=== PATIENT | female | born 1950 | race Caucasian/White ===

== ENCOUNTER 2020-06-30 09:27 | Outpatient (REF) | payer MEDICARE, SELFPAY ==
[2020-06-30 11:49] LABS: Alanine Aminotransferase 30 U/L (0-31); Anion Gap 13 (12-20); Aspartate Amino Transferase 25 U/L (5-31); Blood Urea Nitrogen 29 mg/dL (9-16); Calcium 9.1 mg/dL (8.4-10.2); Carbon Dioxide 25 mmol/L (22-29); Chloride 107 mmol/L (96-108); Cholesterol 167 mg/dL; Estimated Average Glucose 134 mg/dL; Estimated Glomerular Filt Rate 45; Glucose Fasting 154 mg/dL (60-99); HDL Cholesterol 43 mg/dL; Hemoglobin A1c % 6.3 %; LDL Cholesterol Calculated 73 mg/dl; Potassium 4.5 mmol/l (3.3-5.1); Sodium 140 mmol/L (135-145); Triglycerides 256 mg/dL
== END 2020-06-30 09:28 | disposition home or self-care (01) ==
LOC: HO.HMGCLDS 09:27
PROVIDERS: PCP Internal Medicine; Visit Provider Internal Medicine
DX: E11.29 Type 2 diabetes mellitus with other diabetic kidney complication (principal); E78.2 Mixed hyperlipidemia; E11.22 Type 2 diabetes mellitus with diabetic chronic kidney disease; E11.42 Type 2 diabetes mellitus with diabetic polyneuropathy; N18.9 Chronic kidney disease, unspecified; M47.27 Other spondylosis with radiculopathy, lumbosacral region; I87.2 Venous insufficiency (chronic) (peripheral)
CPT/HCPCS: 80048; 80061; 83036; 84450; 84460

== ENCOUNTER 2020-10-09 10:20 | Outpatient (REF) | payer MEDICARE, SELFPAY ==
[2020-10-09 11:47] LABS: Estimated Average Glucose 126 mg/dL
[2020-10-09 11:50] LABS: Alanine Aminotransferase 35 U/L (0-31); Anion Gap 12 (12-20); Aspartate Amino Transferase 28 U/L (5-31); Blood Urea Nitrogen 26 mg/dL (9-16); Calcium 9.2 mg/dL (8.4-10.2); Carbon Dioxide 28 mmol/L (22-29); Chloride 105 mmol/L (96-108); Cholesterol 181 mg/dL; Estimated Glomerular Filt Rate 43; Glucose Fasting 155 mg/dL (60-99); HDL Cholesterol 46 mg/dL; LDL Cholesterol Calculated 69 mg/dl; Potassium 4.4 mmol/L (3.3-5.1); Sodium 141 mmol/L (135-145); Triglycerides 332 mg/dL
[2020-10-09 12:24] LABS: Microalbum/Creatinine Ratio Ur 28.1 ug/mg cr
== END 2020-10-09 10:21 | disposition home or self-care (01) ==
LOC: HO.HMGCLDS 10:20
PROVIDERS: PCP Internal Medicine; Visit Provider Internal Medicine
DX: E11.29 Type 2 diabetes mellitus with other diabetic kidney complication (principal); E11.42 Type 2 diabetes mellitus with diabetic polyneuropathy; E78.2 Mixed hyperlipidemia; N18.9 Chronic kidney disease, unspecified; I10 Essential (primary) hypertension
CPT/HCPCS: 36415; 80048; 80061; 82043; 83036; 84450; 84460

== ENCOUNTER 2020-10-27 11:31 | Outpatient (REF) | payer MEDICARE, SELFPAY ==
--- NOTE | ~2020-10-27 | MM_ITS ---
EXAMINATION: MM SCREENING DIGITAL MAMMOGRAPHY, BILATERAL CLINICAL INFORMATION: Bilateral lumpectomy for bilateral breast cancer, May 2015. COMPARISON: Mammography: 07/18/2019, 07/16/2018, 06/23/2017, 05/23/2016 TECHNIQUE: Digital mammography is performed in craniocaudal and mediolateral oblique views along with computer-aided detection (CAD). Additional right exaggerated CC view is provided. Technologist notes challenging exam, patient in wheelchair. Exam tailored to patient capabilities. FINDINGS: There are scattered areas of fibroglandular density (ACR BI-RADS breast composition Category b). There are no significant masses, abnormal calcifications, or other abnormalities. There is minor bilateral scarring and surgical clips consistent with the prior bilateral lumpectomies. There is no significant changes from prior exams. MM/MM screening mammo BI IMPRESSION: No significant changes from prior studies. ASSESSMENT: BI-RADS 2: Benign RECOMMENDATION: Routine annual mammography screening. This patient's information was entered into a reminder system with a target due date for their next mammogram.
== END 2020-10-27 11:32 | disposition home or self-care (01) ==
LOC: HO.MAMMO 11:31
PROVIDERS: PCP Internal Medicine; Visit Provider Internal Medicine
DX: Z12.31 Encounter for screening mammogram for malignant neoplasm of breast (principal)
CPT/HCPCS: 77067

== ENCOUNTER 2021-03-23 10:27 | Outpatient (REF) | payer MEDICARE, SELFPAY ==
[2021-03-23 11:40] LABS: Anion Gap 15 (12-20); Blood Urea Nitrogen 23 mg/dL (9-16); Calcium 9.5 mg/dL (8.4-10.2); Carbon Dioxide 25 mmol/L (22-29); Chloride 106 mmol/L (96-108); Estimated Glomerular Filt Rate 41; Potassium 4.6 mmol/L (3.3-5.1); Sodium 141 mmol/L (135-145)
== END 2021-03-23 10:28 | disposition home or self-care (01) ==
LOC: HO.HMGCLDS 10:27
PROVIDERS: PCP Internal Medicine; Visit Provider Internal Medicine Hypertension Specialist
DX: N18.31 Chronic kidney disease, stage 3a (principal)
CPT/HCPCS: 36415; 80051; 82310; 82565; 84520

== ENCOUNTER 2021-04-16 09:20 | Outpatient (REF) | payer MEDICARE, SELFPAY ==
[2021-04-16 11:24] LABS: MANUAL DIFF FLAG NO
[2021-04-16 11:36] LABS: Basophils Percent Auto 0.3 % (0-2); Eosinophils Absolute Auto 0.1 X10*3/uL (0.0-0.4); Eosinophils Percent Auto 1.5 % (0-4); Hematocrit 48.3 % (37-47); Hemoglobin 16.2 g/dl (12.0-16.0); Imm Gran Abs Auto 0.02 X10*3/uL (0.00-0.03); Imm Gran Pct Auto 0.3 % (0.0-0.4); Lymphocytes Absolute Auto 1.6 X10*3/uL (1.2-4.9); Mean Corpuscular HGB Conc 33.5 g/dl (31.0-35.0); Mean Corpuscular Hemoglobin 32.2 pg (27.0-33.0); Mean Platelet Volume 11.7 fL (9.4-12.3); Monocytes Absolute Auto 0.3 X10*3/uL (0.1-1.2); Monocytes Percent Auto 4.1 % (2-11); Neutrophils Absolute Auto 5.7 X10*3/uL (2.0-8.3); Neutrophils Percent Auto 72.8 % (45-73); Platelet Count 145 X10*3/uL (160-400); Red Blood Count 5.03 X10*6/uL (4.20-5.50); Red Cell Distribution Width 14.1 % (11.0-16.0); White Blood Count 7.8 X10*3/uL (4.8-10.8)
[2021-04-16 11:42] LABS: Estimated Average Glucose 120 mg/dL; Hemoglobin A1c % 5.8 %
[2021-04-16 12:08] LABS: Alanine Aminotransferase 29 U/L (0-31); Albumin Level 4.2 g/dL (3.5-5.0); Alkaline Phosphatase 86 U/L (39-117); Anion Gap 14 (12-20); Aspartate Amino Transferase 24 U/L (5-31); Bilirubin Total 0.8 mg/dL (0.0-1.0); Blood Urea Nitrogen 27 mg/dL (9-16); Calcium 9.4 mg/dL (8.4-10.2); Carbon Dioxide 22 mmol/L (22-29); Chloride 109 mmol/L (96-108); Cholesterol 175 mg/dL; Estimated Glomerular Filt Rate 41; Glucose Random 149 mg/dL (60-115); HDL Cholesterol 45 mg/dL; LDL Cholesterol Calculated 67 mg/dl; Potassium 4.5 mmol/L (3.3-5.1); Sodium 140 mmol/L (135-145); Total Protein 6.4 g/dL (6.5-8.0); Triglycerides 319 mg/dL
== END 2021-04-16 09:21 | disposition home or self-care (01) ==
LOC: HO.HMGCLDS 09:20
PROVIDERS: PCP Internal Medicine; Visit Provider Internal Medicine Medical Oncology
DX: E11.29 Type 2 diabetes mellitus with other diabetic kidney complication (principal); E11.42 Type 2 diabetes mellitus with diabetic polyneuropathy; E78.2 Mixed hyperlipidemia; C50.911 Malignant neoplasm of unspecified site of right female breast; C50.912 Malignant neoplasm of unspecified site of left female breast
CPT/HCPCS: 36415; 80053; 80061; 83036; 85025

== ENCOUNTER 2021-09-21 10:24 | Outpatient (REF) | payer MEDICARE, SELFPAY ==
[2021-09-21 12:32] LABS: Alanine Aminotransferase 23 U/L (0-31); Albumin Level 3.9 g/dL (3.5-5.0); Alkaline Phosphatase 89 U/L (39-117); Anion Gap 16 (12-20); Aspartate Amino Transferase 18 U/L (5-31); Bilirubin Total 0.5 mg/dL (0.0-1.0); Blood Urea Nitrogen 25 mg/dL (9-16); Carbon Dioxide 24 mmol/L (22-29); Chloride 107 mmol/L (96-108); Estimated Glomerular Filt Rate 41; Glucose Random 208 mg/dL (60-115); Potassium 4.8 mmol/L (3.3-5.1); Sodium 142 mmol/L (135-145)
[2021-09-21 12:39] LABS: Creatinine Urine 97.65 mg/dL; Total Protein Urine Random < 7 mg/dL (<12)
== END 2021-09-21 10:25 | disposition home or self-care (01) ==
LOC: HO.HMGCLDS 10:24
PROVIDERS: Visit Provider Internal Medicine Hypertension Specialist
DX: N28.9 Disorder of kidney and ureter, unspecified (principal)
CPT/HCPCS: 36415; 80053; 84156

== ENCOUNTER 2021-10-29 11:15 | Outpatient (REF) | payer MEDICARE, SELFPAY ==
--- NOTE | ~2021-10-29 | MM_ITS ---
EXAMINATION: MM SCREENING DIGITAL BREAST TOMOSYNTHESIS, BILATERAL CLINICAL INFORMATION: Screening. Asymptomatic. Bilateral lumpectomy for breast cancer, 2015. COMPARISON: Mammography: 10/27/2020, 07/18/2019, 07/16/2018, 06/23/2017 TECHNIQUE: Digital breast tomosynthesis is performed in both the craniocaudal and mediolateral oblique views along with computer-aided detection (CAD). Synthesized 2D images are generated from the tomosynthesis. Additional left CC and left MLO x2 projections are obtained. FINDINGS: There are scattered areas of fibroglandular density (ACR BI-RADS breast composition Category b). There is minor bilateral scarring and posterior upper outer right surgical clips consistent with the prior surgery. Neither breast shows interval mass or architectural abnormality or abnormal calcifications. The axilla and skin contours are unremarkable. There are no significant changes. MM/MM tomosynthesis screening BI IMPRESSION: No mammographic evidence of malignancy. ASSESSMENT: BI-RADS 2: Benign RECOMMENDATION: Routine annual mammography screening. This patient's information was entered into a reminder system with a target due date for their next mammogram.
== END 2021-10-29 11:16 | disposition home or self-care (01) ==
LOC: HO.MAMMO 11:15
PROVIDERS: PCP Internal Medicine; Visit Provider Internal Medicine
DX: Z12.31 Encounter for screening mammogram for malignant neoplasm of breast (principal); Z85.3 Personal history of malignant neoplasm of breast
CPT/HCPCS: 77063; 77067

== ENCOUNTER 2021-12-17 09:48 | Outpatient (REF) | payer MEDICARE, SELFPAY ==
[2021-12-17 12:12] LABS: Estimated Average Glucose 117 mg/dL; Hemoglobin A1c % 5.7 %
[2021-12-17 12:16] LABS: Alanine Aminotransferase 25 U/L (0-31); Anion Gap 14 (12-20); Aspartate Amino Transferase 22 U/L (5-31); Blood Urea Nitrogen 29 mg/dL (9-16); Calcium 9.1 mg/dL (8.4-10.2); Carbon Dioxide 24 mmol/L (22-29); Chloride 107 mmol/L (96-108); Cholesterol 169 mg/dL; Estimated Glomerular Filt Rate 40; Glucose Fasting 155 mg/dL (60-99); HDL Cholesterol 45 mg/dL; LDL Cholesterol Calculated 75 mg/dl; Sodium 140 mmol/L (135-145); Triglycerides 247 mg/dL
== END 2021-12-17 09:49 | disposition home or self-care (01) ==
LOC: HO.HMGCLDS 09:48
PROVIDERS: PCP Internal Medicine; Visit Provider Internal Medicine
DX: I12.9 Hypertensive chronic kidney disease with stage 1 through stage 4 chronic kidney disease, or unspecified chronic kidney disease (principal); N18.9 Chronic kidney disease, unspecified; E11.22 Type 2 diabetes mellitus with diabetic chronic kidney disease; E11.29 Type 2 diabetes mellitus with other diabetic kidney complication; E11.42 Type 2 diabetes mellitus with diabetic polyneuropathy; E78.2 Mixed hyperlipidemia; Z78.0 Asymptomatic menopausal state
CPT/HCPCS: 36415; 80048; 80061; 82306; 83036; 84450; 84460

== ENCOUNTER 2021-12-21 10:33 | Outpatient (REF) | payer MEDICARE, SELFPAY ==
[2021-12-21 12:44] LABS: Microalbumin Urine < 5.0 mg/L
== END 2021-12-21 10:34 | disposition home or self-care (01) ==
LOC: HO.HMGCLNP 10:33
PROVIDERS: PCP Internal Medicine; Visit Provider Internal Medicine
DX: I12.9 Hypertensive chronic kidney disease with stage 1 through stage 4 chronic kidney disease, or unspecified chronic kidney disease (principal); E11.22 Type 2 diabetes mellitus with diabetic chronic kidney disease; E11.29 Type 2 diabetes mellitus with other diabetic kidney complication; E11.42 Type 2 diabetes mellitus with diabetic polyneuropathy; N18.9 Chronic kidney disease, unspecified; E78.2 Mixed hyperlipidemia; Z78.0 Asymptomatic menopausal state
CPT/HCPCS: 82043

== ENCOUNTER 2022-05-06 10:42 | Outpatient (REF) | payer MEDICARE, SELFPAY ==
[2022-05-06 14:22] LABS: Anion Gap 18 (12-20); Blood Urea Nitrogen 22 mg/dL (9-16); Calcium 9.2 mg/dL (8.4-10.2); Carbon Dioxide 23 mmol/L (22-29); Chloride 106 mmol/L (96-108); Estimated Glomerular Filt Rate 43; Potassium 4.5 mmol/L (3.3-5.1); Sodium 142 mmol/L (135-145)
== END 2022-05-06 10:43 | disposition home or self-care (01) ==
LOC: HO.HMGCLDS 10:42
PROVIDERS: PCP Internal Medicine; Visit Provider Internal Medicine Hypertension Specialist
DX: N18.31 Chronic kidney disease, stage 3a (principal)
CPT/HCPCS: 36415; 80051; 82310; 82565; 84520

== ENCOUNTER 2022-05-24 09:46 | Outpatient (REF) | payer MEDICARE, SELFPAY ==
[2022-05-24 11:56] LABS: Estimated Average Glucose 126 mg/dL
[2022-05-24 12:21] LABS: Alanine Aminotransferase 24 U/L (0-31); Anion Gap 14 (12-20); Aspartate Amino Transferase 20 U/L (5-31); Blood Urea Nitrogen 29 mg/dL (9-16); Calcium 8.7 mg/dL (8.4-10.2); Carbon Dioxide 25 mmol/L (22-29); Chloride 109 mmol/L (96-108); Cholesterol 155 mg/dL; Estimated Glomerular Filt Rate 44; Glucose Fasting 164 mg/dL (60-99); HDL Cholesterol 44 mg/dL; LDL Cholesterol Calculated 63 mg/dl; Sodium 143 mmol/L (135-145); Triglycerides 244 mg/dL
== END 2022-05-24 09:47 | disposition home or self-care (01) ==
LOC: HO.HMGCLDS 09:46
PROVIDERS: PCP Internal Medicine; Visit Provider Internal Medicine
DX: I12.9 Hypertensive chronic kidney disease with stage 1 through stage 4 chronic kidney disease, or unspecified chronic kidney disease (principal); E11.22 Type 2 diabetes mellitus with diabetic chronic kidney disease; N18.9 Chronic kidney disease, unspecified; E11.42 Type 2 diabetes mellitus with diabetic polyneuropathy; E78.2 Mixed hyperlipidemia
CPT/HCPCS: 36415; 80048; 80061; 82306; 83036; 84450; 84460

== ENCOUNTER 2022-11-18 10:23 | Outpatient (REF) | payer MEDICARE, SELFPAY ==
--- NOTE | ~2022-11-18 | MM_ITS ---
EXAMINATION: BONE DENSITOMETRY CLINICAL INDICATION: Chronic kidney disease, unspecified. COMPARISON: Previous BD dated 06/23/2017 and baseline BD dated 01/12/2006. TECHNIQUE: Using a Sustain360 DXA System (software version: 13.1) manufactured by [employer], dual-energy x-ray absorptiometry was performed of the lumbar spine and left hip. The images are of good technical quality. Summary results are attached. FINDINGS: AP SPINE L1-L4 (excluding L2 and L3): The data of L1-L4 has been changed to exclude the L2 and L3 vertebral bodies, because degenerative changes at these levels may cause overestimation of lumbar spine density. Current: BMD 1.644 g/cm2, Z-score 4.5, T-score 4.0, normal, 3.1% increase from previous, 24.4% increase from baseline (<5% change is not significant). Prior: BMD 1.594 g/cm2. Baseline: BMD 1.322 g/cm2. LEFT FEMUR, NECK: Current: BMD 0.809 g/cm2, Z-score -0.6, T-score -1.6, osteopenia. Prior: BMD 0.881 g/cm2. Baseline: BMD 0.970 g/cm2. LEFT FEMUR, TOTAL: Current: BMD 0.947 g/cm2, Z-score 0.3, T-score -0.5, normal, 2.0% decrease from previous, 12.7% decrease from baseline (<5% change is not significant). Prior: BMD 0.966 g/cm2. Baseline: BMD 1.085 g/cm2. IDENTIFIED RISK FACTORS: Menopause, recurrent falls, renal, secondary osteoporosis, thiazide. HISTORY OF FRACTURE: None listed. MEDICATIONS: Multivitamin, vitamin D. MM/XR DEXA axial skeleton IMPRESSION: 1. DIAGNOSIS: Osteopenia based on the lowest T-score value of -1.6 in the femoral neck applying World Health Organization criteria. 2. 10-YEAR FRACTURE RISK PREDICTION, FRAX: Major osteoporotic fracture (clinical spine, forearm, hip or shoulder) 8.9%. Hip fracture 1.4%. 3. Treatment Recommendations: NOF guidelines recommend consideration for treatment in postmenopausal women and men age 50 and older presenting with the following: -A hip or vertebral (clinical or morphometric) fracture. -T-score less than or equal to -2.5 at the femoral neck or spine after appropriate evaluation to exclude secondary causes. -Low bone mass at the hip or spine and a 10-year fracture probability by FRAX of greater than or equal to 3% for hip fracture or greater than or equal to 20% for major osteoporotic fracture based on the [place] adapted WHO algorithm. 4. Other Recommendations: All treatment decisions require clinical judgment and consideration of individual patient factors, including patient preferences, comorbidities, previous drug use, risk factors not captured in the FRAX model (e.g. frailty, falls, vitamin D deficiency, increased bone turnover, interval significant decline in bone density) and possible under or overestimation of fracture risk by FRAX. Additional medical evaluation for secondary cause of low bone mineral density may be appropriate. FUTURE SCAN RECOMMENDATION: People with diagnosed cases of osteoporosis or at high risk for fracture should have regular bone mineral density tests. For patients eligible for Medicare, routine testing is allowed once every 2 years. The testing frequency can be increased to one year for patients who have rapidly progressing disease, those who are receiving or discontinuing medical therapy to restore bone mass, or have additional risk factors.
--- NOTE | ~2022-11-18 | MM_ITS ---
EXAMINATION: MM SCREENING DIGITAL BREAST TOMOSYNTHESIS, BILATERAL CLINICAL INFORMATION: Screening. Asymptomatic. Personal history bilateral breast cancer status post bilateral lumpectomy 2014. COMPARISON: Mammography: 10/29/2021, 10/27/2020, 07/18/2019, 07/16/2018 TECHNIQUE: Digital breast tomosynthesis is performed in both the craniocaudal and mediolateral oblique views along with computer-aided detection (CAD). Synthesized 2D images are generated from the tomosynthesis. Additional exaggerated right CC and additional left CC views are provided. FINDINGS: There are scattered areas of fibroglandular density (ACR BI-RADS breast composition Category b). There is stable scarring consistent with the prior bilateral lumpectomy. Surgical clips again seen on the right. Neither breast demonstrates developing density or interval architectural abnormality or abnormal calcifications. There are no significant changes from prior studies. The axilla are unremarkable. MM/MM tomosynthesis screening BI IMPRESSION: No mammographic evidence of malignancy. ASSESSMENT: BI-RADS 2: Benign RECOMMENDATION: Routine annual mammography screening. This patient's information was entered into a reminder system with a target due date for their next mammogram.
== END 2022-11-18 10:24 | disposition home or self-care (01) ==
LOC: HO.MAMMO 10:23
PROVIDERS: PCP Internal Medicine; Visit Provider Internal Medicine
DX: Z13.820 Encounter for screening for osteoporosis (principal); Z12.31 Encounter for screening mammogram for malignant neoplasm of breast; Z78.0 Asymptomatic menopausal state
CPT/HCPCS: 77063; 77067; 77080

== ENCOUNTER 2022-11-21 09:19 | Outpatient (REF) | payer MEDICARE, SELFPAY ==
[2022-11-21 11:20] LABS: MANUAL DIFF FLAG NO
[2022-11-21 11:37] LABS: Basophils Percent Auto 0.5 % (0-2); Eosinophils Absolute Auto 0.1 X10*3/uL (0.0-0.4); Eosinophils Percent Auto 0.8 % (0-4); Hematocrit 47.8 % (37.0-47.0); Hemoglobin 15.9 g/dl (12.0-16.0); Imm Gran Abs Auto 0.02 X10*3/uL (0.00-0.03); Imm Gran Pct Auto 0.3 % (0.0-0.4); Lymphocytes Absolute Auto 1.3 X10*3/uL (1.2-4.9); Lymphocytes Percent Auto 20.8 % (20-40); Mean Corpuscular HGB Conc 33.3 g/dl (31.0-35.0); Mean Corpuscular Hemoglobin 32.1 pg (27.0-33.0); Mean Corpuscular Volume 96.4 fL (80.0-98.0); Mean Platelet Volume 11.6 fL (9.4-12.3); Monocytes Absolute Auto 0.3 X10*3/uL (0.1-1.2); Monocytes Percent Auto 4.7 % (2-11); Neutrophils Absolute Auto 4.7 x10*3/uL (2.0-8.3); Neutrophils Percent Auto 72.9 % (45-73); Platelet Count 129 X10*3/uL (160-400); Red Blood Count 4.96 X10*6/uL (4.20-5.50); Red Cell Distribution Width 14.2 % (11.0-16.0); White Blood Count 6.4 X10*3/uL (4.8-10.8)
[2022-11-21 11:53] LABS: Estimated Average Glucose 120 mg/dL; Hemoglobin A1c % 5.8 %
[2022-11-21 11:57] LABS: Alanine Aminotransferase 28 U/L (0-31); Anion Gap 12 (12-20); Aspartate Amino Transferase 22 U/L (5-31); Blood Urea Nitrogen 23 mg/dL (9-16); Calcium 9.1 mg/dL (8.4-10.2); Carbon Dioxide 24 mmol/L (22-29); Chloride 108 mmol/L (96-108); Cholesterol 167 mg/dL; Estimated Glomerular Filt Rate 45; Glucose Fasting 152 mg/dL (60-99); HDL Cholesterol 46 mg/dL; LDL Cholesterol Calculated 71 mg/dl; Potassium 4.2 mmol/L (3.3-5.1); Sodium 140 mmol/L (135-145); Triglycerides 250 mg/dL; Uric Acid 6.3 mg/dL (2.4-5.7)
[2022-11-21 12:01] LABS: Microalbum/Creatinine Ratio Ur 252.7 ug/mg cr
[2022-11-21 12:17] LABS: Vitamin D 25-OH Total 55.9 ng/mL (>30)
== END 2022-11-21 09:20 | disposition home or self-care (01) ==
LOC: HO.HMGCLDS 09:19
PROVIDERS: Absent Provider Internal Medicine Hypertension Specialist; PCP Internal Medicine; Visit Provider Internal Medicine
DX: I12.9 Hypertensive chronic kidney disease with stage 1 through stage 4 chronic kidney disease, or unspecified chronic kidney disease (principal); M10.9 Gout, unspecified; E11.42 Type 2 diabetes mellitus with diabetic polyneuropathy; E11.29 Type 2 diabetes mellitus with other diabetic kidney complication; E78.2 Mixed hyperlipidemia; N18.31 Chronic kidney disease, stage 3a; Z78.0 Asymptomatic menopausal state
CPT/HCPCS: 36415; 80048; 80061; 82043; 82306; 83036; 84450; 84460; 84550; 85025

== ENCOUNTER 2022-11-28 11:16 | Outpatient (AMB) | payer MEDICARE, SELFPAY ==
--- NOTE | 2022-11-28 11:24 | A.OFFPC_ITS ---
Vital Signs 11/28/22 11:58 Height 5 ft 5 in Weight 283 lb BMI 47.1 BP 132/60 Blood Pressure Location Lt brachial Position Sitting Pulse 72 Pulse Source Pulse Oximeter Pulse Oximetry (%) 97 Oxygen Delivery Method Room Air Intake Visit Reasons: 6 month follow up Intake Note: Pt is here today for her 6 months f/u Allergies No Known Allergies Allergy (Mild, Verified 09/17/23 17:25) NONE Medication List - Last Reconciled 11/28/22 by Savannah Mendiola MD acetaminophen ER 650 mg PO Q8H PRN allopurinol 300 mg PO DAILY aspirin 81 mg PO DAILY blood sugar diagnostic (FreeStyle Lite Strips) Test blood sugar once a day blood-glucose meter As directed cholecalciferol (vitamin D3) (Vitamin D3) 50 mcg PO DAILY clotrimazole 1% 1 appl topical BID PRN 3 months gabapentin 300 mg PO BID hydrochlorothiazide 12.5 mg PO DAILY lancets As directed lisinopril 30 mg PO DAILY metformin 1,000 mg PO BID 90 days metoprolol succinate ER 25 mg PO BEDTIME multivitamin 1 cap PO DAILY omega 9-grl-was-fish oil 1,200 (144-216) mg (Fish Oil) 1 cap PO TID pravastatin 20 mg PO DAILY Tobacco use date assessed: 11/28/22 Fall risk assessment: 2 + Falls in past year Last assessed Fall Risk: 11/28/22 HPI 6 month follow up HPI Details 73-year-old lady diabetes mellitus, mixe d dyslipidemia and chronic kidney disease stage 3, here today for follow-up. Has been compliant with her medications and following her diet, unable to exercise much due to joint pain and weakness in both lower extremities. Complaining of intermittent episodes of loose stools on and off for the last several weeks, denies any accompanying melena no hematochezia no abdominal pain, no nausea or vomiting reported. [facility] Medical History (Updated 09/17/23 @ 17:37 by Savannah Mendiola MD) History of breast cancer History of gout Chronic kidney disease Lumbosacral radiculopathy due to degenerative joint disease of spine Thoracic disc herniation Cervical stenosis of spinal canal Osteoarthritis of multiple joints Peripheral venous insufficiency Type 2 diabetes mellitus with polyneuropathy Diabetes mellitus with kidney complication, without long-term current use of insulin Mixed dyslipidemia Osteopenia Surgical History History of right hip replacement H/O laparoscopy H/O section History of tonsillectomy H/O lumpectomy Family History Father Insulin dependent diabetes mellitus Mother HTN (hypertension) Stroke Brother HTN (hypertension) Brother No problems noted. Son No problems noted. Social History Housing: House Alcohol intake: never Patient Tobacco Use Status: Former Tobacco user e-Cigarette/Vaping Use: Never Used Second Hand Smoke Exposure: No Current occupational status: retired Cognitive needs: No Hearing needs: No Vision needs: No Questionnaire PHQ-9 Over the last 2 weeks, how often have you been bothered by any of the following problems? 1. Little interest or pleasure in doing things: not at all 2. Feeling down, depressed, or hopeless: not at all 3. Trouble falling or staying asleep, or sleeping too much: not at all 4. Feeling tired or having little energy: not at all 5. Poor appetite or overeating: not at all 6. Feeling bad about yourself - or that you are a failure or have let yourself or your family down: not at all 7. Trouble concentrating on things, such as reading the newspaper or watching television: not at all 8. Moving or speaking so slowly that other people could have noticed. Or the opposite - being so fidgety or restless that you have been moving around a lot more than usual: not at all 9. Thoughts that you would be better off or of hurting yourself in some way: not at all Total score: 0 Depression Screening Interpretation: Negative 41071 - PHQ-9 Billing: Yes Source: Developed by Drs. Angel Corrigan, Cathy Bernardo, Oliver Zamora and colleagues, with an educational janes from [employer]. Thrive Questionnaire Date Thrive assessed: 11/28/22 I am a: Patient What is your living situation today?: I have a steady place to live Within the past 12 months, did the food you bought not last and you didn't have the money to get more?: Never true Within the past 12 months, did you worry whether your food would run out before you got money to buy more?: Never true Do you have trouble paying for medicines?: No Do you have trouble getting transportation to medical appointments?: No Do you have trouble paying your heating and electricity bill?: No Do you have trouble taking care of your child, family member or friend?: No Do you have trouble with day-to-day activities such as bathing, preparing meals, shopping, managing finances, etc.?: No Are you currently unemployed and looking for a job?: No Are you interested in more education?: No AUDIT C Alcohol Use Questionnaire (AUDIT-C) 1. How often do you have a drink containing alcohol?: Never Total Score: 0 Score Reviewed/Action Taken: Yes JEREMY-7 AMB Questionnaire JEREMY-7 Date JEREMY - 7 assessed: 11/28/22 Feeling nervous, anxious, or on edge: 0 = Not at all Not being able to stop or control worryin = Not at all Worrying too much about different things: 0 = Not at all Trouble relaxin = Not at all Being so restless that it is hard to sit still: 0 = Not at all Becoming easily annoyed or irritable: 0 = Not at all Feeling afraid as if something awful might happen: 0 = Not at all Total JEREMY-7 score (0-4 normal; 5-9 mild; 10-14 moderate; 15-21 severe): 0 Source: Developed by Drs. Angel Corrigan, Cathy Bernardo, Oliver Zamora and colleagues, with an educational janes from [employer]. JEREMY-7 Assessment Billing JEREMY-7 Assessment Tool: JEREMY-7 Assessment 29277 Review of Systems Const Denies daytime sleepiness, Denies fatigue, Denies headache(s) and Denies weakness Eyes Reports no additional complaints and Denies change in vision ENT Denies dizziness, Denies headache(s), Denies nasal congestion and Denies sore throat Card Denies chest pain, Denies lightheadedness, Denies palpitations and Denies dyspnea Resp Denies chest congestion, Denies cough, Denies dyspnea and Denies wheezing GI Reports as per HPI, Denies abdominal pain, Denies melena, Denies bloating, Denies hematochezia and Denies heartburn Denies urinary frequency, Denies dysuria and Denies urinary urgency Musc Denies joint swelling and Reports stiffness Neuro Denies dizziness, Denies headache(s) and Denies weakness Endo Denies fatigue, Denies polydipsia, Denies polyuria and Denies palpitations Destin/Lymph Denies easy bruising Aller/Immun Denies seasonal rhinorrhea and Denies wheezing Physical exam (Primary Care) Vital Signs: Last Vital Signs Pulse 72 11/28/22 11:58 BP 132/60 11/28/22 11:58 Pulse Ox 97 11/28/22 11:58 Oxygen Delivery Method Room Air 11/28/22 11:58 BMI result Body Mass Index 47.1 BMI Assessment/Plan discussion: High BMI High, discussed plan: lifestyle, weight reduction, dietary and physical activity Tobacco/Smoking Status: Tobacco use Status Tobacco use date assessed 11/28/22 11/28/22 11:26 Patient Tobacco Use Status Former Tobacco user 11/28/22 11:26 e-Cigarette/Vaping Use Never Used 11/28/22 11:26 Depression Screening Interpretation: Negative Thrive Assessment: Date of Thrive Assessment Date Thrive assessed 12/22/21 11/28/22 11:26 Const General: comfortable and no acute distress Nutritional Appearance: obese morbidly obese Orientation/consciousness: patient oriented x3 Limitations: ambulation with walker HENMT Ears: external ears normal General nose exam: Normal external nose present Mouth: moist mucous membranes Neck Neck: Yes full ROM, Yes no lymphadenopathy and Yes supple Resp Effort & Inspection: normal respiratory effort and able to speak in complete sentences Auscultation: clear to auscultation bilaterally Cardio Rate: regular rate Rhythm: regular rhythm Heart sounds: S1 normal heart sound present and S2 normal heart sound present GI Inspection: Yes obesity Palpation (GI): Soft to palpation, nontender, no guarding and no masses Auscultation: Hyperactive bowel sounds present General: Yes no CVA tenderness Back/Spine/Pelvis Back: no CVA tenderness and No back tenderness Neuro General: patient oriented x3, Normal light touch and pain sensation and no focal motor deficits Cognition (Neuro): normal cognition Gait exam (Neuro): Assisted gait required Gait assisted method: walker Motor exam (neuro): 5/5 motor strength present throughout Extrem General: Yes no joint enlargement, Yes no clubbing, cyanosis or edema and Yes no calf tenderness Results Reviewed Results Reviewed: ENTERED: 11/21/[address] [facility] [address]: Savannah Mendiola MD ORDERED: CBC Auto Diff Test Result Flag Reference Site WBC 6.4 4.8-10.8 X10*3/uL RBC 4.96 4.20-5.50 X10*6 /uL HGB 15.9 12.0-16.0 g/dl HCT 47.8 H 37.0-47.0 % MCV 96.4 80.0-98.0 fL MCH 32.1 27.0-33.0 pg MCHC 33.3 31.0-35.0 g/dl RDW 14.2 11.0-16.0 % PLT 129 L 160-400 X10*3/uL MPV 11.6 9.4-12.3 fL Neut Pct Auto 72.9 45-73 % ImGran Pct Auto 0.3 0.0-0.4 % Lymp Pct Auto 20.8 20-40 % [place] Pct Auto 4.7 2-11 % Eos Pct Auto 0.8 0-4 % Baso Pct Auto 0.5 0-2 % NRBC Pct Auto 0.0 0.0-0.2 /100WBC ANC Neut Abs # 4.7 2.0-8.3 x10*3/uL ImGran Abs Auto 0.02 0.00-0.03 X10*3/uL Lymph Abs Auto 1.3 1.2-4.9 X10*3/uL [place] Abs Auto 0.3 0.1-1.2 X10*3/uL Eos Abs Auto 0.1 0.0-0.4 X10*3/uL Baso Abs Auto 0.0 0.0-0.2 X10*3/uL NRBC Abs Auto 0.000 0.0-0.012 X10*3/uL ENTERED: 11/21/[address] [facility] [address]: ORDERED: Met Prof Fast, Uric, AST, ALT, Lipid Panel, Vitamin D 25-OH Test Result Flag Reference Site Sodium 140 135-145 mmol/L Potassium 4.2 3.3-5.1 mmol/L CL 108 96-108 mmol/L CO2 24 22-29 mmol/L Gap 12 12-20 BUN 23 H 9-16 mg/dL Creat 1.18 0.5-1.4 mg/dL EGFR 45 NOTE: For -[place] individuals, multiply the result by 1.210. Chronic Kidney Disease: Estimated GFR < 60 mL/min/1.73m2 Severe Kidney Disease: Estimated GFR < 15 mL/min/1.73m2 FBS 152 H 60-99 mg/dL A fasting glucose of 126 mg/dl or greater on more than one occasion is considered diagnostic of diabetes. Uric Acid 6.3 H 2.4-5.7 mg/dL CA 9.1 8.4-10.2 mg/dL AST (GOT) 22 5-31 U/L ALT (GPT) 28 0-31 U/L Triglyceride 250 mg/dL Desirable Triglyceride: less than 150 mg/dL Borderline High Triglyceride 150-199 mg/dL High Triglyceride: 200-499 mg/dL Very High Triglyceride: greater than or equal to 5OO mg/dL Chol 167 mg/dL Desirable Cholesterol: less than 200 mg/dL Borderline High Cholesterol: 200-239 mg/dL High Cholesterol: greater than 239 mg/dL LDL Calculated 71 mg/dl Desirable LDL: less than 100 mg/dL Near Optimal/Above Optimal LDL: 110-129 mg/dL Borderline High LDL: 130-159 mg/dL High LDL: 160-189 mg/dL Very High LDL: greater than or equal to 190 mg/dL HDL 46 mg/dL Desirable HDL: greater than 40 mg/dL Note: This HDL assay may give artificially low results in patients with liver disease. Vit D 25-OH Tot 55.9 >30 ng/mL Health Based Reference Values* < 20 ng/mL Deficient 20-30 ng/mL Insufficient > 30 ng/mL Sufficient Laboratory Tests 11/21/22 09:28 Estimat Average Glucose 120 Hemoglobin A1c % 5.8 Assessment and Plan Assessment & Plan (1) Essential hypertension: Code(s): I10 - Essential (primary) hypertension Plan: Blood pressure controlled, continue with lisinopril and hydrochlorothiazide followed by Nephrology (2) Type 2 diabetes mellitus with polyneuropathy: Code(s): E11.42 - Type 2 diabetes mellitus with diabetic polyneuropathy Plan: Diabetes mellitus well controlled with hemoglobin A1c at 5.8%. Continue with metformin 1000 mg 1 tablet twice a day, (3) Mixed dyslipidemia: Code(s): E78.2 - Mixed hyperlipidemia Plan: Fasting lipids showed elevated triglycerides but HD dL and LDL cholesterols are within normal limits. Continued on pravastatin 20 mg at bedtime, continue with [place] 3 fatty acid supplements 1 capsule 3 times a day. (4) Frequent loose stools: Code(s): R19.7 - Diarrhea, unspecified Plan: Likely IBS, Prescription sent for dicyclomine 10 mg per capsule to take 1 capsule to 15 minutes before eating at least twice a day, increase dietary fiber intake, return to clinic if no improvement of symptoms seen after 2 weeks Orders: Orders Hemoglobin A1c 04/09/23 I10 - Essential (primary) hypertension, N18.9 - Chronic kidney disease, unspecified, E11.42 - Type 2 diabetes mellitus with diabetic polyneuropathy, E78.2 - Mixed hyperlipidemia Aspartate Amino Transferase 04/09/23 I10 - Essential (primary) hypertension, N18.9 - Chronic kidney disease, unspecified, E11.42 - Type 2 diabetes mellitus with diabetic polyneuropathy, E78.2 - Mixed hyperlipidemia Lipid Panel 04/09/23 I10 - Essential (primary) hypertension, N18.9 - Chronic kidney disease, unspecified, E11.42 - Type 2 diabetes mellitus with diabetic polyneuropathy, E78.2 - Mixed hyperlipidemia Alanine Aminotransferase 04/09/23 I10 - Essential (primary) hypertension, N18.9 - Chronic kidney disease, unspecified, E11.42 - Type 2 diabetes mellitus with diabetic polyneuropathy, E78.2 - Mixed hyperlipidemia Basic Metabolic Panel Fasting 04/09/23 I10 - Essential (primary) hypertension, N18.9 - Chronic kidney disease, unspecified, E11.42 - Type 2 diabetes mellitus with diabetic polyneuropathy, E78.2 - Mixed hyperlipidemia Medications: New dicyclomine take 15 mins ac 10 mg PO BID 60 caps 0RF Coding Level of Care Code Est Pt Level 4 (48551) Diagnoses Essential hypertension I10 Type 2 diabetes mellitus with polyneuropathy E11.42 Mixed dyslipidemia E78.2 Frequent loose stools R19.7 Additional Codes JEREMY-7 Assessment Billing - JEREMY-7 Assessment Tool: JEREMY-7 Assessment 53293 ([id number])
[2022-11-28 11:58] VITALS: BP 132/60; PULSE 72; O2SAT 97; BMI 47.1
== END 2022-11-28 12:26 | disposition home or self-care (01) ==
LOC: HO.HMGC 11:16
PROVIDERS: PCP Internal Medicine; Visit Provider Internal Medicine
DX: I10 Essential (primary) hypertension (principal); E11.42 Type 2 diabetes mellitus with diabetic polyneuropathy; E78.2 Mixed hyperlipidemia; R19.7 Diarrhea, unspecified
CPT/HCPCS: 99214

== ENCOUNTER 2023-05-01 09:30 | Outpatient (REF) | payer MEDICARE, SELFPAY ==
[2023-05-01 12:02] LABS: Estimated Average Glucose 114 mg/dL; Hemoglobin A1c % 5.6 % (<6.0)
[2023-05-01 12:25] LABS: Alanine Aminotransferase 27 U/L (0-31); Anion Gap 14 (12-20); Aspartate Amino Transferase 22 U/L (5-31); Blood Urea Nitrogen 29 mg/dL (9-16); Calcium 9.4 mg/dL (8.4-10.2); Carbon Dioxide 22 mmol/L (22-29); Chloride 110 mmol/L (96-108); Cholesterol 167 mg/dL (<200); Estimated Glomerular Filt Rate 48; Glucose Fasting 148 mg/dL (60-99); HDL Cholesterol 46 mg/dL (>40); LDL Cholesterol Calculated 70 mg/dL (<100); Potassium 4.4 mmol/L (3.3-5.1); Sodium 142 mmol/L (135-145); Triglycerides 257 mg/dL (<150)
== END 2023-05-01 09:31 | disposition home or self-care (01) ==
LOC: HO.HMGCLDS 09:30
PROVIDERS: PCP Internal Medicine; Visit Provider Internal Medicine
DX: I12.9 Hypertensive chronic kidney disease with stage 1 through stage 4 chronic kidney disease, or unspecified chronic kidney disease (principal); E11.22 Type 2 diabetes mellitus with diabetic chronic kidney disease; N18.9 Chronic kidney disease, unspecified; E11.42 Type 2 diabetes mellitus with diabetic polyneuropathy; E78.2 Mixed hyperlipidemia
CPT/HCPCS: 36415; 80048; 80061; 83036; 84450; 84460

== ENCOUNTER 2023-06-15 11:16 | Outpatient (AMB) | payer MEDICARE, SELFPAY ==
[2023-06-15 11:43] VITALS: BP 142/76; PULSE 80; O2SAT 94; BMI 45.9
--- NOTE | 2023-06-15 11:43 | A.OFFPC_ITS ---
Vital Signs 06/15/23 11:43 Height 5 ft 5 in Weight 276 lb BMI 45.9 BP 142/76 H Blood Pressure Location Lt brachial Position Sitting Pulse 80 Pulse Source Pulse Oximeter Pulse Oximetry (%) 94 Oxygen Delivery Method Room Air Intake Visit Reasons: Annual Physical Intake Note: Pt is here for her Annual PE Allergies No Known Allergies Allergy (Mild, Verified 06/15/23 12:16) NONE Medication List - Last Reconciled 06/15/23 by Savannah Mendiola MD acetaminophen ER 650 mg PO Q8H PRN allopurinol 300 mg PO DAILY amoxicillin 2,000 mg (4 x 500 mg) PO ONCE 1 day aspirin 81 mg PO DAILY blood sugar diagnostic (FreeStyle Lite Strips) Test blood sugar once a day blood-glucose meter As directed cholecalciferol (vitamin D3) (Vitamin D3) 50 mcg PO DAILY dicyclomine 10 mg PO BID gabapentin 300 mg PO BID hydrochlorothiazide 12.5 mg PO DAILY lancets As directed lisinopril 30 mg PO DAILY metformin 1,000 mg PO BID 90 days metoprolol succinate ER 25 mg PO BEDTIME multivitamin 1 cap PO DAILY omega 5-zbi-elr-fish oil 1,200 (144-216) mg (Fish Oil) 1 cap PO TID pravastatin 20 mg PO DAILY Tobacco use date assessed: 06/15/23 Fall risk assessment: No Falls in past year Last assessed Fall Risk: 06/15/23 Dental Screening Dental Screen Date: 06/15/23 Did you have a dental visit in the last 12 months?: Yes Did you have a dental problem in the last 6 months where you did not have access to dental care?: No Was dental information given to patient?: Patient has dentist HPI Annual Physical HPI Details 73 year old lady with diabetes mellitus, hypertension, chronic kidney disease, hyperlipidemia, osteoarthritis of multiple joints, history of gout, peripheral venous insufficiency history of bilateral breast cancer, here today for her physical exam. She is up-to-date with her screening colonoscopy and mammogram and bone density scan which showed presence of osteopenia and multiple sites. No history of fractures. She is up-to-date with all her vaccinations She is currently being seen by Nephrology for chronic kidney disease, advised to avoid NSAIDs and recommended to start on a SGLT-2 inhibitor . Still having recurrent diarrhea usually after food intake. Has been taking Imodium so that just which affords temporary relief year. Has tried ice item or 20 mg taken 1 tablet twice a day which she did not have any effect. [facility] Medical History Right shoulder tendinitis Chronic kidney disease Lumbosacral radiculopathy due to degenerative joint disease of spine Thoracic disc herniation Cervical stenosis of spinal canal Osteoarthritis of multiple joints Gout Peripheral venous insufficiency Type 2 diabetes mellitus with polyneuropathy Diabetes mellitus with kidney complication, without long-term current use of insulin Mixed dyslipidemia Osteopenia Carcinoma of left breast Carcinoma of right breast Surgical History History of right hip replacement H/O laparoscopy H/O section History of tonsillectomy H/O lumpectomy Family History Father Insulin dependent diabetes mellitus Mother HTN (hypertension) Stroke Brother HTN (hypertension) Brother No problems noted. Son No problems noted. Social History Housing: House Alcohol intake: never Patient Tobacco Use Status: Former Tobacco user e-Cigarette/Vaping Use: Never Used Second Hand Smoke Exposure: No Current occupational status: retired Cognitive needs: No Hearing needs: No Vision needs: No Questionnaire PHQ-9 Over the last 2 weeks, how often have you been bothered by any of the following problems? 1. Little interest or pleasure in doing things: not at all 2. Feeling down, depressed, or hopeless: not at all 3. Trouble falling or staying asleep, or sleeping too much: not at all 4. Feeling tired or having little energy: not at all 5. Poor appetite or overeating: not at all 6. Feeling bad about yourself - or that you are a failure or have let yourself or your family down: not at all 7. Trouble concentrating on things, such as reading the newspaper or watching television: not at all 8. Moving or speaking so slowly that other people could have noticed. Or the opposite - being so fidgety or restless that you have been moving around a lot more than usual: not at all 9. Thoughts that you would be better off or of hurting yourself in some way: not at all Total score: 0 Depression Screening Interpretation: Negative Depression Screening Done: Yes 72664 - PHQ-9 Billing: Yes Source: Developed by Drs. Angel Corrigan, Oliver Lovell and colleagues, with an educational janes from [employer]. Thrive Questionnaire Date Thrive assessed: 06/15/23 I am a: Patient What is your living situation today?: I have a steady place to live Within the past 12 months, did the food you bought not last and you didn't have the money to get more?: Never true Within the past 12 months, did you worry whether your food would run out before you got money to buy more?: Never true Do you have trouble paying for medicines?: No Do you have trouble getting transportation to medical appointments?: No Do you have trouble paying your heating and electricity bill?: No Do you have trouble taking care of your child, family member or friend?: No Do you have trouble with day-to-day activities such as bathing, preparing meals, shopping, managing finances, etc.?: No Are you currently unemployed and looking for a job?: No Are you interested in more education?: No AUDIT C Alcohol Use Questionnaire (AUDIT-C) 1. How often do you have a drink containing alcohol?: Never Total Score: 0 JEREMY-7 AMB Questionnaire JEREMY-7 Date JEREMY - 7 assessed: 06/15/23 Feeling nervous, anxious, or on edge: 0 = Not at all Not being able to stop or control worryin = Not at all Worrying too much about different things: 0 = Not at all Trouble relaxin = Not at all Being so restless that it is hard to sit still: 0 = Not at all Becoming easily annoyed or irritable: 0 = Not at all Feeling afraid as if something awful might happen: 0 = Not at all Total JEREMY-7 score (0-4 normal; 5-9 mild; 10-14 moderate; 15-21 severe): 0 Source: Developed by Drs. Angel Corrigan, Cathy Bernardo, Oliver Zamora and colleagues, with an educational janes from [employer]. JEREMY-7 Assessment Billing JEREMY-7 Assessment Tool: JEREMY-7 Assessment 63379 Review of Systems Const Denies daytime sleepiness, Denies fatigue, Denies headache(s) and Denies weakness Eyes Denies change in vision ENT Denies dizziness, Denies headache(s), Denies nasal congestion and Denies sore throat Card Denies chest pain, Denies lightheadedness, Denies palpitations and Denies dyspnea Resp Denies chest congestion, Denies cough, Denies dyspnea and Denies wheezing GI Denies abdominal pain, Denies melena, Denies bloating, Denies hematochezia, Reports tenesmus and Denies heartburn Denies urinary frequency, Denies dysuria and Denies urinary urgency Musc Reports as per HPI, Denies joint swelling and Reports stiffness Neuro Denies dizziness, Denies headache(s) and Denies weakness Endo Denies fatigue, Denies polydipsia, Denies polyuria and Denies palpitations Destin/Lymph Denies easy bruising Aller/Immun Denies seasonal rhinorrhea and Denies wheezing Physical exam (Primary Care) Vital Signs: Last Vital Signs Pulse 80 06/15/23 11:43 BP 142/76 H 06/15/23 11:43 Pulse Ox 94 06/15/23 11:43 Oxygen Delivery Method Room Air 06/15/23 11:43 BMI result Body Mass Index 45.9 BMI Assessment/Plan discussion: High BMI High, discussed plan: lifestyle, weight reduction, dietary and physical activity Tobacco/Smoking Status: Tobacco use Status Tobacco use date assessed 06/15/23 06/15/23 11:52 Patient Tobacco Use Status Former Tobacco user 06/15/23 11:52 e-Cigarette/Vaping Use Never Used 06/15/23 11:52 Depression Screening Interpretation: Negative Thrive Assessment: Date of Thrive Assessment Date Thrive assessed 12/22/21 06/15/23 11:52 Const General: comfortable and no acute distress Nutritional Appearance: obese morbidly obese Orientation/consciousness: patient oriented x3 Limitations: ambulation with walker HENMT Ears: hearing grossly normal bilaterally and external ears normal General nose exam: Normal external nose present Mouth: moist mucous membranes Neck Neck: Yes full ROM, Yes no lymphadenopathy and Yes supple Resp Effort & Inspection: normal respiratory effort and able to speak in complete sentences Auscultation: clear to auscultation bilaterally Cardio Rate: regular rate Rhythm: regular rhythm Heart sounds: S1 normal heart sound present and S2 normal heart sound present GI Inspection: Yes obesity Palpation (GI): Soft to palpation, nontender, no guarding and no masses Auscultation: normal bowel sounds General: Yes no CVA tenderness Back/Spine/Pelvis Back: no CVA tenderness and No back tenderness Neuro General: patient oriented x3, Normal light touch and pain sensation and no focal motor deficits Cognition (Neuro): normal cognition Gait exam (Neuro): Assisted gait required Gait assisted method: walker Motor exam (neuro): 5/5 motor strength present throughout Extrem General: Yes no joint enlargement, Yes no clubbing, cyanosis or edema and Yes no calf tenderness Psych Appearance: grossly normal and well kempt Mental Status: mental status grossly normal Speech and movement: Normal speech and movement present Affect: normal affect Attitude: cooperative Thought process: Normal thought process present Results Reviewed Results Reviewed: ENTERED: 05/01/23 [facility]: ORDERED: Met Prof Fast, AST, ALT, Lipid Panel Test Result Flag Reference Site Sodium 142 135-145 mmol/L Potassium 4.4 3.3-5.1 mmol/L CL 110 H 96-108 mmol/L CO2 22 22-29 mmol/L Gap 14 12-20 BUN 29 H 9-16 mg/dL Creat 1.12 0.5-1.4 mg/dL EGFR 48 NOTE: For -[place] individuals, multiply the result by 1.210. Chronic Kidney Disease: Estimated GFR < 60 mL/min/1.73m2 Severe Kidney Disease: Estimated GFR < 15 mL/min/1.73m2 FBS 148 H 60-99 mg/dL A fasting glucose of 126 mg/dl or greater on more than one occasion is considered diagnostic of diabetes. CA 9.4 8.4-10.2 mg/dL AST (GOT) 22 5-31 U/L ALT (GPT) 27 0-31 U/L Triglyceride 257 H <150 mg/dL Desirable Triglyceride: less than 150 mg/dL Borderline High Triglyceride 150-199 mg/dL High Triglyceride: 200-499 mg/dL Very High Triglyceride: greater than or equal to 5OO mg/dL Cholesterol 167 <200 mg/dL Desirable Cholesterol: less than 200 mg/dL Borderline High Cholesterol: 200-239 mg/dL High Cholesterol: greater than 239 mg/dL LDL Calculated 70 <100 mg/dL Desirable LDL: less than 100 mg/dL Near Optimal/Above Optimal LDL: 110-129 mg/dL Borderline High LDL: 130-159 mg/dL High LDL: 160-189 mg/dL Very High LDL: greater than or equal to 190 mg/dL HDL 46 >40 mg/dL Desirable HDL: greater than 40 mg/dL Note: This HDL assay may give artificially low results in patients with liver disease. Laboratory Tests 05/01/23 09:38 Estimat Average Glucose 114 Hemoglobin A1c % 5.6 ENTERED: 11/21/22 [facility] [address]: Savannah Mendiola MD ORDERED: CBC Auto Diff Test Result Flag Reference Site WBC 6.4 4.8-10.8 X10*3/uL RBC 4.96 4.20-5.50 X10*6/uL HGB 15.9 12.0-16.0 g/dl HCT 47.8 H 37.0-47.0 % MCV 96.4 80.0-98.0 fL MCH 32.1 27.0-33.0 pg MCHC 33.3 31.0-35.0 g/dl RDW 14.2 11.0-16.0 % PLT 129 L 160-400 X10*3/uL ENTERED: 11/21/22 [facility] DR: ORDERED: MICARU Test Result Flag Reference Site Creat, Ur 128.60 mg/dL Microalbumin Ur 325.0 mg/L Alb/Creat Ratio 252.7 ug/mg cr Albumin/Creatinine Ratio Reference Ranges: Normal: < 30 ug/mg creatinine Microalbuminuria: 30 - 300 ug/mg creatinine Clinical Albuminuria: > 300 ug/mg creatinine Assessment and Plan Assessment & Plan (1) Annual visit for general adult medical examination with abnormal findings: Code(s): Z00.01 - Encounter for general adult medical examination with abnormal findings Plan: Reviewed recent fasting labs patient. Continue with dental visit every 6 months and regular eye exams, once a year. Take adequate calcium in diet and vitamin-D 3 at 2000 IU per cap once a day, in addition to weight-bearing exercises to help maintain good muscle tone and weight control. She is up-to-date with her screening mammogram, bone density scan and screening colonoscopy, up-to-date with all her vaccinations. (2) Essential hypertension: Code(s): I10 - Essential (primary) hypertension Plan: Patient has chronic kidney disease, followed by Dr. Athreya, avoidance of NSAIDs , started on Jardiance 10 mg once a day for renal protection, continue low-salt diet and lisinopril-HCT (3) Type 2 diabetes mellitus with polyneuropathy: Code(s): E11.42 - Type 2 diabetes mellitus with diabetic polyneuropathy Plan: Continue with metformin, added Jardiance 10 mg once a day in a.m. an hour before breakfast for renal protection swell reminded to get her diabetes retinopathy screening done yearly. Up-to-date with all her vaccinations (4) Mixed dyslipidemia: Code(s): E78.2 - Mixed hyperlipidemia Plan: Reviewed recent fasting lipid profile with patient with levels at goal except for elevated triglyceride . Continue with pravastatin and [place] 3 fatty acid supplements , in addition to adherence to low-cholesterol diet and regular exercise, at least 30 minutes 3 to 4 times a week. Advised patient to make healthy food choices, eat more fruits, vegetables, whole grains, wild caught fish and low-fat dairy. Limit amount of meat and fried or fatty food products, as well as processed foods and fast foods. Follow-up scheduled with repeat fasting lipid panel in 3 months. Orders: Orders Lipid Panel Today E11.42 - Type 2 diabetes mellitus with diabetic polyneuropathy, E78.2 - Mixed hyperlipidemia, I10 - Essential (primary) hypertension Alanine Aminotransferase Today E11.42 - Type 2 diabetes mellitus with diabetic polyneuropathy, E78.2 - Mixed hyperlipidemia, I10 - Essential (primary) hypertension Aspartate Amino Transferase Today E11.42 - Type 2 diabetes mellitus with diabetic polyneuropathy, E78.2 - Mixed hyperlipidemia, I10 - Essential (primary) hypertension Basic Metabolic Panel Fasting Today E11.42 - Type 2 diabetes mellitus with diabetic polyneuropathy, E78.2 - Mixed hyperlipidemia, I10 - Essential (primary) hypertension Medications: New Jardiance (empagliflozin) 10 mg PO QAM 30 tabs 4RF NS Coding Level of Care Code Est Pt Prev Care >65y(70912) Diagnoses Annual visit for general adult medical examination with abnormal findings Z00.01 Essential hypertension I10 Type 2 diabetes mellitus with polyneuropathy E11.42 Mixed dyslipidemia E78.2 Additional Codes JEREMY-7 Assessment Billing - JEREMY-7 Assessment Tool: JEREMY-7 Assessment [id number] ([id number])
== END 2023-06-15 13:38 | disposition home or self-care (01) ==
PROVIDERS: PCP Internal Medicine; Visit Provider Internal Medicine
DX: Z00.00 Encounter for general adult medical examination without abnormal findings (principal); I10 Essential (primary) hypertension; E11.42 Type 2 diabetes mellitus with diabetic polyneuropathy; E78.2 Mixed hyperlipidemia
CPT/HCPCS: 99397

== ENCOUNTER 2023-09-11 09:36 | Outpatient (REF) | payer MEDICARE, SELFPAY ==
[2023-09-11 12:37] LABS: Alanine Aminotransferase 25 U/L (0-31); Anion Gap 13 (12-20); Aspartate Amino Transferase 20 U/L (5-31); Blood Urea Nitrogen 31 mg/dL (9-16); Calcium 9.1 mg/dL (8.4-10.2); Carbon Dioxide 25 mmol/L (22-29); Chloride 108 mmol/L (96-108); Cholesterol 153 mg/dL (<200); Estimated Glomerular Filt Rate 41; Glucose Fasting 140 mg/dL (60-99); HDL Cholesterol 45 mg/dL (>40); LDL Cholesterol Calculated 64 mg/dL (<100); Potassium 4.7 mmol/L (3.3-5.1); Sodium 141 mmol/L (135-145); Triglycerides 220 mg/dL (<150)
== END 2023-09-11 09:37 | disposition home or self-care (01) ==
LOC: HO.HMGCLDS 09:36
PROVIDERS: PCP Internal Medicine; Visit Provider Internal Medicine
DX: I10 Essential (primary) hypertension (principal); E11.42 Type 2 diabetes mellitus with diabetic polyneuropathy; E78.2 Mixed hyperlipidemia
CPT/HCPCS: 36415; 80048; 80061; 84450; 84460

== ENCOUNTER 2023-09-15 11:28 | Outpatient (AMB) | payer MEDICARE, SELFPAY ==
--- NOTE | 2023-09-15 11:32 | A.OFFPC_ITS ---
Vital Signs 09/15/23 11:38 Height 5 ft 5 in Weight 276 lb BMI 45.9 BP 128/76 Blood Pressure Location Lt brachial Position Sitting Pulse 73 Pulse Source Pulse Oximeter Pulse Oximetry (%) 96 Oxygen Delivery Method Room Air Intake Visit Reasons: 3 month fu Intake Note: Pt is here today for 3 months follow up visit. Allergies No Known Allergies Allergy (Mild, Verified 09/17/23 17:25) NONE Medication List - Last Reconciled 09/17/23 by Savannah Mendiola MD acetaminophen ER 650 mg PO Q8H PRN allopurinol 300 mg PO DAILY amoxicillin 2,000 mg (4 x 500 mg) PO ONCE 1 day aspirin 81 mg PO DAILY blood sugar diagnostic (FreeStyle Lite Strips) Test blood sugar once a day blood-glucose meter As directed cholecalciferol (vitamin D3) (Vitamin D3) 50 mcg PO DAILY dicyclomine 10 mg PO QID 30 days gabapentin 300 mg PO BID hydrochlorothiazide 12.5 mg PO DAILY Jardiance (empagliflozin) 10 mg PO QAM NS lancets As directed lisinopril 30 mg PO DAILY metformin 1,000 mg PO BID 90 days metoprolol succinate ER 25 mg PO BEDTIME multivitamin 1 cap PO DAILY omega 2-yvz-ico-fish oil 1,200 (144-216) mg (Fish Oil) 1 cap PO TID pravastatin 20 mg PO DAILY Tobacco use date assessed: 09/15/23 Dental Screening Dental Screen Date: 09/15/23 HPI 3 month fu HPI Details 73-year-old lady here today for follow-u p on her diabetes mellitus, and hyperlipidemia. Currently taking Jardiance 10 mg daily in the morning and metformin 1000 mg twice a day as well as pravastatin 20 mg at bedtime. She has chronic kidney disease, currently being followed by Dr. Gregorio. Blood pressure is within normal limits. [facility] Medical History (Updated 09/17/23 @ 17:37 by Savannah Mendiola MD) History of breast cancer History of gout Chronic kidney disease Lumbosacral radiculopathy due to degenerative joint disease of spine Thoracic disc herniation Cervical stenosis of spinal canal Osteoarthritis of multiple joints Peripheral venous insufficiency Type 2 diabetes mellitus with polyneuropathy Diabetes mellitus with kidney complication, without long-term current use of insulin Mixed dyslipidemia Osteopenia Surgical History History of right hip replacement H/O laparoscopy H/O section History of tonsillectomy H/O lumpectomy Family History Father Insulin dependent diabetes mellitus Mother HTN (hypertension) Stroke Brother HTN (hypertension) Brother No problems noted. Son No problems noted. Social History Housing: House Alcohol intake: never Patient Tobacco Use Status: Former Tobacco user e-Cigarette/Vaping Use: Never Used Second Hand Smoke Exposure: No Current occupational status: retired Cognitive needs: No Hearing needs: No Vision needs: No Questionnaire PHQ-9 Over the last 2 weeks, how often have you been bothered by any of the following problems? Depression Screening Interpretation: Negative Depression Screening Done: Yes Source: Developed by Drs. Angel Corrigan, Cathy Bernardo, Oliver Zamora and colleagues, with an educational janes from [employer]. Thrive Questionnaire Date Thrive assessed: 06/15/23 JEREMY-7 AMB Questionnaire JEREMY-7 Date JEREMY - 7 assessed: 06/15/23 Source: Developed by Drs. Angel Corrigan, Cathy Bernardo, Oliver Zamora and colleagues, with an educational janes from [employer]. Review of Systems Const Denies daytime sleepiness, Denies fatigue, Denies headache(s) and Denies weakness Eyes Denies change in vision ENT Denies dizziness, Denies headache(s), Denies nasal congestion and Denies sore throat Card Details: Has been experiencing intermittent episodes of sharp pains in love of chest last for several seconds and resolved spontaneously Denies lightheadedness, Denies palpitations and Denies dyspnea Resp Denies chest congestion, Denies cough, Denies dyspnea and Denies wheezing GI Denies abdominal pain, Denies melena, Denies bloating, Denies hematochezia and Denies heartburn Denies urinary frequency, Denies dysuria and Denies urinary urgency Musc Denies joint swelling and Reports stiffness Neuro Denies dizziness, Denies headache(s) and Denies weakness Endo Denies fatigue, Denies polydipsia, Denies polyuria and Denies palpitations Destin/Lymph Denies easy bruising Aller/Immun Denies seasonal rhinorrhea and Denies wheezing Physical exam (Primary Care) Vital Signs: Last Vital Signs Pulse 73 09/15/23 11:38 BP 128/76 09/15/23 11:38 Pulse Ox 96 09/15/23 11:38 Oxygen Delivery Method Room Air 09/15/23 11:38 BMI result Body Mass Index 45.9 BMI Assessment/Plan discussion: High BMI High, discussed plan: lifestyle, weight reduction, dietary and physical activity Tobacco/Smoking Status: Tobacco use Status Tobacco use date assessed 09/15/23 09/15/23 11:41 Patient Tobacco Use Status Former Tobacco user 09/15/23 11:32 e-Cigarette/Vaping Use Never Used 09/15/23 11:32 Depression Screening Interpretation: Negative Thrive Assessment: Date of Thrive Assessment Date Thrive assessed 06/15/23 09/15/23 11:32 Const General: comfortable and no acute distress Nutritional Appearance: obese morbidly obese Orientation/consciousness: patient oriented x3 Limitations: ambulation with walker HENMT Ears: external ears normal General nose exam: Normal external nose present Mouth: moist mucous membranes Neck Neck: Yes full ROM, Yes no lymphadenopathy and Yes supple Resp Effort & Inspection: normal respiratory effort and able to speak in complete sentences Auscultation: clear to auscultation bilaterally Cardio Rate: regular rate Rhythm: regular rhythm Heart sounds: S1 normal heart sound present and S2 normal heart sound present GI Inspection: Yes obesity Palpation (GI): Soft to palpation, nontender, no guarding and no masses Auscultation: normal bowel sounds General: Yes no CVA tenderness Back/Spine/Pelvis Back: no CVA tenderness and No back tenderness Neuro General: patient oriented x3, Normal light touch and pain sensation and no focal motor deficits Cognition (Neuro): normal cognition Gait exam (Neuro): Assisted gait required Gait assisted method: walker Motor exam (neuro): 5/5 motor strength present throughout Extrem General: Yes no joint enlargement, Yes no clubbing, cyanosis or edema and Yes no calf tenderness Psych Appearance: grossly normal and well kempt Mental Status: mental status grossly normal Speech and movement: Normal speech and movement present Affect: normal affect Attitude: cooperative Thought process: Normal thought process present Results AMB Hemoglobin A1c AMB Hemoglobin A1c 6.0 % Last Edit by ELZBIETA Petersen on 09/15/23 12:2 0 Results Reviewed Results Reviewed: Laboratory Last Values Hgb A1c (Clinic) 6.0 % (4.0-6.0) 09/15/23 11:54 Name: Ashley Hernandez Age/Sex: 73/F : 1950 Unit#: [id number] Attend Dr: Savannah Mendiola MD Re09/11/23 Status: DEP [facility] Disch: SPEC : [id number] MANOHAR: 09/11/23 STATUS: COMP REQ : [id number] RECD: 09/11/[address]: Savannah Mendiola MD COMP: 09/11/23 ENTERED: 09/11/23 [facility] DR: ORDERED: Met Prof Fast, AST, ALT, Lipid Panel Test Result Flag Reference Sodium 141 135-145 mmol/L Potassium 4.7 3.3-5.1 mmol/L CL 108 96-108 mmol/L CO2 25 22-29 mmol/L Gap 13 12-20 BUN 31 H 9-16 mg/dL Creat 1.27 0.5-1.4 mg/dL EGFR 41 NOTE: For -[place] individuals, multiply the result by 1.210. Chronic Kidney Disease: Estimated GFR < 60 mL/min/1.73m2 Severe Kidney Disease: Estimated GFR < 15 mL/min/1.73m2 FBS 140 H 60-99 mg/dL A fasting glucose of 126 mg/dl or greater on more than one occasion is considered diagnostic of diabetes. CA 9.1 8.4-10.2 mg/dL AST (GOT) 20 5-31 U/L ALT (GPT) 25 0-31 U/L Triglyceride 220 H <150 mg/dL Desirable Triglyceride: less than 150 mg/dL Borderline High Triglyceride 150-199 mg/dL High Triglyceride: 200-499 mg/dL Very High Triglyceride: greater than or equal to 5OO mg/dL Cholesterol 153 <200 mg/dL Desirable Cholesterol: less than 200 mg/dL Borderline High Cholesterol: 200-239 mg/dL High Cholesterol: greater than 239 mg/dL LDL Calculated 64 <100 mg/dL Desirable LDL: less than 100 mg/dL Near Optimal/Above Optimal LDL: 110-129 mg/dL Borderline High LDL: 130-159 mg/dL High LDL: 160-189 mg/dL Very High LDL: greater than or equal to 190 mg/dL HDL 45 >40 mg/dL Desirable HDL: greater than 40 mg/dL Note: This HDL assay may give artificially low results in patients with liver disease. Laboratory Tests 09/15/23 11:54 Hgb A1c (Clinic) 6.0 Assessment and Plan Assessment & Plan (1) Type 2 diabetes mellitus with polyneuropathy: Code(s): E11.42 - Type 2 diabetes mellitus with diabetic polyneuropathy Plan: Diabetes mellitus controlled with hemoglobin A1c at 6%, continued on Jardiance 10 mg daily in a.m. and metformin a 1000 mg 1 tablet twice a day. Has chronic kidney disease, with GFR at 41. Will continue to monitor. Currently he sees Dr. Brown for her routine diabetes retinopathy screening (2) Mixed dyslipidemia: Code(s): E78.2 - Mixed hyperlipidemia Plan: Reviewed recent fasting lipid profile with patient with levels within normal limits . Continue 20 mg pravastatin at bedtime , in addition to adherence to low-cholesterol diet and regular exercise, at least 30 minutes 3 to 4 times a week. Advised patient to make healthy food choices, eat more fruits, vegetables, whole grains, wild caught fish and low-fat dairy. Limit amount of meat and fried or fatty food products, as well as processed foods and fast foods. Follow-up scheduled with repeat fasting lipid panel in 3 months. (3) Chronic kidney disease: Comment: Followed by Dr. Gregorio Code(s): N18.9 - Chronic kidney disease, unspecified Plan: Followed by Dr. Gregorio (4) Diabetes mellitus with kidney complication, without long-term current use of insulin: Code(s): E11.29 - Type 2 diabetes mellitus with other diabetic kidney complication Plan: Continued on Jardiance and metformin, ordered 12 lead EKG, cannot do it at office as patient unable to get up on exam table, patient advised to get it done at the hospital at Cardiology Department (5) History of gout: Code(s): Z87.39 - Personal history of other diseases of the musculoskeletal system and connective tissue Plan: Check uric acid level Orders: Orders ECG 12 lead EKG 09/15/23 E11.29 - Type 2 diabetes mellitus with other diabetic kidney complication, E11.42 - Type 2 diabetes mellitus with diabetic polyneuropathy, E78.2 - Mixed hyperlipidemia, I10 - Essential (primary) hypertension, N18.9 - Chronic kidney disease, unspecified Aspartate Amino Transferase 01/07/24 E11.29 - Type 2 diabetes mellitus with other diabetic kidney complication, E11.42 - Type 2 diabetes mellitus with diabetic polyneuropathy, E78.2 - Mixed hyperlipidemia, M10.9 - Gout, unspecified Microalbumin, Random (w Creat) 01/07/24 E11.29 - Type 2 diabetes mellitus with other diabetic kidney complication, E11.42 - Type 2 diabetes mellitus with diabetic polyneuropathy, E78.2 - Mixed hyperlipidemia, M10.9 - Gout, unspecified AMB Hemoglobin A1c 09/15/23 Z13.9 - Encounter for screening, unspecified Alanine Aminotransferase 01/07/24 E11.29 - Type 2 diabetes mellitus with other diabetic kidney complication, E11.42 - Type 2 diabetes mellitus with diabetic polyneuropathy, E78.2 - Mixed hyperlipidemia, M10.9 - Gout, unspecified Lipid Panel 01/07/24 E11.29 - Type 2 diabetes mellitus with other diabetic kidney complication, E11.42 - Type 2 diabetes mellitus with diabetic polyneuropathy, E78.2 - Mixed hyperlipidemia, M10.9 - Gout, unspecified Hemoglobin A1c 01/07/24 E11.29 - Type 2 diabetes mellitus with other diabetic kidney complication, E11.42 - Type 2 diabetes mellitus with diabetic polyneuropathy, E78.2 - Mixed hyperlipidemia, M10.9 - Gout, unspecified Uric Acid 01/07/24 E11.29 - Type 2 diabetes mellitus with other diabetic kidney complication, E11.42 - Type 2 diabetes mellitus with diabetic polyneuropathy, E78.2 - Mixed hyperlipidemia, M10.9 - Gout, unspecified Coding Level of Care Code Est Pt Level 4 (64463) Diagnoses Type 2 diabetes mellitus with polyneuropathy E11.42 Mixed dyslipidemia E78.2 Chronic kidney disease N18.9 Diabetes mellitus with kidney complication, without long-term current use of insulin E11. History of gout Z87.39
[2023-09-15 11:38] VITALS: BP 128/76; PULSE 73; O2SAT 96; BMI 45.9
== END 2023-09-15 13:07 | disposition home or self-care (01) ==
PROVIDERS: PCP Internal Medicine; Visit Provider Internal Medicine
DX: E11.42 Type 2 diabetes mellitus with diabetic polyneuropathy (principal); E78.2 Mixed hyperlipidemia; N18.9 Chronic kidney disease, unspecified; E11.29 Type 2 diabetes mellitus with other diabetic kidney complication; Z87.39 Personal history of other diseases of the musculoskeletal system and connective tissue
CPT/HCPCS: 83036; 99214

== ENCOUNTER → 2023-09-20 10:36 | Outpatient (REF) | payer MEDICARE, SELFPAY ==
--- NOTE | 2023-09-20 10:42 | ECG_ITS ---
Test Reason : E11.42 Blood Pressure : / mmHG Vent. Rate : 073 BPM Atrial Rate : 073 BPM P-R Int : 170 ms QRS Dur : 132 ms QT Int : 416 ms P-R-T Axes : 034 183 002 degrees QTc Int : 458 ms Normal sinus rhythm Indeterminate axis Right bundle branch block Abnormal ECG When compared with ECG of 29-MAY-2015 15:23, Right bundle branch block is now Present Minimal criteria for Anteroseptal infarct are no longer Present Referred By: Savannah Mendiola Electronically Signed By:JESI MARTELL MD
== END ==
LOC: HO.CARD 10:36
PROVIDERS: PCP Internal Medicine; Visit Provider Internal Medicine
DX: I12.9 Hypertensive chronic kidney disease with stage 1 through stage 4 chronic kidney disease, or unspecified chronic kidney disease (principal); E11.22 Type 2 diabetes mellitus with diabetic chronic kidney disease; N18.9 Chronic kidney disease, unspecified; E11.42 Type 2 diabetes mellitus with diabetic polyneuropathy; E78.2 Mixed hyperlipidemia
CPT/HCPCS: 93005

== ENCOUNTER → 2023-09-20 10:42 | Outpatient (BNV) | payer MEDICARE, SELFPAY | PROVIDERS: PCP Internal Medicine; Visit Provider Internal Medicine Cardiovascular Disease | DX: I45.10 Unspecified right bundle-branch block (principal); E11.42 Type 2 diabetes mellitus with diabetic polyneuropathy | CPT/HCPCS: 93010 ==

== ENCOUNTER 2023-12-06 11:15 | Outpatient (REF) | payer MEDICARE, SELFPAY ==
--- NOTE | ~2023-12-06 | MM_ITS ---
EXAMINATION: MM SCREENING DIGITAL BREAST TOMOSYNTHESIS, BILATERAL CLINICAL INFORMATION: Screening. Asymptomatic. History of bilateral breast cancer. COMPARISON: Mammography: This study is compared with prior exams dating back to 2019. TECHNIQUE: Digital breast tomosynthesis is performed in both the craniocaudal and mediolateral oblique views along with computer-aided detection (CAD). Synthesized 2D images are generated from the tomosynthesis. FINDINGS: There are scattered areas of fibroglandular density (ACR BI-RADS breast composition Category b). There are no significant masses, abnormal calcifications, or other abnormalities. Surgical clips are present in the upper outer quadrant of the right breast. Bilateral post surgical changes are present. MM/MM tomosynthesis screening BI IMPRESSION: No mammographic evidence of malignancy. ASSESSMENT: BI-RADS BI-RADS 2 - Benign Findings RECOMMENDATION: Routine annual mammography screening. 1 year F/U This examination should not preclude the clinical evaluation of a suspicious palpable abnormality. This patient's information was entered into a reminder system with a target due date for their next mammogram.
== END 2023-12-06 11:16 | disposition home or self-care (01) ==
LOC: HO.MAMMO 11:15
PROVIDERS: PCP Internal Medicine; Visit Provider Internal Medicine
DX: N05.9 Unspecified nephritic syndrome with unspecified morphologic changes (principal); N18.30 Chronic kidney disease, stage 3 unspecified; Z12.31 Encounter for screening mammogram for malignant neoplasm of breast
CPT/HCPCS: 36415; 77063; 77067; 80053; 81001; 82570; 84156; 85025

== ENCOUNTER → 2023-12-06 11:30 | Outpatient (BNV) | payer MEDICARE, SELFPAY | PROVIDERS: PCP Internal Medicine; Visit Provider Radiology Diagnostic Radiology | DX: Z12.31 Encounter for screening mammogram for malignant neoplasm of breast (principal) | CPT/HCPCS: 77063; 77067 ==

== ENCOUNTER 2023-12-06 11:56 | Outpatient (REF) | payer MEDICARE, SELFPAY ==
[2023-12-06 13:25] LABS: MANUAL DIFF FLAG NO
[2023-12-06 13:30] LABS: Basophils Percent Auto 0.5 % (0-2); Eosinophils Absolute Auto 0.1 X10*3/uL (0.0-0.4); Eosinophils Percent Auto 1.6 % (0-4); Hemoglobin 15.9 g/dl (12.0-16.0); Imm Gran Abs Auto 0.03 X10*3/uL (0.00-0.03); Imm Gran Pct Auto 0.4 % (0.0-0.4); Lymphocytes Absolute Auto 1.7 X10*3/uL (1.2-4.9); Lymphocytes Percent Auto 20.3 % (20-40); Mean Corpuscular HGB Conc 33.1 g/dl (31.0-35.0); Mean Corpuscular Hemoglobin 32.3 pg (27.0-33.0); Mean Corpuscular Volume 97.4 fL (80.0-98.0); Monocytes Absolute Auto 0.4 X10*3/uL (0.1-1.2); Monocytes Percent Auto 5.2 % (2-11); Neutrophils Absolute Auto 6.1 x10*3/uL (2.0-8.3); Platelet Count 142 X10*3/uL (160-400); Red Blood Count 4.93 X10*6/uL (4.20-5.50); Red Cell Distribution Width 14.3 % (11.0-16.0); White Blood Count 8.5 X10*3/uL (4.8-10.8)
[2023-12-06 13:56] LABS: Appearance Urine Clear; Color Urine Yellow; Glucose Urine UA Negative (Negative); Leukocyte Esterase Urine Moderate (2+) (Negative); Nitrite Urine Negative (Negative); PH 5.5 (5.0-9.0); UMIC TRIGGER UA YES; Urine Blood Negative (Negative); Urine Ketones Negative (Negative); Urine Protein Negative (Neg-Trace)
[2023-12-06 13:59] LABS: Bacteria Urine None Seen (None Seen); RBC Urine 0-2 /HPF (0-2); WBC Urine 21-50 /HPF (0-5)
[2023-12-06 14:45] LABS: Alanine Aminotransferase 23 U/L (0-31); Albumin Level 3.9 g/dL (3.5-5.0); Alkaline Phosphatase 80 U/L (39-117); Anion Gap 14 (12-20); Aspartate Amino Transferase 19 U/L (5-31); Bilirubin Total 0.4 mg/dL (0.0-1.0); Blood Urea Nitrogen 27 mg/dL (9-16); Calcium 9.3 mg/dL (8.4-10.2); Carbon Dioxide 22 mmol/L (22-29); Chloride 111 mmol/L (96-108); Estimated Glomerular Filt Rate 46; Glucose Random 114 mg/dL (60-115); Potassium 4.5 mmol/L (3.3-5.1); Sodium 142 mmol/L (135-145); Total Protein 6.2 g/dL (6.5-8.0)
[2023-12-06 15:00] LABS: Creatinine Urine 114.61 mg/dL; Total Protein Urine Random 10 mg/dL (<12)
== END 2023-12-06 11:57 | disposition home or self-care (01) ==
LOC: HO.HMGCLDS 11:56
PROVIDERS: PCP Internal Medicine; Visit Provider Internal Medicine Hypertension Specialist
DX: Z13.89 Encounter for screening for other disorder (principal)
CPT/HCPCS: 36415; 80053; 81001; 82570; 84156; 85025

== ENCOUNTER 2023-12-12 10:54 | Outpatient (AMB) | payer MEDICARE, SELFPAY ==
[2023-12-12 10:54] VITALS: BP 126/62; PULSE 41; O2SAT 94
--- NOTE | 2023-12-12 10:54 | HO.NEPHOV ---
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 Accompanied by: Spouse Allergies No Known Allergies Allergy (Mild, Verified 12/12/23 10:57) NONE Medication List - Last Reconciled 12/12/23 by Glenn Gregorio MD acetaminophen ER 650 mg PO Q8H PRN allopurinol 300 mg PO DAILY aspirin 81 mg PO DAILY blood sugar diagnostic (FreeStyle Lite Strips) Test blood sugar once a day blood-glucose meter As directed cholecalciferol (vitamin D3) (Vitamin D3) 50 mcg PO DAILY dicyclomine 10 mg PO QID 30 days gabapentin 300 mg PO BID hydrochlorothiazide 12.5 mg PO DAILY lancets As directed lisinopril 30 mg PO DAILY metformin 1,000 mg PO BID 90 days metoprolol succinate ER 25 mg PO BEDTIME multivitamin 1 cap PO DAILY omega 8-uud-zdc-fish oil 1,200 (144-216) mg (Fish Oil) 1 cap PO TID pravastatin 20 mg PO DAILY HPI Comments Details: . Ashley is a pleasant 73-year-old woman with a history of longstanding diabetes mellitus hypertension with CKD. She is a history of chronic NSAID use in the past. 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 Her baseline creatinine is around 1.2 mg/dL. She is here for annual follow-up. He has no specific complaints today. Jardiance has been prescribed but she is unable to take it due to the expense factor. [facility] Medical History (Updated 12/12/23 @ 12:46 by Glenn Gregorio MD) History of breast cancer History of gout Chronic kidney disease Lumbosacral radiculopathy due to degenerative joint disease of spine Thoracic disc herniation Cervical stenosis of spinal canal Osteoarthritis of multiple joints Peripheral venous insufficiency Type 2 diabetes mellitus with polyneuropathy Diabetes mellitus with kidney complication, without long-term current use of insulin Mixed dyslipidemia Osteopenia Surgical History History of right hip replacement H/O laparoscopy H/O section History of tonsillectomy H/O lumpectomy Family History Father Insulin dependent diabetes mellitus Mother HTN (hypertension) Stroke Brother HTN (hypertension) Brother No problems noted. Son No problems noted. Social History Housing: House Alcohol intake: never Patient Tobacco Use Status: Former Tobacco user e-Cigarette/Vaping Use: Never Used Second Hand Smoke Exposure: No Current occupational status: retired Cognitive needs: No Hearing needs: No Vision needs: No Physical Exam Vital Signs: Last Vital Signs Pulse 41 L 12/12/23 10:54 BP 126/62 12/12/23 10:54 Pulse Ox 94 12/12/23 10:54 Oxygen Delivery Method Room Air 12/12/23 10:54 Awake. Comfortable. Neck is supple. Mucosa moist. Lungs bilateral scattered rhonchi. Heart S1-S2 heard no gallop. Abdomen soft. Extremities no edema. No involuntary movements. No myoclonus. Results Reviewed Nephrology Results: Hgb 15.9 g/dl (12.0-16.0) 12/06/23 WBC 8.5 X10*3/uL (4.8-10.8) 12/06/23 Plt Count 142 X10*3/uL (160-400) L 12/06/23 Sodium 142 mmol/L (135-145) 12/06/23 Potassium 4.5 mmol/L (3.3-5.1) 12/06/23 Chloride 111 mmol/L (96-108) H 12/06/23 Carbon Dioxide 22 mmol/L (22-29) 12/06/23 BUN 27 mg/dL (9-16) H 12/06/23 Creatinine 1.15 mg/dL (0.5-1.4) 12/06/23 Calcium 9.3 mg/dL (8.4-10.2) 12/06/23 Urine Protein Negative mg/dL (Neg-Trace) 12/06/23 Urine Creatinine 114.61 mg/dL 12/06/23 Assessment & Plan Assessment & Plan (1) CKD (chronic kidney disease) stage 3, GFR 30-59 ml/min: Code(s): N18.30 - Chronic kidney disease, stage 3 unspecified Category: Medical (2) Chronic kidney disease: Code(s): N18.9 - Chronic kidney disease, unspecified Category: Medical (3) Type 2 diabetes mellitus with polyneuropathy: Code(s): E11.42 - Type 2 diabetes mellitus with diabetic polyneuropathy Category: Medical (4) Essential hypertension: Code(s): I10 - Essential (primary) hypertension Category: Medical Plan . Ashley is a pleasant elderly woman with a history of CKD in a setting of longstanding diabetes mellitus hypertension and chronic NSAID use. Baseline serum creatinine is around 1.2 mg/dL. At present renal function is close to baseline. Blood pressure is well controlled. Goal is to slow the progression of renal disease Continue to avoid NSAIDs. Maintain A1c less than 7%. Maintain blood pressure less than 130/80 mm Hg. She should continue with low-salt diet and she will also benefit from weight loss Agree with adding Jardiance for cardiorenal protection. However she is reluctant to start this medication. I have reassured her that it is safe to start Jardiance from a renal standpoint. She is still concerned about the cost issues and she will discuss with her PCP regarding this. No changes were made today. Coding Level of Care Code Est Pt Level 4 (02697) Diagnoses CKD (chronic kidney disease) stage 3, GFR 30-59 ml/min N18.30 Chronic kidney disease N18.9 Type 2 diabetes mellitus with polyneuropathy E11.42 Essential hypertension I10
== END 2023-12-12 11:18 | disposition home or self-care (01) ==
PROVIDERS: PCP Internal Medicine; Visit Provider Internal Medicine Hypertension Specialist
DX: I12.9 Hypertensive chronic kidney disease with stage 1 through stage 4 chronic kidney disease, or unspecified chronic kidney disease (principal); E11.22 Type 2 diabetes mellitus with diabetic chronic kidney disease; N18.30 Chronic kidney disease, stage 3 unspecified; E11.42 Type 2 diabetes mellitus with diabetic polyneuropathy
CPT/HCPCS: 99214

== ENCOUNTER → 2023-12-12 10:54 | Outpatient (BNVA) | payer MEDICARE, SELFPAY | PROVIDERS: PCP Internal Medicine; Visit Provider Internal Medicine Hypertension Specialist | DX: I12.9 Hypertensive chronic kidney disease with stage 1 through stage 4 chronic kidney disease, or unspecified chronic kidney disease (principal); E11.22 Type 2 diabetes mellitus with diabetic chronic kidney disease; N18.30 Chronic kidney disease, stage 3 unspecified; E11.42 Type 2 diabetes mellitus with diabetic polyneuropathy | CPT/HCPCS: 99212 ==

== ENCOUNTER 2024-01-15 08:59 | Outpatient (REF) | payer MEDICARE, SELFPAY ==
[2024-01-15 14:16] LABS: Estimated Average Glucose 117 mg/dL; Hemoglobin A1c % 5.7 % (<6.0)
[2024-01-15 14:53] LABS: Creatinine Urine 59.96 mg/dL
[2024-01-15 15:10] LABS: Alanine Aminotransferase 23 U/L (0-31); Aspartate Amino Transferase 22 U/L (5-31); Cholesterol 147 mg/dL (<200); HDL Cholesterol 45 mg/dL (>40); LDL Cholesterol Calculated 61 mg/dL (<100); Triglycerides 206 mg/dL (<150); Uric Acid 6.5 mg/dL (2.4-5.7)
== END 2024-01-15 09:00 | disposition home or self-care (01) ==
LOC: HO.HMGCLDS 08:59
PROVIDERS: PCP Internal Medicine; Visit Provider Internal Medicine
DX: M10.9 Gout, unspecified (principal); E11.42 Type 2 diabetes mellitus with diabetic polyneuropathy; E11.29 Type 2 diabetes mellitus with other diabetic kidney complication; E78.2 Mixed hyperlipidemia
CPT/HCPCS: 36415; 80061; 82043; 82570; 83036; 84450; 84460; 84550

== ENCOUNTER 2024-01-19 11:29 | Outpatient (AMB) | payer MEDICARE, SELFPAY ==
--- NOTE | 2024-01-19 11:24 | A.OFFPC_ITS ---
Intake Visit Reasons: 4 mo f/u labs Allergies No Known Allergies Allergy (Mild, Verified 01/19/24 11:48) NONE Medication List - Last Reconciled 01/19/24 by Savannah Mendiola MD acetaminophen ER 650 mg PO Q8H PRN allopurinol 300 mg PO DAILY aspirin 81 mg PO DAILY blood sugar diagnostic (FreeStyle Lite Strips) Test blood sugar once a day blood-glucose meter As directed cholecalciferol (vitamin D3) (Vitamin D3) 50 mcg PO DAILY dicyclomine 10 mg PO QID 30 days gabapentin 300 mg PO BID hydrochlorothiazide 12.5 mg PO DAILY lancets As directed lisinopril 30 mg PO DAILY metformin 1,000 mg PO BID 90 days metoprolol succinate ER 25 mg PO BEDTIME multivitamin 1 cap PO DAILY omega 5-gvf-snb-fish oil 1,200 (144-216) mg (Fish Oil) 1 cap PO TID pravastatin 20 mg PO DAILY Tobacco use date assessed: 01/19/24 Fall risk assessment: 2 + Falls in past year Last assessed Fall Risk: 01/19/24 Dental Screening Dental Screen Date: 01/19/24 Did you have a dental visit in the last 12 months?: Yes Did you have a dental problem in the last 6 months where you did not have access to dental care?: No Was dental information given to patient?: Patient has dentist HPI 4 mo f/u labs HPI Details 73-year-old lady with diabetes mellitus, hypertension, hyperlipidemia, here today for follow-up. She has been taking her medications as directed, tries to follow recommended diet but unable to do any exercise. Currently followed by Dr. Gregorio for her chronic kidney disease, with recent serum creatinine almost back to baseline.. Blood pressure has been stable and well controlled on present treatment. Has been advised to avoid NSAIDs, and maintain hemoglobin A1c to less than 7%, and maintain blood pressure less than 130/80 mm Hg continued on low-salt diet and Jardiance was added for cardiorenal protection. However patient was reluctant to start medication due to the cost. Has been feeling well with no complaints at present time, recent labs showed lipids and hemoglobin A1c within normal limits, except for elevated triglycerides. [facility] Medical History History of breast cancer History of gout Chronic kidney disease Lumbosacral radiculopathy due to degenerative joint disease of spine Thoracic disc herniation Cervical stenosis of spinal canal Osteoarthritis of multiple joints Peripheral venous insufficiency Type 2 diabetes mellitus with polyneuropathy Diabetes mellitus with kidney complication, without long-term current use of insulin Mixed dyslipidemia Osteopenia Surgical History History of right hip replacement H/O laparoscopy H/O section History of tonsillectomy H/O lumpectomy Family History Father Insulin dependent diabetes mellitus Mother HTN (hypertension) Stroke Brother HTN (hypertension) Brother No problems noted. Son No problems noted. Social History Housing: House Alcohol intake: never Patient Tobacco Use Status: Former Tobacco user e-Cigarette/Vaping Use: Never Used Second Hand Smoke Exposure: No Current occupational status: retired Cognitive needs: No Hearing needs: No Vision needs: No Questionnaire PHQ-9 Over the last 2 weeks, how often have you been bothered by any of the following problems? 1. Little interest or pleasure in doing things: not at all 2. Feeling down, depressed, or hopeless: not at all 3. Trouble falling or staying asleep, or sleeping too much: not at all 4. Feeling tired or having little energy: not at all 5. Poor appetite or overeating: not at all 6. Feeling bad about yourself - or that you are a failure or have let yourself or your family down: not at all 7. Trouble concentrating on things, such as reading the newspaper or watching television: not at all 8. Moving or speaking so slowly that other people could have noticed. Or the opposite - being so fidgety or restless that you have been moving around a lot more than usual: not at all 9. Thoughts that you would be better off or of hurting yourself in some way: not at all Total score: 0 Depression Screening Interpretation: Negative Depression Screening Done: Yes 74322 - PHQ-9 Billing: Yes Source: Developed by Drs. Angel Corrigan, Cathy Bernardo, Oliver Zamora and colleagues, with an educational janes from [employer]. Thrive Questionnaire Date Thrive assessed: 01/19/24 I am a: Patient What is your living situation today?: I have a steady place to live Within the past 12 months, did the food you bought not last and you didn't have the money to get more?: Never true Within the past 12 months, did you worry whether your food would run out before you got money to buy more?: Never true Do you have trouble paying for medicines?: No Do you have trouble getting transportation to medical appointments?: No Do you have trouble paying your heating and electricity bill?: No Do you have trouble taking care of your child, family member or friend?: No Do you have trouble with day-to-day activities such as bathing, preparing meals, shopping, managing finances, etc.?: No Are you currently unemployed and looking for a job?: No Are you interested in more education?: No THRIVE Score: 0 AUDIT C Alcohol Use Questionnaire (AUDIT-C) 1. How often do you have a drink containing alcohol?: Never Total Score: 0 JEREMY-7 AMB Questionnaire JEREMY-7 Date JEREMY - 7 assessed: 01/19/24 Feeling nervous, anxious, or on edge: 0 = Not at all Not being able to stop or control worryin = Not at all Worrying too much about different things: 0 = Not at all Trouble relaxin = Not at all Being so restless that it is hard to sit still: 0 = Not at all Becoming easily annoyed or irritable: 0 = Not at all Feeling afraid as if something awful might happen: 0 = Not at all Total JEREMY-7 score (0-4 normal; 5-9 mild; 10-14 moderate; 15-21 severe): 0 Source: Developed by Drs. Angel Corrigan, Cathy Bernardo, Oliver Zamora and colleagues, with an educational janes from [employer]. JEREMY-7 Assessment Billing JEREMY-7 Assessment Tool: JEREMY-7 Assessment 48856 Review of Systems Const Denies daytime sleepiness, Denies fatigue, Denies headache(s) and Denies weakness Eyes Denies change in vision ENT Denies dizziness, Denies headache(s), Denies nasal congestion and Denies sore throat Card Denies lightheadedness, Denies palpitations and Denies dyspnea Resp Denies chest congestion, Denies cough, Denies dyspnea and Denies wheezing GI Denies abdominal pain, Denies melena, Denies bloating, Denies hematochezia and Denies heartburn Denies urinary frequency, Denies dysuria and Denies urinary urgency Musc Denies joint swelling and Reports stiffness Neuro Denies dizziness, Denies headache(s) and Denies weakness Psych Reports no additional complaints Endo Denies fatigue, Denies polydipsia, Denies polyuria and Denies palpitations Destin/Lymph Denies easy bruising Aller/Immun Denies seasonal rhinorrhea and Denies wheezing Physical exam (Primary Care) Tobacco/Smoking Status: Tobacco use Status Tobacco use date assessed 01/19/24 01/19/24 11:28 Patient Tobacco Use Status Former Tobacco user 01/19/24 11:28 e-Cigarette/Vaping Use Never Used 01/19/24 11:28 PHQ-9: PHQ-9 Score PHQ-9: Total score 0 01/19/24 11:47 Depression Screening Interpretation: Negative Thrive Assessment: Date of Thrive Assessment Date Thrive assessed 01/19/24 01/19/24 11:28 Telehealth Telehealth Telehealth Platform: [facility] Location of provider rendering services: practice address Location of patient: address on file Patient Identification confirmed using: Name, : Yes Telehealth method: video Patient verbally consented to treatment: Yes Patient verbally consented to billing insurance company: Yes Patient informed of any privacy concerns related to visit: Yes Minutes spent on Phone/Video with Pt.: 15 Results Reviewed Results Reviewed: Laboratory Tests 01/15/24 01/15/24 09:52 09:57 Estimat Average Glucose 117 Hemoglobin A1c % 5.7 Uric Acid 6.5 H AST 22 ALT 23 Name: Ashley Hernandez Age/Sex: 73/F : 1950 Unit#: [id number] Attend Dr: Glenn Gregorio MD Re12/06/23 Status: DEP REF Location: [facility] Disch: SPEC : [id number] MANOHAR: 12/06/23-1201 STATUS: COMP REQ : [id number] RECD: 12/06/23-[address]: Glenn Gregorio MD COMP: 12/06/23-1445 ENTERED: 12/06/23-[address]: Savannah Mendiola MD ORDERED: CMP Test Result Flag Reference Sodium 142 135-145 mmol/L Potassium 4.5 3.3-5.1 mmol/L CL 111 H 96-108 mmol/L CO2 22 22-29 mmol/L Gap 14 12-20 BUN 27 H 9-16 mg/dL Creat 1.15 0.5-1.4 mg/dL EGFR 46 NOTE: For -Fij[place] individuals, multiply the result by 1.210. Chronic Kidney Disease: Estimated GFR < 60 mL/min/1.73m2 Severe Kidney Disease: Estimated GFR < 15 mL/min/1.73m2 Glucose, Random 114 60-115 mg/dL CA 9.3 8.4-10.2 mg/dL Total Bili 0.4 0.0-1.0 mg/dL AST (GOT) 19 5-31 U/L ALT (GPT) 23 0-31 U/L Protein, Total 6.2 L 6.5-8.0 g/dL Alb 3.9 3.5-5.0 g/dL Alk Phos 80 39-117 U/L Name: Ashley Hernandez Age/Sex: 73/F : 1950 Unit#: [id number] Attend Dr: Savannah Mendiola MD Re01/15/24 Status: DEP REF Location: [facility] Disch: SPEC : [id number] MANOHAR: 01/15/24 STATUS: COMP REQ : [id number] RECD: 01/15/[address]: Savannah Mendiola MD COMP: 01/15/24151 ENTERED: 01/15/[address]: ORDERED: Uric, AST, ALT, Lipid Panel Test Result Flag Reference Uric Acid 6.5 H 2.4-5.7 mg/dL AST (GOT) 22 5-31 U/L ALT (GPT) 23 0-31 U/L Triglyceride 206 H <150 mg/dL Desirable Triglyceride: less than 150 mg/dL Borderline High Triglyceride 150-199 mg/dL High Triglyceride: 200-499 mg/dL Very High Triglyceride: greater than or equal to 5OO mg/dL Cholesterol 147 <200 mg/dL Desirable Cholesterol: less than 200 mg/dL Borderline High Cholesterol: 200-239 mg/dL High Cholesterol: greater than 239 mg/dL LDL Calculated 61 <100 mg/dL Desirable LDL: less than 100 mg/dL Near Optimal/Above Optimal LDL: 110-129 mg/dL Borderline High LDL: 130-159 mg/dL High LDL: 160-189 mg/dL Very High LDL: greater than or equal to 190 mg/dL HDL 45 >40 mg/dL Desirable HDL: greater than 40 mg/dL Note: This HDL assay may give artificially low results in patients with liver disease. Assessment and Plan Assessment & Plan (1) Mixed dyslipidemia: Code(s): E78.2 - Mixed hyperlipidemia Plan: Continue pravastatin 20 mg at bedtime, [place] 3 fatty acid supplements (2) Type 2 diabetes mellitus with polyneuropathy: Code(s): E11.42 - Type 2 diabetes mellitus with diabetic polyneuropathy Plan: Well controlled diabetes mellitus , with latest hemoglobin A1c at 5.7%. Continued on metformin a 1000 mg twice a day. Up-to-date with her diabetes retinopathy screening and sees Podiatry once a year Orders: Orders Aspartate Amino Transferase 06/02/24 E11.42 - Type 2 diabetes mellitus with diabetic polyneuropathy, E78.2 - Mixed hyperlipidemia Hemoglobin A1c 06/02/24 E11.42 - Type 2 diabetes mellitus with diabetic polyneuropathy, E78.2 - Mixed hyperlipidemia Alanine Aminotransferase 06/02/24 E11.42 - Type 2 diabetes mellitus with diabetic polyneuropathy, E78.2 - Mixed hyperlipidemia Lipid Panel 06/02/24 E11.42 - Type 2 diabetes mellitus with diabetic polyneuropathy, E78.2 - Mixed hyperlipidemia Coding Level of Care Code Tele Est Pt Level 4 (59726) Complex EM visit Add On G2211 Diagnoses Mixed dyslipidemia E78.2 Type 2 diabetes mellitus with polyneuropathy E11.42 Additional Codes JEREMY-7 Assessment Billing - JEREMY-7 Assessment Tool: JEREMY-7 Assessment 38552 ([id number])
== END 2024-01-19 12:47 | disposition home or self-care (01) ==
LOC: HO.HMGC 11:29
PROVIDERS: PCP Internal Medicine; Visit Provider Internal Medicine
DX: E78.2 Mixed hyperlipidemia (principal); E11.42 Type 2 diabetes mellitus with diabetic polyneuropathy
CPT/HCPCS: 99214; G2211

== ENCOUNTER 2024-06-21 09:40 | Outpatient (REF) | payer MEDICARE, SELFPAY ==
--- OUTSIDE RECORDS SUMMARY | 2024-06-21 09:44 | XMS_ITS | Patient Health Record ---
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 Name Role Phone Maury HERNANDEZ, Savannah Sanchez Primary Care Provider Un available Humza Restrepo Unavailable [phone] Allergies Allergen (clinical drug ingredient) Drug/Non Drug Allergy documented on EMR Reaction Allergy Type Onset Date Status Adhesive Unknown Allergy Active Reason For Referral No Information Medications Medication SIG (Take, Route, Frequency, Duration) Notes Start Date End Date Status Aspir-81 Active Letrozole 2.5 MG Orally Once a day Not-Taking Lantus SoloStar 10 units QD Not-Taking Extra Depth Orthopedic Shoes (1 Pair) with Customized Heat Molded Multidensity Innersoles (3 Pair) as directed Dx: NIDDM/Polyneuropathy (E11.42), Hammertoe Foot Deformity (M20.41,M20.42), Preulcerative Skin Lesion(s) (L85.1 10/20/2023 Active Gabapentin 300 MG 1 capsule Orally BID Active Fish Oil Active Advil Unknown Lisinopril 30 MG Orally Once a day Active hydroCHLOROthiazide 12.5 MG 1 capsule Or ally Once a day Active Metoprolol Succinate 25 MG Orally Active metFORMIN HCl 1000 MG 1 tablet with meal s Orally Twice a day Active Pravastatin Sodium 20 MG Orally Once a day Active Multivitamin Active Allopurinol 300 MG Orally Once a day Active Tylenol Active Vitamin D3 Active Immunizations Vaccine Route Administration Date Status Comme nts COVID-19 Pfizer BioNTech Vaccine Unknown 04/12/2022 Administered 1st 10/14/20 2nd 11/04/20 3rd 05/15/21 Influenza Unknown 03/15/2017 Administered Influenza Unknown 05/18/2018 Administered Influenza Unknown 04/12/2022 Administered Pneumococcal Unknown 05/13/2016 Administered Social History Tobacco Use: Social History Observation Description Date Details (start date - stop date) Former Smoker NA - NA Tobacco Use/Smoking Question Answer Notes Are you a: former smoker Additional Findings: Tobacco Non-User Current no n-smoker Alcohol Screen Question Answer Notes Did you have a drink containing alcohol in the p ast year? No Points 0 Interpretation Negative Tobacco use other than smoking: Question Answer Notes Are you an other tobacco user? No Problems Problem Type SNOMED Code ICD Code Onset Dates Problem Status W/U Status Risk Notes Problem Acquired hammer toe of right foot (3631012829249734 ) Other hammer toe(s) (acquired), right foot (M20.41) Active confirmed Problem Acquired hammer toe of left foot (8532880799617383 ) Other hammer toe(s) (acquired), left foot (M20.42) Active confirmed Problem Polyneuropathy due to type 2 diabetes mellitus (368377421) Type 2 diabetes mellitus with diabetic polyneuropathy (E11.42) Active confirmed Vital Signs Height 5 ft 5 in in 10/20/2023 Weight 256 lbs 10/20/2023 BMI 42.60 kg/m2 10/20/2023 Procedures Procedure Date Ordered Date Performed Result Body Sit e 60846-URUQBRR NAIL, 6 OR MORE 10/20/2023 N/A 06750-GUJE SKIN LESIONS, OVER 4 10/20/2023 N/A Encounters Encounter Location Date Provider Diagnosis [facility] [place] [address] [place] [address] 10/20/2023 Humza Restrepo Type 2 diabetes mellitus with diabetic polyneuropathy E11.42 ; Tinea unguium B35.1 ; Other hammer toe(s) (acquired), right foot M20.41 and Other hammer toe(s) (acquired), left foot M20.42 Assessments Encounter Date Diagnosis (ICD Code) Assessment Notes Treatment Notes Treatment Clinical Notes Section Notes 10/20/2023 Type 2 diabetes mellitus with diabetic polyneuropathy (ICD-10 - E11.42) 10/20/2023 Tinea unguium (ICD-10 - B35.1) 10/20/2023 Other hammer toe(s) (acquired), right foot (ICD-10 - M20.41) Patient Educated with: DIABETIC FOOT CARE INSTRUCTIONS. pdf (DIABETIC FOOT CARE INSTRUCTIONS. pdf) 10/20/2023 Other hammer toe(s) (acquired), left foot (ICD-10 - M20.42) Plan Of Treatment Pending Test Test Name Order Date 25149-CCOXSAJ NAIL, 6 OR MORE 05/18/2018 88675-QLXJJNB NAIL, 6 OR MORE 06/14/2019 62978-MVPIZTQ NAIL, 6 OR MORE 05/12/2017 70411-SIIMQKT NAIL, 6 OR MORE 06/16/2020 08329-ZYBPLHK NAIL, 6 OR MORE 06/18/2021 65302-EPQOUIB NAIL, 6 OR MORE 10/18/2022 45220-HCPQMWY NAIL, 6 OR MORE 10/20/2023 01706-Jxsmetaq Plate 10/18/2022 96103-Kkeihdzh Plate 06/18/2021 90281-Pdaplgjr Plate 06/16/2020 67429-Pwjyfpop Plate 06/14/2019 98098-Kkfnopcb Plate Each Additional 12/2018 54354-Ztmtztew Plate Each Additional 02/2020 76467-XSNV SKIN LESIONS, OVER 4 06/16/20 20 00819-MRCW SKIN LESIONS, OVER 4 06/14/20 19 76267-VJUT SKIN LESIONS, OVER 4 06/18/20 21 01954-HQSZ SKIN LESIONS, OVER 4 10/19/19 23 35351-BRRB SKIN LESIONS, OVER 4 10/20/19 24 72698-LPFN SKIN LESIONS, 2 TO 4 05/18/20 18 18596-QCSG SKIN LESIONS, 2 TO 4 05/12/20 17 Next Appt Details Provider Name:Humza Restrepo , 10/18/2024 11:00:00 AM, [address] [place], [address], Insurance Providers Payer Name Payer Address Payer Phone Subscriber Number Group Number Insured Name Patient Relationship to Insured Coverage Start Date Coverage End Date [employer] [place] [employer] [address] [place] [address] [id number] Ashley Mendieta Self - patient is the insured Medical (General) History Medical History History ICD Code Arthritis Back,Hip,and Knee pain Cholesterol Cancer Diabetic Gout Measles Mumps Chicken pox Hypertension Neuropathy Osteoporosis Surgical History Surgery Date(Month/Year) tonsillectomy section 1971 laproscopy 1975 neck surgery 2000 back surgery 2007 ,2013 right hip replacement 2013 breast surgery TYRA 2014
--- OUTSIDE RECORDS SUMMARY | 2024-06-21 09:44 | XMS_ITS ---
Author Organization [facility] Address [address] [place] [address] Care Team Providers Care Wafer Fab Technician Name Role Phone Maury HERNANDEZ, Savannah Sanchez Primary Care Provider Un available Humza Restrepo Unavailable [phone] Allergies Allergen (clinical drug ingredient) Drug/Non Drug Allergy documented on EMR Reaction Allergy Type Onset Date Status Adhesive Unknown Allergy Active REASON FOR VISIT At Risk Footcare, Toe Irritation Medications Medication SIG (Take, Route, Frequency, Duration) Notes Start Date End Date Status Tylenol Active Letrozole 2.5 MG Orally Once a day Not-Taking Lantus SoloStar 10 units QD Not-Taking Extra Depth Orthopedic Shoes (1 Pair) with Customized Heat Molded Multidensity Innersoles (3 Pair) as directed Dx: NIDDM/Polyneuropathy (E11.42), Hammertoe Foot Deformity (M20.41,M20.42), Preulcerative Skin Lesion(s) (L85.1 10/20/2023 Active Advil Unknown Vitamin D3 Active Metoprolol Succinate 25 MG Orally Active metFORMIN HCl 1000 MG 1 tablet with meal s Orally Twice a day Active Pravastatin Sodium 20 MG Orally Once a day Active Multivitamin Active Aspir-81 Active Gabapentin 300 MG 1 capsule Orally BID Active Fish Oil Active Lisinopril 30 MG Orally Once a day Active hydroCHLOROthiazide 12.5 MG 1 capsule Or ally Once a day Active Allopurinol 300 MG Orally Once a day Active Social History Tobacco Use: Social History Observation [...] Are you an other tobacco user? No Vital Signs Height 5 ft 5 in in 10/20/2023 Weight 256 lbs 10/20/2023 BMI 42.60 kg/m2 10/20/2023 Procedures Procedure Date Ordered Date Performed Result Body Sit e 09656-SUGRNHM NAIL, 6 OR MORE 10/20/2023 N/A 93562-ERGE SKIN LESIONS, OVER 4 10/20/2023 N/A Encounters Encounter Location Date Provider Diagnosis [facility] [address] [place] [address] 10/20/2023 Humza Restrepo Type 2 diabetes mellitus [...] foot (ICD-10 - M20.42) Plan Of Treatment Medication Medication Name Sig Start Date Stop Date Notes Extra Depth Orthopedic Shoes (1 Pair) with Customized Heat Molded Multidensity Innersoles (3 Pair) as directed Dx: NIDDM/Polyneuropathy (E11.42), Hammertoe Foot Deformity (M20.41,M20.42), Preulcerative Skin Lesion(s) (L85.1 10/20/2023 Treatment Notes Assessment Notes Other hammer toe(s) (acquired), right fo ot Patient Educated with: DIABETIC FOOT CARE INSTRUCTIONS.pdf (DIABETIC FOOT CARE INSTRUCTIONS.pdf) Pending Test Test Name Order Date [id number] NAIL, 6 OR MORE 10/20/2023 99874-TAYZ SKIN LESIONS, OVER 4 10/20/19 24 Next Appt Details Follow Up: 1 Year, Reason: Provider Name:Humza Amanda Restrepo , 10/18/2024 11:00:00 AM, [address] [place], [address], Procedure Notes * Category Sub-Category Detail Notes Debride Nail 6-10 Nail debridement Nail debridem ent performed extensively to reduce/remove overall nail length, girth, thickness, subungual debris, and necrotic tissue, by manual and electrical means through the use of a nail nipper and/or dremel, to more viable healthy nail plate or bed tissue 1-5. Silver nitrate used for any petechial bleeding as necessary. Patient chooses, no pharmaceutical tx (03799) Keratoma Treatment Parring or Cutting o f Benign Hyperkeratotic Lesion(s) 68465 ( >4 Lesions) - The Benign hyperkeratotic lesions, as described above were pared, and/or cut utilizing a sterile #15 blade, tissue nippers, and/or dremel Progress Notes * Chio CAMPOB: 0 (73 yo F)Acc No.[id number]:10/20/2023 Progress Note Patient:?Mary Ashley Provider:?Humza Restrepo DPM :1950???Age:73 Y???Sex:Female D ate:10/20/2023 Address:[address] [place], [place] [id number] Pcp:Adonis Shelton Subjective: * Chief Complaints: * ???At Risk FootcareToe Irrit ation * HPI: ???At Risk footcare:?Pt States Last PCP Visit:?Date?07/11/2023 ???Toe pain:?Location:?B/L feet.?Duration:?several years.?Course:?worse.?Aggrevated by:?shoes, any pressure.?Treatments:?change in shoes.? * ROS:?General/Constitutional:?Nausea?denies.?Vomiting?denies.?Hunger Thirst?denies.?Chills?denies.?Fatigue?denies, denies, denies, denies, denies, denies.?Fever?denies, denies, denies, denies, denies, denies.?Night Sweats?denies, denies, denies, denies, denies, denies.?Unexplained weight loss?denies, denies, denies, denies, denies, denies.?Unexplained weight gain?denies, denies, denies, denies, denies, denies.?HEENTM:?Dentures?denies, denies, denies, denies, denies, denies.?Dizziness?denies, denies, denies, denies, denies, denies.?Glasses/contacts?denies, denies, denies, denies, denies, denies.?Retinopathy?denies, denies, denies, denies, denies, denies.?Blurred/double vision?denies, denies, denies, denies, denies, denies.?TMJ?denies, denies, denies, denies, denies, denies.?Discharge/drainage?denies, denies, denies, denies, denies, denies.?Implants?denies, denies, denies, denies, denies, denies.?Sore throat?denies, denies, denies, denies, denies, denies.?Dental implants?denies, denies, denies, denies, denies, denies.?Hard of hearing ?denies, denies, denies, denies, denies, denies.?Difficulty chewing/swallowing/speaking?denies, denies, denies, denies, denies, denies.?Nose bleeds?denies, denies, denies, denies, denies, denies.?Sore mouth?denies, denies, denies, denies, denies, denies.?Respiratory:?On Oxygen?denies, denies, denies, denies, denies, denies.?Pneumonia/pleurisy?denies, denies, denies, denies, denies, denies.?Bronchitis?denies, denies, denies, denies, denies, denies.?Emphysema?denies, denies, denies, denies, denies, denies.?Coughing?denies, denies, denies, denies, denies, denies.?Cough blood?denies, denies, denies, denies, denies, denies.?Shortness of breath?denies, denies, denies, denies, denies, denies.?Wheezing?denies, denies, denies, denies, denies, denies.?Cardiovascular:?Pacemaker?denies, denies, denies, denies, denies, denies.?MVP?denies, denies, denies, denies, denies, denies.?WPW?denies, denies, denies, denies, denies, denies.?CHF?denies, denies, denies, denies, denies, denies.?Heart attack?denies, denies, denies, denies, denies, denies.?Septal defect?denies, denies, denies, denies, denies, denies.?Rapid beat?denies, denies, denies, denies, denies, denies. Chest pain ?denies, denies, denies, denies, denies, denies.?Atrial Fib.?denies, denies, denies, denies, denies, denies.?Murmur/Palpitations?denies, denies, denies, denies, denies, denies.?Gastrointestinal:?Hemorrhoids?denies, denies, denies, denies, denies, denies.?Stomach/Abdominal pain?denies, denies, denies, denies, denies, denies.?Dark blood stool?denies, denies, denies, denies, denies, denies.?Irritable bowel ?denies, denies, denies, denies, denies, denies.?Constipation?denies, denies, denies, denies, denies, denies.?Diarrhea?denies, denies, denies, denies, denies, denies.?Hematology:?Swelling?admits.?Clots?denies, denies, denies, denies, denies, denies.?Varicose Veins?denies, denies, denies, denies, denies, denies.?Bruising?denies, denies, denies, denies, denies, denies.?Bleeding problem?denies, denies, denies, denies, denies, denies.?Genitourinary:?Blood urine?denies, denies, denies, denies, denies, denies.?Frequent/Painfu/urination/bladder control?denies, denies, denies, denies, denies, denies.?Kidney stones?denies, denies, denies, denies, denies, denies.?Infection (UTI)?denies, denies, denies, denies, denies, denies.?Nephropathy?denies, denies, denies, denies, denies, denies.?sex trans dis (STD)?denies, denies, denies, denies, denies, denies.?Prostate?denies, denies, denies, denies, denies, denies.?Musculoskeletal:?Hammertoes?admits.?Bunions?denies, denies, denies, denies, denies, denies.?Back Pain?admits.?Muscle Cramps/ Resting?admits.?Muscle cramps / walking?denies, denies, denies, denies, denies, denies.?Generalized aches and pains?denies, denies, denies, denies, denies, denies.?Weakness?admits.?Integ.:?Swift?denies, denies, denies, denies, denies, denies.?Scars?admits.?Corns/calluses?admits.?Ingrown nails?admits.?Painful nails?denies, denies, denies, denies, denies, denies.?Open Sores?denies, denies, denies, denies, denies, denies.?Rashes?denies, denies, denies, denies, denies, denies.?Neurologic:?Difficulty sleeping?denies, denies, denies, denies, denies, denies.?Brain disorder?denies, denies, denies, denies, denies, denies.?Numbness?admits.?Balance trouble?admits.?Confusion?denies, denies, denies, denies, denies, denies.?Fainting/blackouts?denies, denies, denies, denies, denies, denies.?Tingling?, admits, bilateral lower extremities, , admits, bilateral lower extremities.?Tremors?denies, denies, denies, denies, denies, denies.? * Medical History:? * Surgical History:?tonsillect efren section 1971laproscopy 1975neck surgery 2001back surgery 2008 ,2014right hip replacement 2014breast surgery TYRA 2014 * Hospitalization/Major Diagno stic Procedure:?Denies Past Hospitalization * Family History:?Mother: dece ased.?Father: , foot problems, diagnosed with Diabetic - NIDDM, Unspecified essential hypertension.?Siblings: arthritis, diagnosed with Diabetic - NIDDM, Unspecified essential hypertension.? * Social History:?Tobacco Use:?Tobacco Use/Smoking?Are you a:?former smoker ?Additional Findings: Tobacco Non-User?Current non-smoker ?Tobacco use other than smoking?Are you an other tobacco user??No ???Drugs/Alcohol:?Drugs?Have you used drugs other than those for medical reasons in the past 12 months??No ?Alcohol Screen?Did you have a drink containing alcohol in the past year??No ?Points?0 ?Interpretation?Negative ???Miscellaneous:?Caffeine: yes, surendra milk, 1/2 can soda a day. ?Children: yes, 1. ?no Exercise. ?Marital status: . ?Occupation: disability. * Medications:?TakingTylenol A llopurinol 300 MG Tablet Orally Once a dayAspir-81 Fish Oil Gabapentin 300 MG Capsule 1 capsule Orally BIDhydroCHLOROthiazide 12.5 MG Capsule 1 capsule Orally Once a dayLisinopril 30 MG Tablet Orally Once a daymetFORMIN HCl 1000 MG Tablet 1 tablet with meals Orally Twice a dayMetoprolol Succinate 25 MG Capsule ER 24 Hour Sprinkle Orally Multivitamin Pravastatin Sodium 20 MG Tablet Orally Once a dayVitamin D3 Taking Tylenol Taking Allopurinol 300 MG Tablet Orally Once a dayTaking Aspir-81 Taking Fish Oil Taking Gabapentin 300 MG Capsule 1 capsule Orally BIDTaking hydroCHLOROthiazide 12.5 MG Capsule 1 capsule Orally Once a dayTaking Lisinopril 30 MG Tablet Orally Once a dayTaking metFORMIN HCl 1000 MG Tablet 1 tablet with meals Orally Twice a dayTaking Metoprolol Succinate 25 MG Capsule ER 24 Hour Sprinkle Orally Taking Multivitamin Taking Pravastatin Sodium 20 MG Tablet Orally Once a dayTaking Vitamin D3 Not-Taking/PRNLantus SoloStar 10 units QDLetrozole 2.5 MG Tablet Orally Once a dayNot-Taking/PRN Lantus SoloStar 10 units QDNot-Taking/PRN Letrozole 2.5 MG Tablet Orally Once a dayUnknownAdvil Medication List reviewed and reconciled with the patientUnknown Advil Medication List reviewed and reconciled with the patient * Allergies:?Adhesiveyes[Aller gies Verified] Objective: * Vitals:?Ht: 5 ft 5 in, Wt:25 6, BMI:42.60, Shoe size:9.5, BS:130. * ???Past Orders: ???Lab:HEMOGLOBIN A1C (GLYCO HEMOGLOBIN) (Order Date - 11/08/2021) (Collection Date - 11/08/2021) ? Value Reference Range ?HEMOGLOBIN A1C % (HH) 6.0 * Examination: ???Neurological: ?SENSORY:?Neurological exam demonstrates, reduced light touch sensation, reduced sharp/dull pin prick discrimination, B/L, 5.07 monofilament test performed at plantar aspects of 5 varied sites per foot shows sensation, reduced , B/L, Pt STILL relates, pins and needles sensation, paresthesia, shooting sensation, tingling, at rest, B/L.?Nails: ?NAILS are:?Elongated, overgrown, dystrophic, lytic, greater than 3mm thick, discolored and friable with crumbly malodorous subungual debris, 1-5 B/L.?Dermatologic: ?SKIN FINDINGS:?Skin exam reveals Keratotic lesion(s) located at, Medial, IPJ, TA, Medial, IPJ, T5, SUB MTH (s), 1, B/L , Heel(s), B/L .?Orthopedic: ?MUSCLE STRENGTH:?5/5 all groups in a symmetrical fashion , B/L.?GAIT ABNORMALITY:? appropulsive, walker-assisted.?FOOT MORPHOLOGY:? Pes Planus structure, No Charcot collapse/destruction noted at MTJ.?DIGITAL DEFORMITIES:?Digital contracture, PIPJ, 2-5 B/L, incompl-reducible to push-up test, no over, nor underlapping,?with evidence of shoe producing skin irritation.?FOOTWEAR:?worn, OT were inspected and noted to be severely worn , in poor condition not giving proper support at the present time , shoe gear properties exacerbate patient's foot/toe deformity.?Vascular: ?DP PULSES:?0/4, B/L.?PT PULSES:?0/4, B/L.?CAPILLARY FILL TIME:?delayed, all digits, B/L.?SKIN TEMPERTURE GRADIENT OF THE LOWER EXTERMITIES:?decreased, cool to cool, proximal to distal, B/L.?HAIR GROWTH/TEXTURE/ELASTICITY/TURGOR:?decreased, B/L.?PIGMENTATION:? rubrous, B/L.?EDEMA:? 3/4, pitting, without aching pain, B/L, Leg(s), Ankle(s), Feet.?CLAUDICATION:?denies, B/L.?REST PAIN:?denies, B/L.?JUVENTINO'S SIGN:?absent, B/L.?PALPABLE CORDS:?absent, B/L.?Ophthalmology Referral: ?DIABETES EYE EXAM?General Examination: ?GENERAL APPEARANCE:?Reveals a pleasant, alert, well nourished, well- developed, well hydrated individual, who demonstrates proper attention to hygiene/body habitus, and is in no acute distress, Pt serves as own historian for office visit today , Pt accompanied by , , and/who is physically present in exam room at time of visit.?ORIENTED:?person, place, and time.?FOOT EXAM:?Footwear Evaluation? Assessment: * Assessment: 1.?Type 2 diabetes mellitus with diabetic polyneuropathy - E11.42 (Primary)?2.?Tinea unguium - B35.1?3.?Other hammer toe(s) (acquired), right foot - M20.41, Chronic problem, Worse (4),Rx Management (4)?4.?Other hammer toe(s) (acquired), left foot - M20.42, Chronic problem, Worse (4),Rx Management (4)? Plan: * Treatment: 2.?Other hammer toe(s) (acqu ired), right foot? Start Extra Depth Orthopedic Shoes (1 Pair) with Customized Heat Molded Multidensity Innersoles (3 Pair), as directed, Dx: NIDDM/Polyneuropathy (E11.42), Hammertoe Foot Deformity (M20.41,M20.42), Preulcerative Skin Lesion(s) (L85.1, 1, Refills 0.?? Notes: Patient Educated with: DIABETIC FOOT CARE INSTRUCTIONS.pdf (DIABETIC FOOT CARE INSTRUCTIONS.pdf)?? * Procedures:?Debride Nail 6-10:?Nail debridement?Nail debridement performed extensively to reduce/remove overall nail length, girth, thickness, subungual debris, and necrotic tissue, by manual and electrical means through the use of a nail nipper and/or dremel, to more viable healthy nail plate or bed tissue 1-5. Silver nitrate used for any petechial bleeding as necessary. Patient chooses, no pharmaceutical tx (25752).?Keratoma Treatment:?Parring or Cutting of Benign Hyperkeratotic Lesion(s)?60688 ( >4 Lesions) - The Benign hyperkeratotic lesions, as described above were pared, and/or cut utilizing a sterile #15 blade, tissue nippers, and/or dremel.? * Procedure Codes:?99841 DEBRI DE NAIL, 6 OR MORE, Modifiers: XS 59925 TRIM SKIN LESIONS, OVER 4, Modifiers: XS * Preventive Medicine:? ??Counseling:?Discussion:?-14: Office or other outpatient visit for the evaluation and management of an established patient, which required a medically appropriate history and/or examination and MODERATE level of DECISION MAKING for: 1 OR MORE CHRONIC PROBLEM(S) THATS WORSENING, 2 STABLE CHRONIC PROBLEMS, A NEWLY DIAGNOSED PROBLEM WITH UNCERTAIN PROGNOSIS, AN ACUTE COMPLICATED INJURY WITH MULTIPLE TREATMENT OPTIONS, OR AN ACUTE PROBLEM WITH ACCOMPANYING SYSTEMIC SYMPTOMS, THAT POSE(S) A MODERATE RISK OF MORBIDITY. THIS CONDITION MAY ALSO INCLUDE RX DRUG MANAGEMENT, OR A DECISON FOR MINOR SURGERY. The visit on the day of the encounter encompassed interpreting the data and educating the patient as to the nature of their condition, treatment options available according to their individual PMH, meds, allergies, and overall health/living conditions, as well as any potential risks or complications that may occur from a failure to adhere to, and participate in, the recommended course of therapy. The discussion included a complete verbal, and/or written explanation of the examination results, any x-rays taken, the proposed diagnosis, and outline of the treatment plan. A schedule for future care needs was also explained. The patient verbalized an understanding of the instructions at this time and agreed to be an active participant in their treatment. If the patient should think of any questions or concerns after the visit, I have encouraged the patient to call the office.?Digital Surgery:?Digital surgery was discussed with the patient, We elected to try conservative treatment at the present time, due to the patients medical history and increased asssociated post-operative risks.?Digital Treatment:?HT- I explained to the patient the possible etiologies of Hammertoes, including genetics/foot type/shoegear/activity level/exercise routine and the risks/benefits of all the different treatment options for their pain including: No treatment at all, Rest, Ice, New/supportive/wider/deeper Shoegear, Digital Padding/Strapping/Taping/Bracing/Gel protective sleeves, Foot/Ankle AFO Bracing, Stretching exercises, Deep Tissue Massage, Arch support/shoe inserts with splay metatarsal padding, and Custom orthoses. I insisted that any digital devices be removed daily and not worn overnight for safety. The patient is to carefully examine the toes daily for any skin irritation while using any splinting or padding device. The advantages and disadvantages of each option were discussed and the patients questions re: shoegear, padding, custom vs prefabricated inserts, activity level, and consistency in home treatment regimens for optimal success were answered to their verbally confirmed satisfaction.?Shoe Gear Counseling:?SHOE Rx - The patient was counseled in great detail on their muscoloskeletal foot and toe deformities which coincided with the dermatological presentations visualized on exam. We discussed how their deformities put the integrity of their feet at risk for potential pedal complications which makes the accomidative diabetic shoes and cutomizable inserts medically necessary. We discussed the different shoe and insert treatment types and options, as well as the important advantages for adhering to regularly wearing these accomidative devices daily. The patient was made aware of the fact that a failure to abide by these recommedations may be deleterious to their foot health as they are able to prevent many pedal complications such as skin irritation, skin ulceration, infection, and even loss of toe/foot/leg/or life. Time was also spent with the patient dispensing and discussing proper diabetic footcare techniques including daily skin moisturization, daily foot inspection for any interruption in skin integrity including open lesions, or sign of infection such as redness/malodor/drainage/swelling. Also discussed and recommended were procedures regarding daily shoe inspection for the presence of internal foreign bodies as well as any visualized irregular shoe or insert wear. Patient questions re: shoes, inserts, and self foot inspections were answered to their satisfaction as the patient verbally confirmed a full understanding of the above information. A Rx for Extra Depth Orthopedic Shoes with 3 pair of custom heat-molded inserts was dispensed.? ??Screening/Special Tests:?Fall Risk?Assessment:?Performed ?Plan of Care:?Documented ?Screening:?Two or more falls with injury in the past year ?FALLS: Screening for Future Fall Risk?Have you had two or more falls in the past year??Yes ?Have you had any falls with injury in the past year??Yes * Follow Up:?1 Year * Images: * Sign off status: Completed true * Provider:?Humza Restrepo DPM Date:?2023 Generated for Dania villavicencio/Nas/Ivelisse on:?06/21/2024 09:43 AM EST History and Physical Notes * HPI (History of Present Illness) Category Sub-Category Detail Notes Category Not es Toe pain Location: B/L feet Duration: several years Course: worse Aggravated by: shoes, any pressure Treatments: change in shoes At Risk footcare Pt States Last PCP Visit: Date: 4 Examination Category Sub-Category Detail Notes Category Not es Neurological SENSORY: Neurological exa m demonstrates, reduced light touch sensation, reduced sharp/dull pin prick discrimination, B/L, 5.07 monofilament test performed at plantar aspects of 5 varied sites per foot shows sensation, reduced , B/L, Pt STILL relates, pins and needles sensation, paresthesia, shooting sensation, tingling, at rest, B/L Dermatologic SKIN FINDINGS: Skin exam reveal s Keratotic lesion(s) located at, Medial, IPJ, TA, Medial, IPJ, T5, SUB MTH (s), 1, B/L , Heel(s), B/L Orthopedic GAIT ABNORMALITY: appropulsive, walker-as sisted FOOT MORPHOLOGY: Pes Planus structure , No Charcot collapse/destruction noted at MTJ FOOTWEAR: worn, OT were inspec richar and noted to be severely worn , in poor condition not giving proper support at the present time , shoe gear properties exacerbate patient's foot/toe deformity DIGITAL DEFORMITIES: Digital contracture , PIPJ, 2-5 B/L, incompl-reducible to push-up test, no over, nor underlapping, with evidence of shoe producing skin irritation MUSCLE STRENGTH: 5/5 all groups in a symmetrical fashion , B/L General Examination GENERAL APPEARANCE: Reveals a pleasant, alert, well nourished, well-developed, well hydrated individual, who demonstrates proper attention to hygiene/body habitus, and is in no acute distress, Pt serves as own historian for office visit today , Pt accompanied by , , and/who is physically present in exam room at time of visit FOOT EXAM: Lower Extremity Neurological Exa m performed:: Yes ORIENTED: person, place, and t juan Footwear Evaluation Footwear Evaluation performe d:: Yes Ophthalmology Referral DIABETES EYE EXAM Diabetic Retinopa thy Screening:: Yes Findings of Diabetic Eye Exam:: no retin opathy Vascular DP PULSES(B): 0/4, B/L PT PULSES(B): 0/4, B/L CAPILLARY FILL TIME: delayed, all digits , B/L TEMPERTURE GRADIENT(C): decreased, cool to cool, proximal to distal, B/L TROPHIC CONDITION-TEXTURE/ELASTICITY/TURGOR/HAIR GROWTH(B): decreased, B/L EDEMA(C): 3/4, pitting, withou t aching pain, B/L, Leg(s), Ankle(s), Feet CLAUDICATION(C): denies, B/L REST PAIN: denies, B/L JUVENTINO'S SIGN: absent, B/L PALPABLE CORDS: absent, B/L PIGMENTATION: rubrous, B/L Nails NAILS are: Elongated, overg rown, dystrophic, lytic, greater than 3mm thick, discolored and friable with crumbly malodorous subungual debris, 1-5 B/L
[2024-06-21 14:03] LABS: Alanine Aminotransferase 22 U/L (0-31); Aspartate Amino Transferase 29 U/L (5-31); Cholesterol 146 mg/dL (<200); Estimated Average Glucose 120 mg/dL; HDL Cholesterol 44 mg/dL (>40); Hemoglobin A1C 173.3442 umol/L; Hemoglobin A1c % 5.8 % (<6.0); LDL Cholesterol Calculated 56 mg/dL (<100); Total Hemoglobin (HGBA1C) 4388.0191 umol/L; Triglycerides 230 mg/dL (<150)
== END 2024-06-21 09:41 | disposition home or self-care (01) ==
LOC: HO.HMGCLDS 09:40
PROVIDERS: PCP Internal Medicine; Visit Provider Internal Medicine
DX: E11.42 Type 2 diabetes mellitus with diabetic polyneuropathy (principal); E78.2 Mixed hyperlipidemia
CPT/HCPCS: 36415; 80061; 83036; 84450; 84460

== ENCOUNTER 2024-06-25 12:19 | Outpatient (AMB) | payer MEDICARE, SELFPAY ==
--- OUTSIDE RECORDS SUMMARY | 2024-06-25 12:20 | XMS_ITS ---
Author Organization [facility] Address [address] [facility] [place] [address] Care Team Providers Care Ambulance Mechanic Name Role Phone Maury HERNANDEZ, Savannah Sanchez Primary Care Provider Un available Humza Restrepo Unavailable [phone] Allergies Allergen (clinical drug ingredient) Drug/Non Drug [...] Ordered Date Performed Result Body Sit e 19073-SQXRXHL NAIL, 6 OR MORE 10/20/2023 N/A 54536-EEHC SKIN LESIONS, OVER 4 10/20/2023 N/A Encounters Encounter Location Date Provider Diagnosis [facility] [place] [address] [place] [address] 10/20/2023 Humza Restrepo Type 2 diabetes mellitus [...] INSTRUCTIONS.pdf) Pending Test Test Name Order Date 12000-TRRWKAF NAIL, 6 OR MORE 10/20/2023 47268-OCDT SKIN LESIONS, OVER 4 10/20/19 24 Next Appt Details Follow Up: 1 Year, Reason: Provider Name:Humza Amanda Restrepo , 10/18/2024 11:00:00 AM, [address] [place], [address], Procedure Notes * Category Sub-Category Detail Notes [...] as necessary. Patient chooses, no pharmaceutical tx (04474) Keratoma Treatment Parring or Cutting o f Benign Hyperkeratotic Lesion(s) 14052 ( >4 Lesions) - The Benign hyperkeratotic lesions, as described above were pared, and/or cut utilizing a sterile #15 blade, tissue nippers, and/or dremel Progress Notes * Chio CAMPOB: 0 (73 yo F)Acc No.[id number]:10/20/2023 Progress Note Patient:?Mary Ashley Provider:?Humza Restrepo DPM :1950???Age:73 Y???Sex:Female D ate:10/20/2023 Address:[address] [place], [place] [id number] Pcp:Adonis Shelton Subjective: * Chief Complaints: * [...] as necessary. Patient chooses, no pharmaceutical tx (56987).?Keratoma Treatment:?Parring or Cutting of Benign Hyperkeratotic Lesion(s)?58300 ( >4 Lesions) - The Benign hyperkeratotic lesions, as described above were pared, and/or cut utilizing a sterile #15 blade, tissue nippers, and/or dremel.? * Procedure Codes:?60681 DEBRI DE NAIL, 6 OR MORE, Modifiers: XS 11157 TRIM SKIN LESIONS, OVER 4, Modifiers: XS [...] Restrepo DPM Date:?2023 Generated for Dania villavicencio/Nas/Ivelisse on:?06/25/2024 12:20 PM EST History and Physical Notes * HPI [...]
--- OUTSIDE RECORDS SUMMARY | 2024-06-25 12:20 | XMS_ITS | Patient Health Record ---
Author Organization [facility] Address [address] [place] [address] Care Team Providers Care Repairer Helper Name Role Phone Maury HERNANDEZ, Savannah Sanchez Primary Care Provider Un available Humza Restrepo Unavailable [phone] Allergies Allergen (clinical drug ingredient) Drug/Non Drug [...] Problem Acquired hammer toe of right foot (7464569692715757 ) Other hammer toe(s) (acquired), right foot (M20.41) Active confirmed Problem Acquired hammer toe of left foot (4316063928143276 ) Other hammer toe(s) (acquired), left foot (M20.42) Active confirmed Problem Polyneuropathy due to type 2 diabetes mellitus (017797419) Type 2 diabetes mellitus with diabetic polyneuropathy (E11.42) Active confirmed Vital Signs Height 5 ft 5 in in 10/20/2023 Weight 256 lbs 10/20/2023 BMI 42.60 kg/m2 10/20/2023 Procedures Procedure Date Ordered Date Performed Result Body Sit e 72762-NPZRQMC NAIL, 6 OR MORE 10/20/2023 N/A 28326-WHFE SKIN LESIONS, OVER 4 10/20/2023 N/A Encounters Encounter Location Date Provider Diagnosis [facility] [address] [place] [address] 10/20/2023 Humza Restrepo Type 2 diabetes mellitus [...] Treatment Pending Test Test Name Order Date 09240-IESUJFV NAIL, 6 OR MORE 05/18/2018 22311-KBQBVAI NAIL, 6 OR MORE 06/14/2019 61993-FRLJQQU NAIL, 6 OR MORE 05/12/2017 47045-KGRRSLR NAIL, 6 OR MORE 06/16/2020 51324-ICKJHHB NAIL, 6 OR MORE 06/18/2021 32167-IWFMSLR NAIL, 6 OR MORE 10/18/2022 91050-ZEGAKIV NAIL, 6 OR MORE 10/20/2023 62992-Suhnkbaq Plate 10/18/2022 21421-Okjiynjq Plate 06/18/2021 36891-Rehqgbey Plate 06/16/2020 30179-Eeuceegt Plate 06/14/2019 26331-Ytbefhok Plate Each Additional 12/2018 33016-Kbntejir Plate Each Additional 02/2020 90913-LLNF SKIN LESIONS, OVER 4 06/16/20 20 25913-WNPC SKIN LESIONS, OVER 4 06/14/20 19 75092-YPUU SKIN LESIONS, OVER 4 06/18/20 21 47765-YKBD SKIN LESIONS, OVER 4 10/19/19 23 88197-JLCE SKIN LESIONS, OVER 4 10/20/19 24 20714-TWUF SKIN LESIONS, 2 TO 4 05/18/20 18 02705-KPUL SKIN LESIONS, 2 TO 4 05/12/20 17 Next Appt Details Provider Name:Humza Restrepo , 10/18/2024 11:00:00 AM, [address] [place], [address], Insurance Providers Payer Name Payer Address Payer Phone Subscriber Number Group Number Insured Name Patient Relationship to Insured Coverage Start Date Coverage End Date [employer] [address] [place] [address] [id number] Ashley Mendieta Self - patient is the insured Medical (General) History Medical History History ICD Code Arthritis Back,Hip,and Knee pain Cholesterol Cancer Diabetic Gout Measles Mumps Chicken pox Hypertension Neuropathy Osteoporosis Surgical History Surgery Date(Month/Year) tonsillectomy section 1971 laproscopy 1975 neck surgery 2000 back surgery 2007 ,2013 right hip replacement 2013 breast surgery TYRA 2014
--- NOTE | 2024-06-25 12:48 | MHC.PC.OV ---
Vital Signs 06/25/24 12:53 Height 5 ft 5 in Weight 271 lb BMI 45.1 BP 124/78 Blood Pressure Location Lt radial Position Sitting Pulse 61 Pulse Source Pulse Oximeter Pulse Oximetry (%) 95 Oxygen Delivery Method Room Air Intake Visit Reasons: Annual PE Intake Note: Pt is here today for her PE Allergies No Known Allergies Allergy (Mild, Verified 07/01/24 02:49) NONE Medication List - Last Reconciled 06/25/24 by Savannah Mendiola MD acetaminophen ER 650 mg PO Q8H PRN allopurinol 300 mg PO DAILY amoxicillin 2,000 mg (4 x 500 mg) PO ONCE 1 day aspirin 81 mg PO DAILY blood sugar diagnostic (FreeStyle Lite Strips) Test blood sugar once a day blood-glucose meter As directed cholecalciferol (vitamin D3) (Vitamin D3) 50 mcg PO DAILY dicyclomine 10 mg PO QID 30 days gabapentin 300 mg PO BID hydrochlorothiazide 12.5 mg PO DAILY lancets As directed lisinopril 30 mg PO DAILY metformin 1,000 mg PO BID 90 days metoprolol succinate ER 25 mg PO BEDTIME multivitamin 1 cap PO DAILY omega 3-mll-opq-fish oil 1,200 (144-216) mg (Fish Oil) 1 cap PO TID pravastatin 20 mg PO DAILY Tobacco use date assessed: 06/25/24 Fall risk assessment: 2 + Falls in past year Last assessed Fall Risk: 06/25/24 Dental Screening Dental Screen Date: 06/25/24 Did you have a dental visit in the last 12 months?: Yes Did you have a dental problem in the last 6 months where you did not have access to dental care?: No Was dental information given to patient?: Patient has dentist HPI Annual PE HPI Details 74-year-old lady with diabetes mellitus, hypertension, hyperlipidemia, morbid obesity, chronic kidney disease, followed by Nephrology, with history of gout, and low back pain due to degenerative disc disease in lumbar spine, here today for her physical exam. She is up-to-date with her breast cancer screening, last mammogram done earlier this year with showed benign findings. Had a bone density scan done last year which showed presence of osteopenia in left femoral neck, normal in left femur and lumbar spine. Last colonoscopy was done in 2015, due for a recheck in 2025. Latest fasting labs done showed controlled diabetes mellitus with hemoglobin A1c of 5.8%, fasting lipids showed normal LDL cholesterol but has elevated triglycerides [facility] Medical History History of breast cancer History of gout Chronic kidney disease Lumbosacral radiculopathy due to degenerative joint disease of spine Thoracic disc herniation Cervical stenosis of spinal canal Osteoarthritis of multiple joints Peripheral venous insufficiency Type 2 diabetes mellitus with polyneuropathy Diabetes mellitus with kidney complication, without long-term current use of insulin Mixed dyslipidemia Osteopenia Surgical History History of right hip replacement H/O laparoscopy H/O section History of tonsillectomy H/O lumpectomy Family History Father Insulin dependent diabetes mellitus Mother HTN (hypertension) Stroke Brother HTN (hypertension) Brother No problems noted. Son No problems noted. Social History Housing: House Alcohol intake: never Patient Tobacco Use Status: Former Tobacco user e-Cigarette/Vaping Use: Never Used Second Hand Smoke Exposure: No Current occupational status: retired Cognitive needs: No Hearing needs: No Vision needs: No Questionnaire PHQ-9 Over the last 2 weeks, how often have you been bothered by any of the following problems? 1. Little interest or pleasure in doing things: several days 2. Feeling down, depressed, or hopeless: not at all 3. Trouble falling or staying asleep, or sleeping too much: several days 4. Feeling tired or having little energy: several days 5. Poor appetite or overeating: not at all 6. Feeling bad about yourself - or that you are a failure or have let yourself or your family down: not at all 7. Trouble concentrating on things, such as reading the newspaper or watching television: not at all 8. Moving or speaking so slowly that other people could have noticed. Or the opposite - being so fidgety or restless that you have been moving around a lot more than usual: not at all 9. Thoughts that you would be better off or of hurting yourself in some way: not at all Total score: 3 Depression Screening Interpretation: Negative Depression Screening Done: Yes 00501 - PHQ-9 Billing: Yes Source: Developed by Drs. Angel Corrigan, Cathy Bernardo, Oliver Zamora and colleagues, with an educational janes from [employer]. Thrive Questionnaire Date Thrive assessed: 06/25/24 I am a: Patient What is your living situation today?: I have a steady place to live Within the past 12 months, did the food you bought not last and you didn't have the money to get more?: Never true Within the past 12 months, did you worry whether your food would run out before you got money to buy more?: Never true Do you have trouble paying for medicines?: No Do you have trouble getting transportation to medical appointments?: No Do you have trouble paying your heating and electricity bill?: No Do you have trouble taking care of your child, family member or friend?: No Do you have trouble with day-to-day activities such as bathing, preparing meals, shopping, managing finances, etc.?: Yes Are you currently unemployed and looking for a job?: No Are you interested in more education?: No Please select the resources that you would like help with: None Currently or been in a relationship where the following occur: I choose not to answer THRIVE Score: 0 AUDIT C Alcohol Use Questionnaire (AUDIT-C) 1. How often do you have a drink containing alcohol?: Never Total Score: 0 JEREMY-7 AMB Questionnaire JEREMY-7 Date JEREMY - 7 assessed: 06/25/24 Feeling nervous, anxious, or on edge: 0 = Not at all Not being able to stop or control worryin = Not at all Worrying too much about different things: 0 = Not at all Trouble relaxin = Not at all Being so restless that it is hard to sit still: 0 = Not at all Becoming easily annoyed or irritable: 1 = Several days Feeling afraid as if something awful might happen: 0 = Not at all Total JEREMY-7 score (0-4 normal; 5-9 mild; 10-14 moderate; 15-21 severe): 1 Source: Developed by Cathy Arreguin Kurt Kroenke and colleagues, with an educational janes from [employer]. JEREMY-7 Assessment Billing JEREMY-7 Assessment Tool: JEREMY-7 Assessment 61880 Review of Systems Const Denies daytime sleepiness, Denies fatigue, Denies headache(s) and Denies weakness Eyes Denies change in vision ENT Denies dizziness, Denies headache(s), Denies nasal congestion and Denies sore throat Card Denies lightheadedness, Denies palpitations and Denies dyspnea Resp Denies chest congestion, Denies cough, Denies dyspnea and Denies wheezing GI Denies abdominal pain, Denies melena, Denies bloating, Denies hematochezia and Denies heartburn Denies urinary frequency, Denies dysuria and Denies urinary urgency Musc Denies joint swelling and Reports stiffness Skin/Breast Denies breast swelling, Denies breast pain, Denies breast mass, Reports dry skin and Denies rash Neuro Denies dizziness, Denies headache(s) and Denies weakness Psych Reports no additional complaints Endo Denies fatigue, Denies polydipsia, Denies polyuria and Denies palpitations Destin/Lymph Denies easy bruising Aller/Immun Denies seasonal rhinorrhea and Denies wheezing Physical exam (Primary Care) Vital Signs: Last Vital Signs Pulse 61 06/25/24 12:53 BP 124/78 06/25/24 12:53 Pulse Ox 95 06/25/24 12:53 Oxygen Delivery Method Room Air 06/25/24 12:53 BMI result Body Mass Index 45.1 BMI Assessment/Plan discussion: High BMI High, discussed plan: lifestyle, weight reduction, dietary and physical activity Tobacco/Smoking Status: Tobacco use Status Tobacco use date assessed 06/25/24 06/25/24 12:50 Patient Tobacco Use Status Former Tobacco user 06/25/24 12:50 e-Cigarette/Vaping Use Never Used 06/25/24 12:50 PHQ-9: PHQ-9 Score PHQ-9: Total score 3 06/25/24 13:36 Depression Screening Interpretation: Negative Thrive Assessment: Date of Thrive Assessment Date Thrive assessed 06/25/24 06/25/24 12:50 Currently or been in a relationship where the following occur: I choose not to answer Const General: comfortable and no acute distress Nutritional Appearance: obese morbidly obese Orientation/consciousness: patient oriented x3 Limitations: ambulation with walker HENMT Ears: external ears normal General nose exam: Normal external nose present Mouth: moist mucous membranes Eyes General: appearance normal, both eyes and all related structures Neck Neck: Yes full ROM, Yes no lymphadenopathy and Yes supple Resp Effort & Inspection: normal respiratory effort and able to speak in complete sentences Auscultation: clear to auscultation bilaterally Cardio Rate: regular rate Rhythm: regular rhythm Heart sounds: S1 normal heart sound present and S2 normal heart sound present GI Inspection: Yes obesity Palpation (GI): Soft to palpation, nontender, no guarding and no masses Auscultation: normal bowel sounds General: Yes no CVA tenderness Back/Spine/Pelvis Back: no CVA tenderness and No back tenderness Skin General skin exam: no rashes or lesions noted Neuro General: patient oriented x3, Normal light touch and pain sensation and no focal motor deficits Cognition (Neuro): normal cognition Gait exam (Neuro): Assisted gait required Gait assisted method: walker Motor exam (neuro): 5/5 motor strength present throughout Extrem General: Yes no joint enlargement, Yes no clubbing, cyanosis or edema and Yes no calf tenderness Psych Appearance: grossly normal and well kempt Mental Status: mental status grossly normal Speech and movement: Normal speech and movement present Affect: normal affect Attitude: cooperative Thought process: Normal thought process present Results Reviewed Results Reviewed: Laboratory Tests 06/21/24 10:15 Estimat Average Glucose 120 Hemoglobin A1c % 5.8 nadeem: MaryAshley Age/Sex: 74/F : 1950 Unit#: [id number] Attend Dr: Savannah Mendiola MD Re06/21/24 Status: DEP REF Location: [facility] Disch: SPEC : [id number] MANOHAR: 06/21/24 STATUS: COMP REQ : [id number] RECD: 06/21/24-[address]: Savannah Mendiola MD COMP: 06/21/24 ENTERED: 06/21/24-[address]: ORDERED: AST, ALT, Lipid Panel Test Result Flag Reference AST (GOT) 29 5-31 U/L ALT (GPT) 22 0-31 U/L Triglyceride 230 H <150 mg/dL Desirable Triglyceride: less than 150 mg/dL Borderline High Triglyceride 150-199 mg/dL High Triglyceride: 200-499 mg/dL Very High Triglyceride: greater than or equal to 5OO mg/dL Cholesterol 146 <200 mg/dL Desirable Cholesterol: less than 200 mg/dL Borderline High Cholesterol: 200-239 mg/dL High Cholesterol: greater than 239 mg/dL LDL Calculated 56 <100 mg/dL Desirable LDL: less than 100 mg/dL Near Optimal/Above Optimal LDL: 110-129 mg/dL Borderline High LDL: 130-159 mg/dL High LDL: 160-189 mg/dL Very High LDL: greater than or equal to 190 mg/dL HDL 44 >40 mg/dL Desirable HDL: greater than 40 mg/dL Note: This HDL assay may give artificially low results in patients with liver disease. Coding Level of Care Code Est Pt Prev Care >65y(58852) Diagnoses Annual visit for general adult medical examination with abnormal findings Z00.01 Mixed dyslipidemia E78.2 Diabetes mellitus with kidney complication, without long-term current use of insulin E11.29 Type 2 diabetes mellitus with polyneuropathy E11.42 Essential hypertension I10 History of gout Z87.39 Additional Codes PHQ-9 - 42056 - PHQ-9 Billing: Yes ([id number]) JEREMY-7 Assessment Billing - JEREMY-7 Assessment Tool: JEREMY-7 Assessment 53689 ([id number]) Assessment & Plan Assessment & Plan (1) Annual visit for general adult medical examination with abnormal findings: Code(s): Z00.01 - Encounter for general adult medical examination with abnormal findings Plan: Recent fasting lab results reviewed with patient. Recommended dental visit every 6 months and regular eye exams, once a year . Take adequate calcium in diet and vitamin-D 3 at 2000 IU per cap once a day, in addition to weight-bearing exercises to help maintain good muscle tone and weight control. Instructed to do self-breast exam, and continue with yearly mammogram, . Up-to-date with her bone density scan. Colonoscopy screening due again in 2025. Up-to-date with all adult vaccinations (2) Mixed dyslipidemia: Code(s): E78.2 - Mixed hyperlipidemia Category: Medical Plan: Reviewed recent fasting labs with patient which showed elevated triglycerides but normal LDL cholesterol and HDL. Will continue on pravastatin 20 mg daily and Marathon 3 fatty acid supplements at least 1 capsule 3 times a day. Reinforced importance of following low-cholesterol diet and staying active (3) Diabetes mellitus with kidney complication, without long-term current use of insulin: Code(s): E11.29 - Type 2 diabetes mellitus with other diabetic kidney complication Category: Medical Plan: Diabetes mellitus well controlled with hemoglobin A1c at 5.8%. Continued on metformin a 1000 mg 1 tablet twice a day. Emphasized importance of staying well hydrated while taking metformin. Up-to-date with her diabetes retinopathy screening, sees Dr. Brown and goes to [facility] for her yearly diabetes foot exam (4) Type 2 diabetes mellitus with polyneuropathy: Code(s): E11.42 - Type 2 diabetes mellitus with diabetic polyneuropathy Category: Medical Plan: Continue metformin (5) Essential hypertension: Code(s): I10 - Essential (primary) hypertension Category: Medical Plan: Blood pressure at goal of less than 130/80. Continue with current medication. Reinforced importance of following a low sodium diet, getting regular exercise, and lowering stress levels. (6) History of gout: Code(s): Z87.39 - Personal history of other diseases of the musculoskeletal system and connective tissue Category: Medical Plan: Continue allopurinol, has not had any attacks of gout since she started taking medication Orders: Orders Microalbumin, Random (w Creat) 09/07/24 E11.29 - Type 2 diabetes mellitus with other diabetic kidney complication, E11.42 - Type 2 diabetes mellitus with diabetic polyneuropathy, E78.2 - Mixed hyperlipidemia, I10 - Essential (primary) hypertension, Z00.01 - Encounter for general adult medical examination with abnormal findings, Z87.39 - Personal history of other diseases of the musculoskeletal system and connective tissue Basic Metabolic Panel Fasting 09/07/24 E11.29 - Type 2 diabetes mellitus with other diabetic kidney complication, E11.42 - Type 2 diabetes mellitus with diabetic polyneuropathy, E78.2 - Mixed hyperlipidemia, I10 - Essential (primary) hypertension, Z00.01 - Encounter for general adult medical examination with abnormal findings, Z87.39 - Personal history of other diseases of the musculoskeletal system and connective tissue Alanine Aminotransferase 09/07/24 E11.29 - Type 2 diabetes mellitus with other diabetic kidney complication, E11.42 - Type 2 diabetes mellitus with diabetic polyneuropathy, E78.2 - Mixed hyperlipidemia, I10 - Essential (primary) hypertension, Z00.01 - Encounter for general adult medical examination with abnormal findings, Z87.39 - Personal history of other diseases of the musculoskeletal system and connective tissue Vitamin D 25-OH Total 09/07/24 E11.29 - Type 2 diabetes mellitus with other diabetic kidney complication, E11.42 - Type 2 diabetes mellitus with diabetic polyneuropathy, E78.2 - Mixed hyperlipidemia, I10 - Essential (primary) hypertension, Z00.01 - Encounter for general adult medical examination with abnormal findings, Z87.39 - Personal history of other diseases of the musculoskeletal system and connective tissue Hemoglobin A1c 09/07/24 E11.29 - Type 2 diabetes mellitus with other diabetic kidney complication, E11.42 - Type 2 diabetes mellitus with diabetic polyneuropathy, E78.2 - Mixed hyperlipidemia, I10 - Essential (primary) hypertension, Z00.01 - Encounter for general adult medical examination with abnormal findings, Z87.39 - Personal history of other diseases of the musculoskeletal system and connective tissue Lipid Panel 09/07/24 E11.29 - Type 2 diabetes mellitus with other diabetic kidney complication, E11.42 - Type 2 diabetes mellitus with diabetic polyneuropathy, E78.2 - Mixed hyperlipidemia, I10 - Essential (primary) hypertension, Z00.01 - Encounter for general adult medical examination with abnormal findings, Z87.39 - Personal history of other diseases of the musculoskeletal system and connective tissue Aspartate Amino Transferase 09/07/24 E11.29 - Type 2 diabetes mellitus with other diabetic kidney complication, E11.42 - Type 2 diabetes mellitus with diabetic polyneuropathy, E78.2 - Mixed hyperlipidemia, I10 - Essential (primary) hypertension, Z00.01 - Encounter for general adult medical examination with abnormal findings, Z87.39 - Personal history of other diseases of the musculoskeletal system and connective tissue Medications: Discontinued dicyclomine take 15 mins ac Discontinued Reason: Doctor's Order 10 mg PO QID 30 days 360 caps 1RF
[2024-06-25 12:53] VITALS: BP 124/78; PULSE 61; O2SAT 95; BMI 45.1
== END 2024-06-25 13:45 | disposition home or self-care (01) ==
PROVIDERS: PCP Internal Medicine; Visit Provider Internal Medicine
DX: Z00.01 Encounter for general adult medical examination with abnormal findings (principal); E78.2 Mixed hyperlipidemia; E11.29 Type 2 diabetes mellitus with other diabetic kidney complication; E11.42 Type 2 diabetes mellitus with diabetic polyneuropathy; I10 Essential (primary) hypertension; Z87.39 Personal history of other diseases of the musculoskeletal system and connective tissue

== ENCOUNTER → 2024-06-25 12:19 | Outpatient (BNVA) | payer MEDICARE, SELFPAY | PROVIDERS: PCP Internal Medicine; Visit Provider Internal Medicine | DX: Z00.01 Encounter for general adult medical examination with abnormal findings (principal); E78.2 Mixed hyperlipidemia; E11.29 Type 2 diabetes mellitus with other diabetic kidney complication; E11.42 Type 2 diabetes mellitus with diabetic polyneuropathy; E11.22 Type 2 diabetes mellitus with diabetic chronic kidney disease; I12.9 Hypertensive chronic kidney disease with stage 1 through stage 4 chronic kidney disease, or unspecified chronic kidney disease; N18.9 Chronic kidney disease, unspecified; E66.01 Morbid (severe) obesity due to excess calories; Z87.39 Personal history of other diseases of the musculoskeletal system and connective tissue; Z68.42 Body mass index [BMI] 45.0-49.9, adult | CPT/HCPCS: 96127; 99397 ==

== ENCOUNTER 2024-09-04 09:47 | Outpatient (REF) | payer MEDICARE, SELFPAY ==
--- OUTSIDE RECORDS SUMMARY | 2024-09-04 11:27 | XMS_ITS | Clinical Summary ---
Author Organization [facility] Address [address] [place] [address] Phone Care Team Providers Care Lofter Name Role Phone Román Mendiola MD Primary Care Provider [phone] Allergies No known active allergies Medications [place]-3 Fatty Acids (Fish Oil [place]-3) 1000 MG capsule Take 2 capsules by mouth 2 (two) times a day Active Multiple Vitamin (multivitamin) capsule Take 1 capsule by mouth 1 (one) time each day Active allopurinol (ZYLOPRIM) 300 MG tablet Take 1 tablet by mouth 1 (one) time each day Active aspirin 81 MG chewable tablet Chew 1 tablet 1 (one) time each day Active cholecalciferol (VITAMIN D-3) 25 MCG (1000 UT) capsule Take 1 capsule by mouth 1 (one) time each day Active gabapentin (NEURONTIN) 300 MG capsule Take 2 capsules by mouth 2 (two) times a day Active hydroCHLOROthia zide (HYDRODIURIL) 12.5 MG tablet Take 1 tablet by mouth 1 (one) time each day Active lisinopril (PRINIVIL,ZESTR IL) 30 MG tablet Take 1 tablet by mouth 1 (one) time each day Active metoprolol succinate XL (TOPROL-XL) 25 MG 24 hr tablet Take 1 tablet by mouth 1 (one) time each day Active pravastatin (PRAVACHOL) 20 MG tablet Take 1 tablet by mouth 1 (one) time each day Active metFORMIN (GLUCOPHAGE) 1000 MG tablet Take 1,000 mg by mouth 2 (two) times a day with meals Active acetaminophen (TYLENOL) 325 MG tablet Take 650 mg by mouth every 6 (six) hours if needed for mild pain Active Active Problems Problem Noted Date Diagnosed Date Diabetes mellitus 03/26/2021 Gout 03/26/2021 Hypercholesterolemia 03/26/2021 Malignant tumor of breast 03/26/2021 Hypertension 09/10/2020 Renal insufficiency 09/10/2020 Obesity 10/26/2018 Immunizations Name Administration Dates Next Due Influenza (IM) Preservative Free 03/29/2021,03/2018,03/15/2017 Pfizer SARS-COV-2 05/15/2021 Family History Medical History Relation Comments Diabetes Father Hypertension Mother Hypertension Sibling Relation Status Comments Father Mother Sibling Social History Tobacco Use Types Packs/Day Years Used Date Smoking Tobacco: Former Cigarettes Q uit: 07/10/2000 Smokeless Tobacco: Former Tobacco Cessation:Counseling Given: No Alcohol Use Standard Drinks/Week Comments Never 0 (1 standard drink = 0.6 oz pur e alcohol) Comments Unknown Sex and Gender Information Value Date Recorded Sex Assigned at Not on file Legal Sex Female 4:54 PM EST Gender Identity Not on file Sexual Orientation Not on file Last Filed Vital Signs Vital Sign Reading Time Taken Comments Blood Pressure 139/61 11/03/2022 12:47 PM EDT Pulse 74 11/03/2022 12:47 PM EDT Temperature - - Respiratory Rate - - Oxygen Saturation 98% 11/03/2022 12:47 PM EDT Inhaled Oxygen Concentration - - Weight 113 kg (250 lb) 05/05/2022 1:47 PM EDT Height 165.1 cm (5' 5 ) 05/05/2022 1:47 PM EDT Body Mass Index 41.6 05/05/2022 1:47 PM EDT Plan of Treatment Health Maintenance Due Date Last Done Comments Breast Cancer Screening 1950 Pneumococcal Vaccine: 65+ Years (1 of 2 - PCV) [birth year]26/1956 Colorectal Cancer Screening: Annual FOBT 1999 Colorectal Cancer Screening: Colonoscopy 1999 Colorectal Cancer Screening: Sigmoidoscopy 1999 Diabetes: Hemoglobin A1C 03/16/2021 Diabetes: Ophthalmology Exam 03/16/2021 Diabetes: Pedal Pulse Checked 03/16/2021 Diabetes: Sensory Foot Exam 03/16/2021 Diabetes: Visual Foot Exam 03/16/2021 Influenza Vaccine (#1) 2024 , 05/18/2018, 03/15/2017 Hepatitis B Vaccine Aged Out No longe r eligible based on patient's age to complete this topic Insurance [facility] Care Teams Lofter Relationship Specialty Start Date End Date Román Mendiola MD [facility] [place] [address] PCP - General 07/20/20
--- OUTSIDE RECORDS SUMMARY | 2024-09-04 11:27 | XMS_ITS ---
Author Organization [facility] Address [address] [place] [address] Care Team Providers Care Car Sales Associate Name Role Phone Maury HERNANDEZ, Savannah Sanchez Primary Care Provider Un available Humza Restrepo Unavailable [phone] Allergies Allergen (clinical drug ingredient) Drug/Non Drug [...] Ordered Date Performed Result Body Sit e 87201-RSVIAHT NAIL, 6 OR MORE 10/20/2023 N/A 14762-GPGN SKIN LESIONS, OVER 4 10/20/2023 N/A Encounters Encounter Location Date Provider Diagnosis [facility] [address] [place] [address] 10/20/2023 Humza Restrepo Type 2 diabetes mellitus [...] INSTRUCTIONS.pdf) Pending Test Test Name Order Date [id number]-[id number] NAIL, 6 OR MORE 10/20/2023 10059-SIXL SKIN LESIONS, OVER 4 10/20/19 24 Next Appt Details Follow Up: 1 Year, Reason: Provider Name:Humza Amanda Restrepo , 10/18/2024 11:00:00 AM, [address] [place], [address], Procedure Notes * Category Sub-Category Detail Notes [...] as necessary. Patient chooses, no pharmaceutical tx (43769) Keratoma Treatment Parring or Cutting o f Benign Hyperkeratotic Lesion(s) 23498 ( >4 Lesions) - The Benign hyperkeratotic lesions, as described above were pared, and/or cut utilizing a sterile #15 blade, tissue nippers, and/or dremel Progress Notes * Chio CAMPOB: 0 (74 yo F)Acc No.[id number]:10/20/2023 Progress Note Patient:?CONRADO Ashley Provider:?Humza Restrepo DPM :1950???Age:73 Y???Sex:Female D ate:10/20/2023 Address:[address] [place], [place] [id number] Pcp:Adonis Shelton Subjective: * Chief Complaints: * ???At Risk FootcareToe Irrit ation * HPI: ???At Risk footcare:?Pt States Last PCP Visit:?Date?07/11/2023 ???Toe pain:?Location:?B/L feet.?Duration:?several years.?Course:?worse.?Aggravated by:?shoes, any pressure.?Treatments:?change in shoes.? * ROS:?General/Constitutional:?Nausea?denies.?Vomiting?denies.?Hunger [...] can soda a day. ?Children: yes, 1. ?Exercise: no. ?Marital status: . ?Occupation: disability. * Medications:?TakingTylenol A llopurinol 300 MG Tablet Orally Once a day Aspir-81 Fish Oil Gabapentin 300 MG Capsule 1 capsule Orally BID hydroCHLOROthiazide 12.5 MG Capsule 1 capsule Orally Once a day Lisinopril 30 MG Tablet Orally Once a day metFORMIN HCl 1000 MG Tablet 1 tablet with meals Orally Twice a day Metoprolol Succinate 25 MG Capsule ER 24 Hour Sprinkle Orally Multivitamin Pravastatin Sodium 20 MG Tablet Orally Once a day Vitamin D3 Taking Tylenol Taking Allopurinol 300 MG Tablet Orally Once a day Taking Aspir-81 Taking Fish Oil Taking Gabapentin 300 MG Capsule 1 capsule Orally BID Taking hydroCHLOROthiazide 12.5 MG Capsule 1 capsule Orally Once a day Taking Lisinopril 30 MG Tablet Orally Once a day Taking metFORMIN HCl 1000 MG Tablet 1 tablet with meals Orally Twice a day Taking Metoprolol Succinate 25 MG Capsule ER 24 Hour Sprinkle Orally Taking Multivitamin Taking Pravastatin Sodium 20 MG Tablet Orally Once a day Taking Vitamin D3 Not-Taking/PRNLantus SoloStar 10 units QD Letrozole 2.5 MG Tablet Orally Once a day Not-Taking/PRN Lantus SoloStar 10 units QD Not-Taking/PRN Letrozole 2.5 MG Tablet Orally Once a day UnknownAdvil Medication List reviewed and reconciled with the patientUnknown Advil Medication List reviewed and reconciled with the patient * Allergies:?Adhesiveyes[Aller gies Verified] Objective: * Vitals:?Ht: 5 ft 5 in, Wt:25 6, BMI:42.60, Shoe size:9.5, BS:130. * ???Past Orders: ???Lab:HEMOGLOBIN A1C (GLYCO HEMOGLOBIN) (Order Date - 11/08/2021) (Collection Date & Time - 11/08/2021) ? Value Reference Range ?HEMOGLOBIN [...] gear properties exacerbate patient's foot/toe deformity.?Vascular: ?DP PULSES (B):?0/4, B/L.?PT PULSES (B):?0/4, B/L.?CAPILLARY FILL TIME:?delayed, all digits, B/L.?TROPHIC CONDITION-TEXTURE/ELASTICITY/TURGOR/HAIR GROWTH (B):?decreased, B/L.?TEMPERTURE GRADIENT (C):?decreased, cool to cool, proximal to distal, B/L.?PIGMENTATION:? rubrous, B/L.?EDEMA (C):? 3/4, pitting, without aching pain, B/L, Leg(s), Ankle(s), Feet.?CLAUDICATION (C):?denies, B/L.?REST PAIN:?denies, B/L.?JUVENTINO'S SIGN:?absent, B/L.?PALPABLE CORDS:?absent, B/L.?Ophthalmology Referral: ?DIABETES EYE EXAM?Procedure Performed:?Yes ?Date of Exam Performed?07/18/2023 ?Diabetic Retinopathy Screening:?Yes ?Findings of Diabetic Eye Exam:?no retinopathy?General Examination: ?GENERAL APPEARANCE:?Reveals a pleasant, alert, well nourished, well- developed, well hydrated individual, who demonstrates proper attention to hygiene/body habitus, and is in no acute distress, Pt serves as own historian for office visit today , Pt accompanied by , , and/who is physically present in exam room at time of visit.?ORIENTED:?person, place, and time.?FOOT EXAM:?Lower Extremity Neurological Exam performed:?Yes ?Visual exam of foot performed:?Yes ?Date?10/20/2023 ?Footwear Evaluation?Footwear Evaluation performed:?Yes??? Assessment: * Assessment: 1.?Type 2 diabetes mellitus with diabetic polyneuropathy - E11.42 (Primary)???2.?Tinea unguium - B35.1???3.?Other hammer toe(s) (acquired), right foot - M20.41???Specify :Chronic problem, Worse (4),Rx Management (4)???4.?Other hammer toe(s) (acquired), left foot - M20.42???Specify :Chronic problem, Worse (4),Rx Management (4)??? Plan: * Treatment: 2.?Other hammer toe(s) (acqu [...] as necessary. Patient chooses, no pharmaceutical tx (91040).?Keratoma Treatment:?Parring or Cutting of Benign Hyperkeratotic Lesion(s)?32467 ( >4 Lesions) - The Benign hyperkeratotic lesions, as described above were pared, and/or cut utilizing a sterile #15 blade, tissue nippers, and/or dremel.? * Procedure Codes:?06572 DEBRI DE NAIL, 6 OR MORE, Modifiers: XS 45539 TRIM SKIN LESIONS, OVER 4, Modifiers: XS [...] dispensed.? ??Screening/Special Tests:?Fall Risk?Assessment:?Performed ?Plan of Care:?Documented ?Type of fall plan of care:?Balance, strength and gait training or instruction provided ?Screening:?Two or more falls with injury in the past year ?FALLS: Screening for Future Fall Risk?Have you had two or more falls in the past year??Yes ?Have you had any falls with injury in the past year??Yes * Follow Up:?1 Year * Images: * Sign off status: Completed true * Provider:?Humza Restrepo DPM Date:?2023 Generated for Dania villavicencio/Nas/Ivelisse on:?09/04/2024 11:26 AM EST History and Physical Notes * [...] Lower Extremity Neurological Exa m performed:: Yes Visual exam of foot performed:: Yes Date: 10/20/2023 ORIENTED: person, place, and t juan Footwear Evaluation Footwear Evaluation performe d:: Yes Ophthalmology Referral DIABETES EYE EXAM Procedure Perform ed:: Yes ?Date of Exam Performed: 07/18/2023 Diabetic Retinopathy Screening:: Yes Findings of Diabetic Eye Exam:: no retin opathy Vascular DP PULSES (B): 0/4, B/L PT PULSES (B): 0/4, B/L CAPILLARY FILL TIME: delayed, all digits , B/L TEMPERTURE GRADIENT (C): decreased, cool to cool, proximal to distal, B/L TROPHIC CONDITION-TEXTURE/ELASTICITY/TURGOR/HAIR GROWTH (B): decreased, B/L EDEMA (C): 3/4, pitting, withou t aching pain, B/L, Leg(s), Ankle(s), Feet CLAUDICATION (C): denies, B/L REST PAIN: denies, B/L JUVENTINO'S SIGN: absent, B/L PALPABLE CORDS: absent, B/L PIGMENTATION: rubrous, B/L Nails NAILS are: Elongated, overg rown, dystrophic, lytic, greater than 3mm thick, discolored and friable with crumbly malodorous subungual debris, 1-5 B/L
--- OUTSIDE RECORDS SUMMARY | 2024-09-04 11:27 | XMS_ITS | Patient Health Record ---
Author [facility] Address [address] [place] [address] Care Team Providers Care Water Treatment Technician Name Role Phone Maury HERNANDEZ, Savannah Sanchez Primary Care Provider Un available Humza Restrepo Unavailable [phone] Allergies Allergen (clinical drug ingredient) Drug/Non Drug [...] Problem Acquired hammer toe of right foot (9345684885968793 ) Other hammer toe(s) (acquired), right foot (M20.41) Active confirmed Problem Acquired hammer toe of left foot (0318271937247960 ) Other hammer toe(s) (acquired), left foot (M20.42) Active confirmed Problem Polyneuropathy due to type 2 diabetes mellitus (937164795) Type 2 diabetes mellitus with diabetic polyneuropathy (E11.42) Active confirmed Vital Signs Height 5 ft 5 in in 10/20/2023 Weight 256 lbs 10/20/2023 BMI 42.60 kg/m2 10/20/2023 Procedures Procedure Date Ordered Date Performed Result Body Sit e 59186-YVZPKUU NAIL, 6 OR MORE 10/20/2023 N/A 53161-JOAL SKIN LESIONS, OVER 4 10/20/2023 N/A Encounters Encounter Location Date Provider Diagnosis [facility] [address] [place] [address] 10/20/2023 Humza Restrepo Type 2 diabetes mellitus [...] Treatment Pending Test Test Name Order Date 18542-DYUWIGT NAIL, 6 OR MORE 05/12/2017 04907-DDLJOWJ NAIL, 6 OR MORE 06/14/2019 39525-PFXBPFO NAIL, 6 OR MORE 06/16/2020 51958-QPQJAAS NAIL, 6 OR MORE 06/18/2021 14057-XXZTOQA NAIL, 6 OR MORE 10/18/2022 75033-YUGHYPW NAIL, 6 OR MORE 10/20/2023 64739-HNFJOSS NAIL, 6 OR MORE 05/18/2018 76440-Xnabtyno Plate 10/18/2022 32792-Fqmzthno Plate 06/16/2020 52735-Nnykouvg Plate 06/18/2021 45810-Byigarhi Plate 06/14/2019 82513-Eqeaznjw Plate Each Additional 12/2018 36262-Sszfwayq Plate Each Additional 02/2020 90186-YNIP SKIN LESIONS, OVER 4 06/16/20 20 33869-OEMQ SKIN LESIONS, OVER 4 10/19/19 23 64812-INPZ SKIN LESIONS, OVER 4 10/20/19 24 92777-EBYQ SKIN LESIONS, OVER 4 06/14/20 19 90069-WWXV SKIN LESIONS, OVER 4 06/18/20 21 01152-QNVR SKIN LESIONS, 2 TO 4 05/18/20 18 51077-JADG SKIN LESIONS, 2 TO 4 05/12/20 17 Next Appt Details Provider Name:Humza Restrepo , 10/18/2024 11:00:00 AM, [address] [place], [address], Insurance Providers Payer Name Payer Address Payer Phone Subscriber Number Group Number Insured Name Patient Relationship to Insured Coverage Start Date Coverage End Date [employer] [address] [place] [address] [id number] Ashley Mendieta Self - patient is the insured Medical (General) History Medical History History ICD Code Arthritis Back,Hip,and Knee pain Cholesterol Cancer Diabetic Gout Measles Mumps Chicken pox Hypertension Neuropathy Osteoporosis Surgical History Surgery Date(Month/Year) tonsillectomy section 1971 laproscopy 1975 neck surgery 2000 back surgery 2007 ,2013 right hip replacement 2013 breast surgery TYRA 2014
[2024-09-04 13:54] LABS: Estimated Average Glucose 126 mg/dL
[2024-09-04 14:09] LABS: Alanine Aminotransferase 27 U/L (0-31); Anion Gap 13 (12-20); Aspartate Amino Transferase 34 U/L (5-31); Blood Urea Nitrogen 23 mg/dL (9-16); Calcium 9.3 mg/dL (8.4-10.2); Carbon Dioxide 25 mmol/L (22-29); Chloride 108 mmol/L (96-108); Cholesterol 156 mg/dL (<200); Estimated Glomerular Filt Rate 47; Glucose Fasting 153 mg/dL (60-99); HDL Cholesterol 45 mg/dL (>40); LDL Cholesterol Calculated 62 mg/dL (<100); Potassium 4.6 mmol/L (3.3-5.1); Sodium 141 mmol/L (135-145); Triglycerides 246 mg/dL (<150)
[2024-09-04 14:19] LABS: Vitamin D 25-OH Total 84.3 ng/mL (>30)
[2024-09-04 14:23] LABS: Creatinine Urine 132.26 mg/dL
[2024-09-04 14:34] LABS: Microalbum/Creatinine Ratio Ur 382.5 ug/mg cr (<30)
== END 2024-09-04 09:48 | disposition home or self-care (01) ==
LOC: HO.HMGCLDS 09:47
PROVIDERS: PCP Internal Medicine; Visit Provider Internal Medicine
DX: Z00.01 Encounter for general adult medical examination with abnormal findings (principal); I10 Essential (primary) hypertension; E11.42 Type 2 diabetes mellitus with diabetic polyneuropathy; Z87.39 Personal history of other diseases of the musculoskeletal system and connective tissue; E78.2 Mixed hyperlipidemia; E11.29 Type 2 diabetes mellitus with other diabetic kidney complication
CPT/HCPCS: 36415; 80048; 80061; 82043; 82306; 82570; 83036; 84450; 84460

== ENCOUNTER 2024-09-09 11:35 | Outpatient (AMB) | payer MEDICARE, SELFPAY ==
[2024-09-09 13:15] VITALS: BP 126/78; PULSE 50; O2SAT 95; BMI 45.0
--- NOTE | 2024-09-09 13:15 | A.OFFPC_ITS ---
Vital Signs 09/09/24 13:15 Height 5 ft 5 in Weight 270 lb 6 oz BMI 45.0 BP 126/78 Blood Pressure Location Rt brachial Position Sitting Pulse 50 Pulse Source Pulse Oximeter Pulse Oximetry (%) 95 Oxygen Delivery Method Room Air Intake Visit Reasons: 3 months f/up Intake Note: Pt is here today for 3 month follow up Allergies No Known Allergies Allergy (Mild, Verified 09/09/24 13:21) NONE Medication List - Last Reconciled 09/09/24 by Savannah Mendiola MD acetaminophen ER 650 mg PO Q8H PRN allopurinol 300 mg PO DAILY aspirin 81 mg PO DAILY blood sugar diagnostic (FreeStyle Lite Strips) Test blood sugar once a day blood-glucose meter As directed cholecalciferol (vitamin D3) (Vitamin D3) 50 mcg PO DAILY gabapentin 300 mg PO BID hydrochlorothiazide 12.5 mg PO DAILY lancets As directed lisinopril 30 mg PO DAILY metformin 1,000 mg PO BID 90 days metoprolol succinate ER 25 mg PO BEDTIME multivitamin 1 cap PO DAILY omega 1-tqu-zmx-fish oil 1,200 (144-216) mg (Fish Oil) 1 cap PO TID pravastatin 20 mg PO DAILY Tobacco use date assessed: 09/09/24 Fall risk assessment: 2 + Falls in past year Last assessed Fall Risk: 09/09/24 Dental Screening Dental Screen Date: 09/09/24 Did you have a dental visit in the last 12 months?: Yes Did you have a dental problem in the last 6 months where you did not have access to dental care?: No Was dental information given to patient?: Patient has dentist HPI 3 months f/up HPI Details 74-year-old lady here today for follow-u p on her diabetes mellitus and hyperlipidemia. Currently taking metformin a 1000 mg 1 tablet twice a day and pravastatin 20 mg at bedtime. Fasting labs showed hemoglobin A1c at 6%, with fasting lipids within normal limits. Has been having difficulty controlling her urine, sometimes does not make it to the bathroom. Has been wearing diapers, but sometimes this is not enough and now seldom leaves the house, afraid of having an accident when outside. [facility] Medical History (Updated 09/09/24 @ 13:29 by Savannah Mendiola MD) Mixed incontinence urge and stress History of breast cancer History of gout Chronic kidney disease Lumbosacral radiculopathy due to degenerative joint disease of spine Thoracic disc herniation Cervical stenosis of spinal canal Osteoarthritis of multiple joints Peripheral venous insufficiency Type 2 diabetes mellitus with polyneuropathy Diabetes mellitus with kidney complication, without long-term current use of insulin Mixed dyslipidemia Osteopenia Surgical History History of right hip replacement H/O laparoscopy H/O section History of tonsillectomy H/O lumpectomy Family History Father Insulin dependent diabetes mellitus Mother HTN (hypertension) Stroke Brother HTN (hypertension) Brother No problems noted. Son No problems noted. Social History Housing: House Alcohol intake: never Patient Tobacco Use Status: Former Tobacco user e-Cigarette/Vaping Use: Never Used Second Hand Smoke Exposure: No Current occupational status: retired Cognitive needs: No Hearing needs: No Vision needs: No Questionnaire PHQ-9 Over the last 2 weeks, how often have you been bothered by any of the following problems? 1. Little interest or pleasure in doing things: several days 2. Feeling down, depressed, or hopeless: not at all 3. Trouble falling or staying asleep, or sleeping too much: not at all 4. Feeling tired or having little energy: not at all 5. Poor appetite or overeating: not at all 6. Feeling bad about yourself - or that you are a failure or have let yourself or your family down: not at all 7. Trouble concentrating on things, such as reading the newspaper or watching television: not at all 8. Moving or speaking so slowly that other people could have noticed. Or the opposite - being so fidgety or restless that you have been moving around a lot more than usual: not at all 9. Thoughts that you would be better off or of hurting yourself in some way: not at all Total score: 1 Depression Screening Interpretation: Negative Depression Screening Done: Yes 86954 - PHQ-9 Billing: Yes Source: Developed by Drs. Angel Corrigan, Cathy Bernardo, Oliver Zamora and colleagues, with an educational janes from [employer]. Thrive Questionnaire Date Thrive assessed: 09/09/24 I am a: Patient What is your living situation today?: I choose not to answer this question Within the past 12 months, did the food you bought not last and you didn't have the money to get more?: I choose not to answer this question Within the past 12 months, did you worry whether your food would run out before you got money to buy more?: I choose not to answer this question Do you have trouble paying for medicines?: I choose not to answer this question Do you have trouble getting transportation to medical appointments?: I choose not to answer this question Do you have trouble paying your heating and electricity bill?: I choose not to answer this question Do you have trouble taking care of your child, family member or friend?: I choose not to answer this question Do you have trouble with day-to-day activities such as bathing, preparing meals, shopping, managing finances, etc.?: I choose not to answer this question Are you currently unemployed and looking for a job?: I choose not to answer this question Are you interested in more education?: I choose not to answer this question Please select the resources that you would like help with: None Currently or been in a relationship where the following occur: No concerns reported THRIVE Score: 0 AUDIT C Alcohol Use Questionnaire (AUDIT-C) 1. How often do you have a drink containing alcohol?: Never 3. How often do you have six or more drinks on one occasion?: Never Total Score: 0 Score Reviewed/Action Taken: Yes JEREMY-7 AMB Questionnaire JEREMY-7 Date JEREMY - 7 assessed: 09/09/24 Feeling nervous, anxious, or on edge: 0 = Not at all Not being able to stop or control worryin = Not at all Worrying too much about different things: 0 = Not at all Trouble relaxin = Not at all Being so restless that it is hard to sit still: 0 = Not at all Becoming easily annoyed or irritable: 0 = Not at all Feeling afraid as if something awful might happen: 0 = Not at all Total JEREMY-7 score (0-4 normal; 5-9 mild; 10-14 moderate; 15-21 severe): 0 Source: Developed by Cathy Arreguin. Az, Oliver Zamora and colleagues, with an educational janes from [employer]. JEREMY-7 Assessment Billing JEREMY-7 Assessment Tool: JEREMY-7 Assessment 04464 Review of Systems Const Denies daytime sleepiness, Denies fatigue, Denies headache(s) and Denies weakness Eyes Denies change in vision ENT Denies dizziness, Denies headache(s), Denies nasal congestion and Denies sore throat Card Denies lightheadedness, Denies palpitations and Denies dyspnea Resp Denies chest congestion, Denies cough, Denies dyspnea and Denies wheezing GI Denies abdominal pain, Denies melena, Denies bloating, Denies hematochezia and Denies heartburn Denies urinary frequency, Denies dysuria, Reports urinary incontinence and Denies urinary urgency Musc Denies joint swelling and Reports stiffness Skin/Breast Denies breast pain, Denies breast mass, Reports dry skin and Denies rash Neuro Denies dizziness, Denies headache(s) and Denies weakness Psych Reports no additional complaints Endo Denies fatigue, Denies polydipsia, Denies polyuria and Denies palpitations Destin/Lymph Denies easy bruising Aller/Immun Denies seasonal rhinorrhea and Denies wheezing Physical exam (Primary Care) Vital Signs: Last Vital Signs Pulse 50 09/09/24 13:15 BP 126/78 09/09/24 13:15 Pulse Ox 95 09/09/24 13:15 Oxygen Delivery Method Room Air 09/09/24 13:15 BMI result Body Mass Index 45.0 BMI Assessment/Plan discussion: High BMI High, discussed plan: lifestyle, weight reduction, dietary and physical activity Tobacco/Smoking Status: Tobacco use Status Tobacco use date assessed 09/09/24 09/09/24 13:19 Patient Tobacco Use Status Former Tobacco user 09/09/24 13:19 e-Cigarette/Vaping Use Never Used 09/09/24 13:19 PHQ-9: PHQ-9 Score PHQ-9: Total score 1 09/16/24 02:13 Depression Screening Interpretation: Negative Thrive Assessment: Date of Thrive Assessment Date Thrive assessed 09/09/24 09/09/24 13:20 Currently or been in a relationship where the following occur: No concerns reported Const General: comfortable and no acute distress Nutritional Appearance: obese morbidly obese Orientation/consciousness: patient oriented x3 Limitations: ambulation with walker HENMT Ears: external ears normal General nose exam: Normal external nose present Mouth: moist mucous membranes Eyes General: appearance normal, both eyes and all related structures Neck Neck: Yes full ROM, Yes no lymphadenopathy and Yes supple Resp Effort & Inspection: normal respiratory effort and able to speak in complete sentences Auscultation: clear to auscultation bilaterally Cardio Rate: regular rate Rhythm: regular rhythm Heart sounds: S1 normal heart sound present and S2 normal heart sound present GI Inspection: Yes obesity Palpation (GI): Soft to palpation, nontender, no guarding and no masses Auscultation: normal bowel sounds Neuro General: patient oriented x3, Normal light touch and pain sensation and no focal motor deficits Cognition (Neuro): normal cognition Gait exam (Neuro): Assisted gait required Gait assisted method: walker Motor exam (neuro): 5/5 motor strength present throughout Extrem General: Yes no joint enlargement, Yes no clubbing, cyanosis or edema and Yes no calf tenderness Psych Affect: normal affect Results Reviewed Results Reviewed: Name: Ashley Hernandez Age/Sex: 74/F : 1950 Unit#: [id number] Attend Dr: Savannah Mendiola MD Re09/04/24 Status: DEP REF Location: [facility] Disch: SPEC : [id number] MANOHAR: 09/04/24 STATUS: COMP REQ : [id number] RECD: 09/04/[address]: Savannah Mendiola MD COMP: 09/04/249 ENTERED: 09/04/[address]: ORDERED: Met Prof Fast, AST, ALT, Lipid Panel, Vitamin D 25-OH Test Result Flag Reference Sodium 141 135-145 mmol/L Potassium 4.6 3.3-5.1 mmol/L CL 108 96-108 mmol/L CO2 25 22-29 mmol/L Gap 13 12-20 BUN 23 H 9-16 mg/dL Creat 1.14 0.5-1.4 mg/dL eGFR 47 Chronic Kidney Disease: Estimated GFR < 60 mL/min/1.73m2 Severe Kidney Disease: Estimated GFR < 15 mL/min/1.73m2 FBS 153 H 60-99 mg/dL A fasting glucose of 126 mg/dl or greater on more than one occasion is considered diagnostic of diabetes. CA 9.3 8.4-10.2 mg/dL AST (GOT) 34 H 5-31 U/L ALT (GPT) 27 0-31 U/L Triglyceride 246 H <150 mg/dL Desirable Triglyceride: less than 150 mg/dL Borderline High Triglyceride 150-199 mg/dL High Triglyceride: 200-499 mg/dL Very High Triglyceride: greater than or equal to 5OO mg/dL Cholesterol 156 <200 mg/dL Desirable Cholesterol: less than 200 mg/dL Borderline High Cholesterol: 200-239 mg/dL High Cholesterol: greater than 239 mg/dL LDL Calculated 62 <100 mg/dL Desirable LDL: less than 100 mg/dL Near Optimal/Above Optimal LDL: 110-129 mg/dL Borderline High LDL: 130-159 mg/dL High LDL: 160-189 mg/dL Very High LDL: greater than or equal to 190 mg/dL HDL 45 >40 mg/dL Desirable HDL: greater than 40 mg/dL Note: This HDL assay may give artificially low results in patients with liver disease. Vit D 25-OH Tot 84.3 >30 ng/mL Health Based Reference Values* < 20 ng/mL Deficient 20-30 ng/mL Insufficient > 30 ng/mL Sufficient Laboratory Tests 09/04/24 09/04/24 09:00 10:07 Estimat Average Glucose 126 Hemoglobin A1c % 6.0 Urine Creatinine 132.26 Urine Microalbumin 506.0 Microalb/Creat Ratio 382.5 H 9 Coding Level of Care Code Est Pt Level 4 (67545) Complex EM visit Add On G2211 Diagnoses Mixed incontinence urge and stress N39.46 Mixed dyslipidemia E78.2 Diabetes mellitus with kidney complication, without long-term current use of insulin E11.29 Type 2 diabetes mellitus with polyneuropathy E11.42 Essential hypertension I10 Additional Codes JEREMY-7 Assessment Billing - JEREMY-7 Assessment Tool: JEREMY-7 Assessment 32482 ([id number]) PHQ-9 - 18818 - PHQ-9 Billing: Yes ([id number]) Assessment & Plan Assessment & Plan (1) Mixed incontinence urge and stress: Code(s): N39.46 - Mixed incontinence Category: Medical Plan: Rx sent for oxybutynin chloride ER 10 mg once a day. Has possible side effects of medication which includes possible constipation and dry mouth. Referred to urology for further evaluation management (2) Mixed dyslipidemia: Code(s): E78.2 - Mixed hyperlipidemia Category: Medical Plan: Reviewed recent fasting lipid profile with patient with levels within normal limits . Continue pravastatin 20 mg at bedtime , in addition to adherence to low-cholesterol diet and regular exercise, at least 30 minutes 3 to 4 times a week. Advised patient to make healthy food choices, eat more fruits, vegetables, whole grains, wild caught fish and low-fat dairy. Limit amount of meat and fried or fatty food products, as well as processed foods and fast douglas ds. Follow-up scheduled with repeat fasting lipid panel in 4 months. (3) Diabetes mellitus with kidney complication, without long-term current use of insulin: Code(s): E11.29 - Type 2 diabetes mellitus with other diabetic kidney complication Category: Medical Plan: Diabetes mellitus controlled, continued on metformin 1000 mg 1 tablet twice a day follow-up in 4 months (4) Type 2 diabetes mellitus with polyneuropathy: Code(s): E11.42 - Type 2 diabetes mellitus with diabetic polyneuropathy Category: Medical Plan: Currently on gabapentin 300 mg 1 tablet twice a day (5) Essential hypertension: Code(s): I10 - Essential (primary) hypertension Category: Medical Plan: Blood pressure at goal of less than 130/80. Continue with current medication. Reinforced importance of following a low sodium diet, getting regular exercise, and lowering stress levels. Orders: Orders Hemoglobin A1c 01/07/25 E11.29 - Type 2 diabetes mellitus with other diabetic kidney complication, E11.42 - Type 2 diabetes mellitus with diabetic polyneurop athy, E78.2 - Mixed hyperlipidemia, I10 - Essential (primary) hypertension, N39.46 - Mixed incontinence Aspartate Amino Transferase 01/07/25 E11.29 - Type 2 diabetes mellitus with other diabetic kidney complication, E11.42 - Type 2 diabetes mellitus with diabetic polyneuropathy, E78.2 - Mixed hyperlipidemia, I10 - Essential (primary) hypertension, N39.46 - Mixed incontinence Lipid Panel 01/07/25 E11.29 - Type 2 diabetes mellitus with other diabetic kidney complication, E11.42 - Type 2 diabetes mellitus with diabetic polyneuropathy, E78.2 - Mixed hyperlipidemia, I10 - Essential (primary) hypertension, N39.46 - Mixed incontinence Alanine Aminotransferase 01/07/25 E11.29 - Type 2 diabetes mellitus with other diabetic kidney complication, E11.42 - Type 2 diabetes mellitus with diabetic polyneuropathy, E78.2 - Mixed hyperlipidemia, I10 - Essential (primary) hypertension, N39.46 - Mixed incontinence Basic Metabolic Panel Fasting 01/07/25 E11.29 - Type 2 diabetes mellitus with other diabetic kidney complication, E11.42 - Type 2 diabetes mellitus with diabetic polyneuropathy, E78.2 - Mixed hyperlipidemia, I10 - Essential (primary) hypertension, N39.46 - Mixed incontinence Referrals Urology Referral N39.46 - Mixed incontinence Medications: New oxybutynin chloride ER 10 mg PO DAILY 30 tabs 0RF N39.46 - Mixed incontinence
--- OUTSIDE RECORDS SUMMARY | 2024-09-09 13:49 | XMS_ITS | Patient Health Record ---
[facility] Address [address] [place] [address] Care Team Providers Care High [employer] History Teacher Name Role Phone Maury HERNANDEZ, Savannah Sanchez Primary Care Provider Un available Humza Restrepo Unavailable [phone] Allergies Allergen (clinical drug ingredient) Drug/Non Drug [...] Problem Acquired hammer toe of right foot ([id number] ) Other hammer toe(s) (acquired), right foot (M20.41) Active confirmed Problem Acquired hammer toe of left foot ([id number] ) Other hammer toe(s) (acquired), left foot (M20.42) Active confirmed Problem Polyneuropathy due to type 2 diabetes mellitus (585413032) Type 2 diabetes mellitus with diabetic polyneuropathy (E11.42) Active confirmed Vital Signs Height 5 ft 5 in in 10/20/2023 Weight 256 lbs 10/20/2023 BMI 42.60 kg/m2 10/20/2023 Procedures Procedure Date Ordered Date Performed Result Body Sit e 66475-RIDZMGV NAIL, 6 OR MORE 10/20/2023 N/A 79496-AFEL SKIN LESIONS, OVER 4 10/20/2023 N/A Encounters Encounter Location Date Provider Diagnosis [facility] [place] [address] [place] [address] 10/20/2023 Humza Restrepo Type 2 diabetes mellitus [...] Treatment Pending Test Test Name Order Date 63982-CYIDJFK NAIL, 6 OR MORE 05/18/2018 92539-VLJFXBF NAIL, 6 OR MORE 06/14/2019 01840-LPRCRRJ NAIL, 6 OR MORE 05/12/2017 52588-FZFREHW NAIL, 6 OR MORE 06/16/2020 94619-KWSESOG NAIL, 6 OR MORE 06/18/2021 18575-SIRYMOX NAIL, 6 OR MORE 10/18/2022 50053-UJYLWLG NAIL, 6 OR MORE 10/20/2023 54280-Xvywoski Plate 10/18/2022 63753-Rzvohpcq Plate 06/18/2021 59787-Qoresorj Plate 06/16/2020 93970-Cexxjdhx Plate 06/14/2019 45119-Xbjhfuod Plate Each Additional 12/2018 05410-Mrxzunrl Plate Each Additional 02/2020 10493-MEAU SKIN LESIONS, OVER 4 06/16/20 20 01643-EIFX SKIN LESIONS, OVER 4 06/14/20 19 65785-JIWC SKIN LESIONS, OVER 4 06/18/20 21 39085-ASYE SKIN LESIONS, OVER 4 10/19/19 23 52544-WZGI SKIN LESIONS, OVER 4 10/20/19 24 68085-UDIM SKIN LESIONS, 2 TO 4 05/18/20 18 78444-QPOO SKIN LESIONS, 2 TO 4 05/12/20 17 Next Appt Details Provider Name:Humza Restrepo , 10/18/2024 11:00:00 AM, [address] [place], [address], Insurance Providers Payer Name Payer Address Payer Phone Subscriber Number Group Number Insured Name Patient Relationship to Insured Coverage Start Date Coverage End Date [employer] [place] [employer] [address] [place] [address] [id number] Ashley Mendieta Self - patient is the insured Medical (General) History Medical History History ICD Code Arthritis Back,Hip,and Knee pain Cholesterol Cancer Diabetic Gout Measles Mumps Chicken pox Hypertension Neuropathy Osteoporosis Surgical History Surgery Date(Month/Year) tonsillectomy section 1971 laproscopy 1975 neck surgery 2000 back surgery 2007 ,2013 right hip replacement 2013 breast surgery TYRA 2014
--- OUTSIDE RECORDS SUMMARY | 2024-09-09 13:49 | XMS_ITS ---
Author Organization [facility] Address [address] [facility] [place] [address] Care Team Providers Care Kennel Manager Dog Track Name Role Phone Maury HERNANDEZ, Savannah Sanchez Primary Care Provider Un available Humza Restrepo Unavailable [phone] Allergies Allergen (clinical drug ingredient) Drug/Non Drug [...] Ordered Date Performed Result Body Sit e 48147-PRPSVDF NAIL, 6 OR MORE 10/20/2023 N/A 17275-YQUG SKIN LESIONS, OVER 4 10/20/2023 N/A Encounters Encounter Location Date Provider Diagnosis [facility] [place] [address] [place] [address] 10/20/2023 Humza Restrepo Type 2 diabetes mellitus [...] INSTRUCTIONS.pdf) Pending Test Test Name Order Date 40623-SOYFVWH NAIL, 6 OR MORE 10/20/2023 82249-NGFU SKIN LESIONS, OVER 4 10/20/19 24 Next Appt Details Follow Up: 1 Year, Reason: Provider Name:Humza Amanda Restrepo , 10/18/2024 11:00:00 AM, [address] [place], [address], Procedure Notes * Category Sub-Category Detail Notes [...] as necessary. Patient chooses, no pharmaceutical tx (57998) Keratoma Treatment Parring or Cutting o f Benign Hyperkeratotic Lesion(s) 89197 ( >4 Lesions) - The Benign hyperkeratotic lesions, as described above were pared, and/or cut utilizing a sterile #15 blade, tissue nippers, and/or dremel Progress Notes * Chio CAMPOB: 0 (74 yo F)Acc No.[id number]:10/20/2023 Progress Note Patient:?CONRADO Ashley Provider:?Humza Restrepo DPM :1950???Age:73 Y???Sex:Female D ate:10/20/2023 Address:[address] [place], [place] [id number] Pcp:Adonis Shelton Subjective: * Chief Complaints: * [...] as necessary. Patient chooses, no pharmaceutical tx (70001).?Keratoma Treatment:?Parring or Cutting of Benign Hyperkeratotic Lesion(s)?76076 ( >4 Lesions) - The Benign hyperkeratotic lesions, as described above were pared, and/or cut utilizing a sterile #15 blade, tissue nippers, and/or dremel.? * Procedure Codes:?31153 DEBRI DE NAIL, 6 OR MORE, Modifiers: XS 88874 TRIM SKIN LESIONS, OVER 4, Modifiers: XS [...] Restrepo DPM Date:?2023 Generated for Dania villavicencio/Nas/Ivelisse on:?09/09/2024 01:48 PM EST History and Physical Notes * [...]
--- OUTSIDE RECORDS SUMMARY | 2024-09-09 13:49 | XMS_ITS | Clinical Summary ---
Author Organization [facility] Address [address] [place] [address] Phone Care Team Providers Care Platinumsmith Name Role Phone Román Mendiola MD Primary Care Provider [phone] Allergies No known active allergies Medications Cardwell-3 Fatty Acids (Fish Oil Cardwell-3) 1000 MG capsule Take 2 capsules by [...] patient's age to complete this topic Insurance [facility] Care Teams Platinumsmith Relationship Specialty Start Date End Date Román Mendiola MD [facility] [place] [address] PCP - General 07/20/20
== END 2024-09-09 13:38 | disposition home or self-care (01) ==
PROVIDERS: PCP Internal Medicine; Visit Provider Internal Medicine
DX: N39.46 Mixed incontinence (principal); E78.2 Mixed hyperlipidemia; E11.29 Type 2 diabetes mellitus with other diabetic kidney complication; E11.42 Type 2 diabetes mellitus with diabetic polyneuropathy; I10 Essential (primary) hypertension

== ENCOUNTER → 2024-09-09 11:35 | Outpatient (BNVA) | payer MEDICARE, SELFPAY | PROVIDERS: PCP Internal Medicine; Visit Provider Internal Medicine | DX: N39.46 Mixed incontinence (principal); E78.2 Mixed hyperlipidemia; E11.29 Type 2 diabetes mellitus with other diabetic kidney complication; E11.42 Type 2 diabetes mellitus with diabetic polyneuropathy; I10 Essential (primary) hypertension | CPT/HCPCS: 96127; 99212 ==

== ENCOUNTER 2024-11-11 10:40 | Outpatient (AMB) | payer MEDICARE, SELFPAY ==
--- NOTE | 2024-11-11 10:58 | MHC.OFFVIS ---
Intake Visit Reasons: mixed incontinence Intake Note: New patient presents today for initial visit for mixed incontinence Urology Medication:Allopurinol, Oxybutynin Blood Thinner:Aspirin Antibiotic Allergies:None PVR:78ml Allergies No Known Allergies Allergy (Mild, Verified 11/11/24 12:12) NONE Medication List - Last Reconciled 11/11/24 by CINDY Frankel acetaminophen ER 650 mg PO Q8H PRN allopurinol 300 mg PO DAILY aspirin 81 mg PO DAILY blood sugar diagnostic (FreeStyle Lite Strips) Test blood sugar once a day blood-glucose meter As directed cholecalciferol (vitamin D3) (Vitamin D3) 50 mcg PO DAILY gabapentin 300 mg PO BID hydrochlorothiazide 12.5 mg PO DAILY lancets As directed lisinopril 30 mg PO DAILY metformin 1,000 mg PO BID 90 days metoprolol succinate ER 25 mg PO BEDTIME multivitamin 1 cap PO DAILY omega 5-htv-vhg-fish oil 1,200 (144-216) mg (Fish Oil) 1 cap PO TID oxybutynin chloride ER 10 mg PO DAILY pravastatin 20 mg PO DAILY HPI Comments Details: Ashley is a 74-year-old female patient of Dr. Mendiola was accompanied by her at today's office visit. 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 She presents to the office today as a new patient for mixed urinary incontinence. In discussion with the patient today she reports symptoms have been present for quite some time however feels they are worsening as she has most recently needed to utilize adult diapers due to her ongoing issues of urinary and fecal incontinence. She describes episodes of fecal incontinence approximately 1 time per week. She reports mixed urinary incontinence and feels this is due to her decreased mobility. We discussed at length potential causes of these issues as well as further treatment options and risks and benefits of these treatment options. Unable to obtain urine for urinalysis today as patient unable to void however PVR 78 mL. She reports having started oxybutynin with her PCP and does feel this has been mildly helpful however is experiencing extreme dry mouth. We discussed in office cystoscopy and or urodynamics for further assessment evaluation. We also discussed obtaining retroperitoneal ultrasound for further assessment evaluation. All questions were answered. She denies hematuria, dysuria, foul-smelling urine, flank pain, fever, and or chills. She otherwise offers no other issues or concerns at this time. In review of patient's chart it appears last A1c 09/03 6.0. [facility] Medical History Mixed incontinence urge and stress History of breast cancer History of gout Chronic kidney disease Lumbosacral radiculopathy due to degenerative joint disease of spine Thoracic disc herniation Cervical stenosis of spinal canal Osteoarthritis of multiple joints Peripheral venous insufficiency Type 2 diabetes mellitus with polyneuropathy Diabetes mellitus with kidney complication, without long-term current use of insulin Mixed dyslipidemia Osteopenia Surgical History History of right hip replacement H/O laparoscopy H/O section History of tonsillectomy H/O lumpectomy Family History Father Insulin dependent diabetes mellitus Mother HTN (hypertension) Stroke Brother HTN (hypertension) Brother No problems noted. Son No problems noted. Social History Housing: House Alcohol intake: never Patient Tobacco Use Status: Former Tobacco user e-Cigarette/Vaping Use: Never Used Second Hand Smoke Exposure: No Current occupational status: retired Cognitive needs: No Hearing needs: No Vision needs: No Review of Systems Eyes Reports no additional complaints ENT Reports no additional complaints Card Reports as per HPI Resp Reports no additional complaints GI Reports no additional complaints Reports as per HPI Musc Reports as per HPI Skin/Breast Reports as per HPI Neuro Reports as per HPI Psych Reports no additional complaints Endo Reports as per HPI Physical Exam Const General: cooperative, comfortable, no acute distress, well developed, alert and awake Nutritional Appearance: overweight Orientation/consciousness: patient oriented x3 Limitations: wheelchair HEENT Head: Yes normal to inspection, Yes normocephalic and Yes atraumatic Ears: hearing grossly normal bilaterally Eyes General: appearance normal, both eyes and all related structures Neck Neck: Yes normal visual inspection and Yes trachea midline Chest Chest palpation & inspection: normal inspection of the chest Resp Effort & Inspection: normal respiratory effort and able to speak in complete sentences Cardio Rate: regular rate GI Inspection: Yes normal to inspection General: Yes no CVA tenderness Back/Spine/Pelvis Back: no CVA tenderness Skin General skin exam: no rashes or lesions noted Neuro General: patient oriented x3 Extrem General: Yes normal to inspection Psych Appearance: grossly normal and well kempt Mental Status: mental status grossly normal Speech and movement: Normal speech and movement present and Clear speech present Affect: normal affect Attitude: cooperative Thought process: Normal thought process present Thought content: Normal thought content present Insight: Fair insight present (Psych) Judgement: Fair judgement present (Psych) Assessment & Plan Assessment & Plan (1) Mixed incontinence urge and stress: Code(s): N39.46 - Mixed incontinence Category: Medical Plan Unable to obtain urine for urinalysis as patient unable to void. PVR 78mls. We discussed at length potential causes and treatment options of mixed urinary incontinence patient is experiencing. Stop oxybutynin. Start Myrbetriq as discussed and prescribed. We discussed the importance of timed/scheduled voiding given decreased mobility. We discussed potential near future in office urodynamics and or in office cystoscopy for further assessment evaluation. Will obtain retroperitoneal ultrasound for further assessment evaluation. Follow-up in 1-3 months with imaging and PVR; or sooner with any issues, concerns, and or questions. Orders: Orders AMB Urinalysis Automated Today Z13.9 - Encounter for screening, unspecified AMB Post Void Residual by ultrasound Today N39.46 - Mixed incontinence US retroperitoneal comp Today N39.46 - Mixed incontinence Medications: New mirabegron ER (Myrbetriq) 25 mg PO DAILY 30 days 30 tabs 3RF N30.10 - Interstitial cystitis (chronic) without hematuria, N32.81 - Overactive bladder, R35.1 - Nocturia, R39.15 - Urgency of urination Discontinued oxybutynin chloride ER Discontinued Reason: Doctor's Order 10 mg PO DAILY 30 tabs 5RF N39.46 - Mixed incontinence Patient Instructions: The patient had an opportunity to ask questions regarding the treatment plan. All questions were answered. Physical exam, labs, and imaging were discussed and reviewed in detail. As well as risks, benefits, and discussion of treatment choices. No major barriers to understanding were identified. The patient expressed understanding and agreement with the above treatment plan. The patient was made aware they should contact our office by phone for worsening of their current condition, the appearance of new symptoms, or with any questions or concerns. Compliance is encouraged with any medications and follow up testing that is ordered. It is a privilege to be allowed the opportunity to participate in? your urological care.? Again, if you have any questions or concerns If you have any questions or concerns please do not hesitate to contact me. The office is [phone]. This note is constructed using voice recognition software. While every effort has been made to ensure accuracy biostatistician errors may have been included. Yours sincerely, CINDY Frankel Coding Level of Care Code New Pt Level 4 (34655) Diagnoses Mixed incontinence urge and stress N39.46
--- OUTSIDE RECORDS SUMMARY | 2024-11-11 12:11 | XMS_ITS ---
Author Organization [facility] Address [address] [place] [address] Care Team Providers Care Media Developer Name Role Phone Maury HERNANDEZ, Savannah Sanchez Primary Care Provider Un available Humza Restrepo Unavailable [phone] Allergies Allergen (clinical drug ingredient) Drug/Non Drug [...] Ordered Date Performed Result Body Sit e 16787-UWCWHFM NAIL, 6 OR MORE 10/20/2023 N/A [id number] SKIN LESIONS, OVER 4 10/20/2023 N/A Encounters Encounter Location Date Provider Diagnosis [facility] [address] [place] [address] 10/20/2023 Humza Restrepo Type 2 diabetes mellitus [...] INSTRUCTIONS.pdf) Pending Test Test Name Order Date [id number] NAIL, 6 OR MORE 10/20/2023 [id number] SKIN LESIONS, OVER 4 10/20/19 24 Next Appt Details Follow Up: 1 Year, Reason: Provider Name:Humza Restrepo , 10/21/2025 11:00:00 AM, [address] [place], [address], Procedure Notes * Category Sub-Category Detail Notes [...] as necessary. Patient chooses, no pharmaceutical tx (18689) Keratoma Treatment Parring or Cutting o f Benign Hyperkeratotic Lesion(s) 87236 ( >4 Lesions) - The Benign hyperkeratotic lesions, as described above were pared, and/or cut utilizing a sterile #15 blade, tissue nippers, and/or dremel Progress Notes * Chio CAMPOB: 0 (74 yo F)Acc No.[id number]:10/20/2023 Progress Note Patient:?CONRADO Ashley Provider:?Humza Restrepo DPM :1950???Age:73 Y???Sex:Female D ate:10/20/2023 Address:[address] [place], [place] [id number] Pcp:Adonis Shelton Subjective: * Chief Complaints: * [...] as necessary. Patient chooses, no pharmaceutical tx (99365).?Keratoma Treatment:?Parring or Cutting of Benign Hyperkeratotic Lesion(s)?40245 ( >4 Lesions) - The Benign hyperkeratotic lesions, as described above were pared, and/or cut utilizing a sterile #15 blade, tissue nippers, and/or dremel.? * Procedure Codes:?65508 DEBRI DE NAIL, 6 OR MORE, Modifiers: XS 69742 TRIM SKIN LESIONS, OVER 4, Modifiers: XS [...] Restrepo DPM Date:?2023 Generated for Dania villavicencio/Nas/Ivelisse on:?11/11/2024 12:10 PM EDT History and Physical Notes * HPI (History [...] , No Charcot collapse/destruction noted at [facility] FOOTWEAR EVALUATION: worn, OT were inspe cted and noted to be severely worn , [...]
--- OUTSIDE RECORDS SUMMARY | 2024-11-11 12:11 | XMS_ITS | Clinical Summary ---
Author Organization [facility] Address [address] [place] [address] Phone Care Team Providers Care Terminal Supervisor Name Role Phone Román Mendiola MD Primary Care Provider [phone] Allergies No known active allergies Medications Medway-3 Fatty Acids (Fish Oil [place]-3) 1000 MG capsule Take 2 capsules by [...] 09/10/2020 Renal insufficiency 09/10/2020 Obesity 10/26/2018 Immunizations Immunization Administration Dates Next Due Influenza (IM) Preservative [...] Comments Breast Cancer Screening 1950 Pneumococcal Vaccine: 50+ Years (1 of 2 - PCV) 1969 Colorectal Cancer Screening: Annual FOBT 1999 Colorectal Cancer Screening: Colonoscopy 1999 Colorectal Cancer Screening: Sigmoidoscopy 1999 Diabetes: Hemoglobin A1C 03/16/2021 Diabetes: Ophthalmology Exam 03/16/2021 Diabetes: Pedal Pulse Checked 03/16/2021 Diabetes: Sensory Foot Exam 03/16/2021 Diabetes: Visual Foot Exam 03/16/2021 Influenza Vaccine (Season Ended) 2025 03/29/2021, 05/18/2018, 03/15/2017 Hepatitis B Vaccine Aged Out No longe r eligible based on patient's age to complete this topic Insurance [facility] Care Teams Terminal Supervisor Relationship Specialty Start Date End Date Román Mendiola MD [facility] [place] [address] PCP - General 07/20/20
--- OUTSIDE RECORDS SUMMARY | 2024-11-11 12:11 | XMS_ITS ---
Author Organization [facility] Address [address] [facility] [place] [address] Care Team Providers Care Director State Pharmacy Name Role Phone Maury HERNANDEZ, Savannah Sanchez Primary Care Provider Un available Humza Restrepo Unavailable [phone] Allergies Allergen (clinical drug ingredient) Drug/Non Drug Allergy documented on EMR Reaction Allergy Type Onset Date Status Adhesive Unknown Allergy Active REASON FOR VISIT At Risk Footcare, Toe Irritation Medications Medication SIG (Take, Route, Frequency, Duration) Notes Start Date End Date Status Fish Oil Active Aspir-81 Active Allopurinol 300 MG Orally Once a day Active Tylenol Active Extra Depth Orthopedic Shoes (1 Pair) with Customized Heat Molded Multidensity Innersoles (3 Pair) as directed Dx: NIDDM/Polyneuropathy (E11.42), Hammertoe Foot Deformity (M20.41,M20.42), Preulcerative Skin Lesion(s) (L85.1 Active Advil Unknown Letrozole 2.5 MG Orally Once a day Not-Taking Lantus SoloStar 10 units QD Not-Taking Vitamin D3 Active Pravastatin Sodium 20 MG Orally Once a day Active Lisinopril 30 MG Orally Once a day Active hydroCHLOROthiazide 12.5 MG 1 capsule Or ally Once a day Active Multivitamin Active Metoprolol Succinate 25 MG Orally Active metFORMIN HCl 1000 MG 1 tablet with meal s Orally Twice a day Active Gabapentin 300 MG 1 capsule Orally BID Active Social History Tobacco Use: Social History Observation Description Date Details (start date - stop date) Never Smoker NA - NA Tobacco use other than smoking: Question Answer Notes Are you an other tobacco user? No Tobacco Control (Standard) Question Answer Notes Tobacco use: Nonsmoker Vital Signs Height 5ft5in in 10/18/2024 Weight 256 lbs 10/18/2024 BMI 42.6 kg/m2 10/18/2024 Blood pressure systolic 130 mm Hg 10/19/19 25 Blood pressure diastolic 75 mm Hg 025 Procedures Procedure Date Ordered Date Performed Result Body Sit e 61129-HGZGWTR NAIL, 6 OR MORE 10/18/2024 N/A 30761-REWJ SKIN LESIONS, OVER 4 10/18/2024 N/A Encounters Encounter Location Date Provider Diagnosis [facility] [address] [place] [address] 10/18/2024 Humza Restrepo Type 2 diabetes mellitus with diabetic polyneuropathy E11.42 ; Tinea unguium B35.1 ; Other hammer toe(s) (acquired), right foot M20.41 and Other hammer toe(s) (acquired), left foot M20.42 Assessments Encounter Date Diagnosis (ICD Code) Assessment Notes Treatment Notes Treatment Clinical Notes Section Notes 10/18/2024 Type 2 diabetes mellitus with diabetic polyneuropathy (ICD-10 - E11.42) 10/18/2024 Tinea unguium (ICD-10 - B35.1) 10/18/2024 Other hammer toe(s) (acquired), right foot (ICD-10 - M20.41) Patient Educated with: DIABETIC FOOT CARE INSTRUCTIONS. pdf (DIABETIC FOOT CARE INSTRUCTIONS. pdf) 10/18/2024 Other hammer toe(s) (acquired), left foot (ICD-10 - M20.42) Plan Of Treatment Medication Medication Name Sig Start Date Stop Date Notes Extra Depth Orthopedic Shoes (1 Pair) with Customized Heat Molded Multidensity Innersoles (3 Pair) as directed Dx: NIDDM/Polyneuropathy (E11.42), Hammertoe Foot Deformity (M20.41,M20.42), Preulcerative Skin Lesion(s) (L85.1 Treatment Notes Assessment Notes Other hammer toe(s) (acquired), right fo ot Patient Educated with: DIABETIC FOOT CARE INSTRUCTIONS.pdf (DIABETIC FOOT CARE INSTRUCTIONS.pdf) Pending Test Test Name Order Date [id number]-OQTEVTY NAIL, 6 OR MORE 10/18/2024 87488-UKIV SKIN LESIONS, OVER 4 10/19/19 Next Appt Details Follow Up: 1 Year, Reason: Provider Name:Humza Restrepo , 10/21/2025 11:00:00 AM, [address] [place], [address], Procedure Notes * Category Sub-Category Detail Notes Debride Nail 6-10 Nail debridement Due to the cl inical pathology outlined in the exam findings, performance of this nail treatment is medically necessary as its management by an unskilled/untrained nonprofessional would put this patients foot and overall health at risk. Therefore, debridement to affected nail(s), as described in exam ( TA, T1, T2, T3, T4, T5, T6, T7, T8, T9 ), was performed exclusively by the physician of record to reduce/remove overall nail length, girth, thickness, subungual debris, and necrotic tissue, by manual and/or electrical means through the use of a nail nipper and/or dremel-type sugar grinder, to a more viable healthy nail plate or bed tissue 6-10 nails in total. Silver nitrate was used for any petechial bleeding as necessary. Definitive antifungal treatment options, both pharmaceutical and surgical, have been reviewed and discussed with the patient. The patient solely prefers the use of intermittent/as needed professional debridement services for their nail condition and understands the need for additional periodic treatments to maintain effectiveness in symptomatic relief - 80692 Keratoma Treatment Parring or Cutting o f Benign Hyperkeratotic Lesion(s) (-57) More than 4 Lesions - Due to the at risk nature of the patients medical condition as documented in the exam findings, performance of this keratoderma treatment is medically necessary as its management by an unskilled/untrained nonprofessional would put this patients foot and overall health at risk. Therefore, the benign hyperkeratotic lesions, (6) in total, locations as stated and described in the exam ( Medial, IPJ, TA, Medial, IPJ, T5, SUB MTH (s), 1, B/L , Plantar, Heel(s), B/L ), were pared, and/or cut utilizing a sterile 15 blade, tissue nippers, and/or power dremel instrumentation by the physician of record - 89245 Progress Notes * Carrillo CAMP: 0 (74 yo F)Acc No.[id number]:10/18/2024 Progress Note Patient:Ashley BUTLER Provider:?Humza Restrepo DPM :1950???Age:74 Y???Sex:Female D ate:10/18/2024 Address:[address] [place] [address], [id number] Pcp:Adonis Shelton Subjective: * Chief Complaints: * ???At Risk FootcareToe Irrit ation * HPI: ???At Risk footcare:?Pt States Last PCP Visit:?Date?06/13/2024 ???Toe pain:?Location:?B/L feet.?Duration:?several years.?Course:?worse.?Aggravated by:?shoes, any pressure.?Treatments:?change [...] Unspecified essential hypertension.? * Social History:?Tobacco Use:?Tobacco use other than smoking?Are you an other tobacco user??No ?Tobacco Control (Standard)?Tobacco use:?Nonsmoker ???Miscellaneous:?Caffeine: yes, surendra milk, 1/2 can soda [...] Tablet Orally Once a day Vitamin D3 Extra Depth Orthopedic Shoes (1 Pair) with Customized Heat Molded Multidensity Innersoles (3 Pair) as directed Dx: NIDDM/Polyneuropathy (E11.42), Hammertoe Foot Deformity (M20.41,M20.42), Preulcerative Skin Lesion(s) (L85.1 Taking Tylenol Taking Allopurinol 300 MG Tablet [...] Orally Once a day Taking Vitamin D3 Taking Extra Depth Orthopedic Shoes (1 Pair) with Customized Heat Molded Multidensity Innersoles (3 Pair) as directed Dx: NIDDM/Polyneuropathy (E11.42), Hammertoe Foot Deformity (M20.41,M20.42), Preulcerative Skin Lesion(s) (L85.1 Not-Taking/PRNLantus SoloStar 10 units QD Letrozole 2.5 MG Tablet Orally Once a day Not-Taking/PRN Lantus SoloStar 10 units QD Not-Taking/PRN Letrozole 2.5 MG Tablet Orally Once a day UnknownAdvil Medication List reviewed and reconciled with the patientUnknown Advil Medication List reviewed and reconciled with the patient * Allergies:?Adhesiveyes[Aller gies Verified] Objective: * Vitals:?Ht: 5ft5in, Wt:256, BMI:42.6, Shoe size: 9.5, BP:130/75mm Hg, BS: not taken, Ht-cm: 165.1 cm, Wt-k.12 kg. * ???Past Orders: ???Lab:HEMOGLOBIN A1C (GLYCO HEMOGLOBIN) (Order Date - 06/09/2024) (Collection Date & Time - 06/09/2024 10:53 AM) ? Value Reference Range ?HEMOGLOBIN A1C % (HH) 6.0 * Examination: ???Ophthalmology Referral: ?DIABETES EYE EXAM?Procedure Performed:?Yes ?Date of Exam Performed?11/22/2023 ?Diabetic Retinopathy Screening:?Yes ?Retinal Screening Performed:?Yes ?Findings of Diabetic Eye Exam:?no retinopathy?Neurological: ?SENSORY:?Neurological exam demonstrates, reduced light touch sensation, reduced sharp/dull pin prick discrimination, B/L, 5.07 monofilament test performed at plantar aspects of 5 varied sites per foot shows sensation, reduced , B/L, Pt STILL relates, pins and needles sensation, paresthesia, shooting sensation, tingling, at rest, B/L.?Nails: ?NAILS are:?Elongated, overgrown, dystrophic, lytic, greater than 3mm thick, discolored and friable with crumbly malodorous subungual debris , TA, T1, T2, T3, T4, T5, T6, T7, T8, T9.?Dermatologic: ?SKIN FINDINGS:?Skin exam reveals Keratotic lesion(s) located at, Medial, IPJ, TA, Medial, IPJ, T5, SUB MTH (s), 1, B/L , Plantar, Heel(s), B/L .?Orthopedic: ?MUSCLE STRENGTH:?5/5 all groups in a symmetrical fashion , B/L.?GAIT ABNORMALITY:? appropulsive, walker-assisted.?FOOT MORPHOLOGY:? Pes Planus structure, No Charcot collapse/destruction noted at MTJ.?DIGITAL DEFORMITIES:?Digital contracture, PIPJ, 2-5 B/L, incompl-reducible to push-up test, no over, nor underlapping,?with evidence of shoe producing skin irritation.?FOOTWEAR EVALUATION:?worn, OT were inspected and noted to be [...] (C):?denies, B/L.?REST PAIN:?denies, B/L.?JUVENTINO'S SIGN:?absent, B/L.?PALPABLE CORDS:?absent, B/L.?General Examination: ?GENERAL APPEARANCE:?Reveals a pleasant, alert, well [...] Exam performed:?Yes ?Visual exam of foot performed:?Yes ?Date?10/18/2024 ?Footwear Evaluation?Footwear Evaluation performed:?Yes??? Assessment: * Assessment: [...] FOOT CARE INSTRUCTIONS.pdf)?? * Procedures:?Debride Nail 6-10:?Nail debridement?Due to the clinical pathology outlined in the exam findings, performance of this nail treatment is medically necessary as its management by an unskilled/untrained nonprofessional would put this patients foot and overall health at risk. Therefore, debridement to affected nail(s), as described in exam (?TA, T1, T2, T3, T4, T5, T6, T7, T8, T9?), was performed exclusively by the physician of record to reduce/remove overall nail length, girth, thickness, subungual debris, and necrotic tissue, by manual and/or electrical means through the use of a nail nipper and/or dremel-type sugar grinder, to a more viable healthy nail plate or bed tissue 6- 10 nails in total. Silver nitrate was used for any petechial bleeding as necessary. Definitive antifungal treatment options, both pharmaceutical and surgical, have been reviewed and discussed with the patient. The patient solely prefers the use of intermittent/as needed professional debridement services for their nail condition and understands the need for additional periodic treatments to maintain effectiveness in symptomatic relief - 31801.?Keratoma Treatment:?Parring or Cutting of Benign Hyperkeratotic Lesion(s)?(-57) More than 4 Lesions - Due to the at risk nature of the patients medical condition as documented in the exam findings, performance of this keratoderma treatment is medically necessary as its management by an unskilled/untrained nonprofessional would put this patients foot and overall health at risk. Therefore, the benign hyperkeratotic lesions, (6) in total, locations as stated and described in the exam (?Medial,?IPJ,?TA,?Medial,?IPJ,?T5,?SUB MTH (s),?1,?B/L?,?Plantar,?Heel(s),?B/L?), were pared, and/or cut utilizing a sterile 15 blade, tissue nippers, and/or power dremel instrumentation by the physician of record - [id number].? * Procedure Codes:?76098 DEBRI DE NAIL, 6 OR MORE, Modifiers: XS 22075 TRIM SKIN LESIONS, OVER 4, Modifiers: XS [...] have encouraged the patient to call the office.?Diabetic Footcare:?The patient was advised against future self nail/callus care due to inherent risks for infection, loss of limb/life given diabetes, neuropathy.?Digital Surgery:?Digital surgery was discussed with the patient, [...] custom heat-molded inserts was dispensed.? ??Screening/Special Tests:?Fall Risk?Screening:?No falls in the past year ?FALLS: Screening for Future Fall Risk?Have you had any falls with injury in the past year??No * Follow Up:?1 Year * Images: * Sign off status: Completed true * Provider:?Humza Restrepo DPM Date:?2024 Generated for Dania villavicencio/Nas/Ivelisse on:?11/11/2024 12:10 PM [...] T5, SUB MTH (s), 1, B/L , Plantar, Heel(s), B/L Orthopedic GAIT ABNORMALITY: appropulsive, walker-as sisted FOOT MORPHOLOGY: Pes Planus structure , No Charcot collapse/destruction noted at CTJ FOOTWEAR EVALUATION: worn, OT were inspe cted [...] Visual exam of foot performed:: Yes Date: 10/18/2024 ORIENTED: person, place, and t juan Footwear Evaluation Footwear Evaluation performe d:: Yes Ophthalmology Referral DIABETES EYE EXAM Procedure Perform ed:: Yes ?Date of Exam Performed: 11/22/2023 Diabetic Retinopathy Screening:: Yes Retinal Screening Performed:: Yes Findings of Diabetic Eye Exam:: no [...] discolored and friable with crumbly malodorous subungual debris , TA, T1, T2, T3, T4, T5, T6, T7, T8, T9
== END 2024-11-11 11:46 | disposition home or self-care (01) ==
LOC: HO.HUSH 10:41
PROVIDERS: PCP Internal Medicine; Visit Provider Nurse Practitioner Family
DX: N39.46 Mixed incontinence (principal)
CPT/HCPCS: 99204

== ENCOUNTER → 2024-11-11 10:40 | Outpatient (BNVA) | payer MEDICARE, SELFPAY | PROVIDERS: PCP Internal Medicine; Visit Provider Nurse Practitioner Family | DX: N39.46 Mixed incontinence (principal) | CPT/HCPCS: 51798; 99202 ==

== ENCOUNTER 2024-12-12 10:49 | Outpatient (AMB) | payer MEDICARE, SELFPAY ==
[2024-12-12 10:57] VITALS: BP 126/60; PULSE 36; O2SAT 94; BMI 44.9
--- NOTE | 2024-12-12 10:57 | HO.NEPHOV ---
Vital Signs 12/12/24 10:57 Height 5 ft 5 in Weight 270 lb BMI 44.9 BP 126/60 Blood Pressure Location Rt brachial Position Sitting Pulse 36 L Pulse Source Pulse Oximeter Pulse Oximetry (%) 94 Oxygen Delivery Method Room Air Intake Visit Reasons: CKD/ 1 year FU/ # not in service [employer] Required: No Accompanied by: Spouse Allergies No Known Allergies Allergy (Mild, Verified 12/12/24 11:04) NONE Medication List - Last Reconciled 12/12/24 by Glenn Gregorio MD acetaminophen ER 650 mg PO Q8H PRN allopurinol 300 mg PO DAILY aspirin 81 mg PO DAILY blood sugar diagnostic (FreeStyle Lite Strips) Test blood sugar once a day blood-glucose meter As directed cholecalciferol (vitamin D3) (Vitamin D3) 50 mcg PO DAILY gabapentin 300 mg PO BID hydrochlorothiazide 12.5 mg PO DAILY lancets As directed lisinopril 30 mg PO DAILY metformin 1,000 mg PO BID 90 days metoprolol succinate ER 25 mg PO BEDTIME mirabegron ER (Myrbetriq) 25 mg PO DAILY 30 days multivitamin 1 cap PO DAILY omega 6-hyx-epl-fish oil 1,200 (144-216) mg (Fish Oil) 1 cap PO TID pravastatin 20 mg PO DAILY HPI Comments Details: . Ashley is a pleasant 73-year-old woman with a history of longstanding diabetes mellitus hypertension with CKD. She is a history of chronic NSAID use in the past. 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 Her baseline creatinine is around 1.2 mg/dL. She is here for annual follow-up. He has no specific complaints today. Jardiance has been prescribed but she is unable to take it due to the expense factor. 12/12/24 74-year-old female presenting with follow-up for chronic kidney disease management. Her chronic kidney disease remains stable, corroborated by consistent creatinine levels observed over the past year. The patient's type 2 diabetes mellitus is currently under good control, maintained with adjusted metformin dosages. She also manages her hypertension with lisinopril, which supports renal health. She experiences stress urinary incontinence and is under treatment with Mirabegron as per her urologist's directions. Persistent leg edema is managed with hydrochlorothiazide. Regular follow-ups with her primary care provider ensure continuity of her care plan. [facility] Medical History Mixed incontinence urge and stress History of breast cancer History of gout Chronic kidney disease Lumbosacral radiculopathy due to degenerative joint disease of spine Thoracic disc herniation Cervical stenosis of spinal canal Osteoarthritis of multiple joints Peripheral venous insufficiency Type 2 diabetes mellitus with polyneuropathy Diabetes mellitus with kidney complication, without long-term current use of insulin Mixed dyslipidemia Osteopenia Surgical History History of right hip replacement H/O laparoscopy H/O section History of tonsillectomy H/O lumpectomy Family History Father Insulin dependent diabetes mellitus Mother HTN (hypertension) Stroke Brother HTN (hypertension) Brother No problems noted. Son No problems noted. Social History Housing: House Alcohol intake: never Patient Tobacco Use Status: Former Tobacco user e-Cigarette/Vaping Use: Never Used Second Hand Smoke Exposure: No Current occupational status: retired Cognitive needs: No Hearing needs: No Vision needs: No Physical Exam Vital Signs: Last Vital Signs BP 126/60 12/12/24 10:57 BMI result Body Mass Index 44.9 Awake. Comfortable. Neck is supple. Mucosa moist. Lungs bilateral scattered rhonchi. Heart S1-S2 heard no gallop. Abdomen soft. Extremities no edema. No involuntary movements. No myoclonus. Results Reviewed Nephrology Results: Sodium 141 mmol/L (135-145) 09/04/24 Potassium 4.6 mmol/L (3.3-5.1) 09/04/24 Chloride 108 mmol/L (96-108) 09/04/24 Carbon Dioxide 25 mmol/L (22-29) 09/04/24 BUN 23 mg/dL (9-16) H 09/04/24 Creatinine 1.14 mg/dL (0.5-1.4) 09/04/24 Calcium 9.3 mg/dL (8.4-10.2) 09/04/24 Urine Creatinine 132.26 mg/dL 09/04/24 Assessment & Plan Assessment & Plan (1) CKD (chronic kidney disease) stage 3, GFR 30-59 ml/min: Code(s): N18.30 - Chronic kidney disease, stage 3 unspecified Category: Medical (2) Chronic kidney disease: Code(s): N18.9 - Chronic kidney disease, unspecified Category: Medical (3) Type 2 diabetes mellitus with polyneuropathy: Code(s): E11.42 - Type 2 diabetes mellitus with diabetic polyneuropathy Category: Medical (4) Essential hypertension: Code(s): I10 - Essential (primary) hypertension Category: Medical Plan . Ashley is a pleasant elderly woman with a history of CKD in a setting of longstanding diabetes mellitus hypertension and chronic NSAID use. Baseline serum creatinine is around 1.2 mg/dL. At present renal function is close to baseline. Blood pressure is well controlled. Goal is to slow the progression of renal disease Continue to avoid NSAIDs. Maintain A1c less than 7%. Maintain blood pressure less than 130/80 mm Hg. She should continue with low-salt diet and she will also benefit from weight loss Agree with adding Jardiance for cardiorenal protection. However she is reluctant to start this medication. I have reassured her that it is safe to start Jardiance from a renal standpoint. She is still concerned about the cost issues and she will discuss with her PCP regarding this. No changes were made today. Orders: Orders Basic Metabolic Panel 1 Year N18.30 - Chronic kidney disease, stage 3 unspecified UA and rflx microscopic 3 Weeks N18.30 - Chronic kidney disease, stage 3 unspecified Creatinine Urine 3 Weeks N18.30 - Chronic kidney disease, stage 3 unspecified Total Protein Urine Random 3 Weeks N18.30 - Chronic kidney disease, stage 3 unspecified Coding Level of Care Code Est Pt Level 4 (04122) Diagnoses CKD (chronic kidney disease) stage 3, GFR 30-59 ml/min N18.30 Chronic kidney disease N18.9 Type 2 diabetes mellitus with polyneuropathy E11.42 Essential hypertension I10
--- OUTSIDE RECORDS SUMMARY | 2024-12-12 12:44 | XMS_ITS | Patient Health Record ---
Author Organization [facility] Address [address] [place] [address] Care Team Providers Care Under Trimmer Name Role Phone Maury HERNANDEZ, Savannah Sanchez Primary Care Provider Un available Humza Restrepo Unavailable [phone] Allergies Allergen (clinical drug ingredient) Drug/Non Drug Allergy documented on EMR Reaction Allergy Type Onset Date Status Adhesive Unknown Allergy Active Results Component Value Reference Range Notes HEMOGLOBIN A1C (GLYCOHEMOGLO BIN) Reviewed date:10/18/2024 10:53:44 AM Interpretation: Performing Lab: Notes/Report: HEMOGLOBIN A1C % (HH) 6.0 Reason For Referral No Information Medications Medication SIG (Take, Route, Frequency, Duration) Notes Start Date End Date Status Metoprolol Succinate 25 MG Orally Active Extra Depth Orthopedic Shoes (1 Pair) with Customized Heat Molded Multidensity Innersoles (3 Pair) as directed Dx: NIDDM/Polyneuropathy (E11.42), Hammertoe Foot Deformity (M20.41,M20.42), Preulcerative Skin Lesion(s) (L85.1 Active metFORMIN HCl 1000 MG 1 tablet with meal s Orally Twice a day Active Lisinopril 30 MG Orally Once a day Active hydroCHLOROthiazide 12.5 MG 1 capsule Or ally Once a day Active Gabapentin 300 MG 1 capsule Orally BID Active Advil Unknown Fish Oil Active Letrozole 2.5 MG Orally Once a day Not-Taking Aspir-81 Active Lantus SoloStar 10 units QD Not-Taking Allopurinol 300 MG Orally Once a day Active Tylenol Active Vitamin D3 Active Pravastatin Sodium 20 MG Orally Once a day Active Multivitamin Active Immunizations Vaccine Route Administration Date Status Comme [facility] COVID-19 Pfizer BioNTech Vaccine Unknown 04/12/2022 Administered 1st 10/14/20 2nd 11/04/20 3rd 05/15/21 Influenza Unknown 03/15/2017 Administered Influenza Unknown 05/18/2018 Administered Influenza Unknown 04/12/2022 Administered Pneumococcal Unknown 05/13/2016 Administered Social History Tobacco Use: Social History Observation Description Date Details (start date - stop date) Never Smoker NA - NA Alcohol Screen Question Answer Notes Did you have a drink containing alcohol in the p ast year? No Points 0 Interpretation Negative Tobacco use other than smoking: Question Answer Notes Are you an other tobacco user? No Tobacco Control (Standard) Question Answer Notes Tobacco use: Nonsmoker Problems Problem Type SNOMED Code ICD Code Onset Dates Problem Status W/U Status Risk Notes Problem Acquired hammer toe of right foot (6832179791545032 ) Other hammer toe(s) (acquired), right foot (M20.41) Active confirmed Problem Acquired hammer toe of left foot (5202043034301343 ) Other hammer toe(s) (acquired), left foot (M20.42) Active confirmed Problem Polyneuropathy due to type 2 diabetes mellitus (358653125) Type 2 diabetes mellitus with diabetic polyneuropathy (E11.42) Active confirmed Vital Signs Blood pressure diastolic 75 mm Hg 10/18/2024 Height 5ft5in in 10/18/2024 Blood pressure systolic 130 mm Hg 10/18/2024 Weight 256 lbs 10/18/2024 BMI 42.6 kg/m2 10/18/2024 Procedures Procedure Date Ordered Date Performed Result Body Sit e 72754-MVQNVDA NAIL, 6 OR MORE 10/18/2024 N/A 83852-SXTS SKIN LESIONS, OVER 4 10/18/2024 N/A Encounters Encounter Location Date Provider Diagnosis [facility] [address] [place] [address] 10/18/2024 Humza Restrepo Type 2 diabetes mellitus [...] Treatment Pending Test Test Name Order Date 15870-HQQKFMC NAIL, 6 OR MORE 05/18/2018 17863-NVQDUPX NAIL, 6 OR MORE 06/14/2019 00060-SDMOMKI NAIL, 6 OR MORE 05/12/2017 65855-DZDZKFM NAIL, 6 OR MORE 06/16/2020 79477-EAWTUBI NAIL, 6 OR MORE 06/18/2021 36078-FALCOBF NAIL, 6 OR MORE 10/18/2022 06842-LIXXVET NAIL, 6 OR MORE 10/20/2023 90257-PYWWCHG NAIL, 6 OR MORE 10/18/2024 86377-Eojrjhsa Plate 10/18/2022 31536-Prxgbrpi Plate 06/18/2021 70262-Ikpvwhcl Plate 06/16/2020 18181-Rbmsmwtl Plate 06/14/2019 45778-Bsctrjfi Plate Each Additional 12/2018 03360-Jjlyncfc Plate Each Additional 02/2020 68629-DBAL SKIN LESIONS, OVER 4 06/16/20 20 23366-CITG SKIN LESIONS, OVER 4 06/14/20 19 35723-SPXP SKIN LESIONS, OVER 4 06/18/20 21 08815-APJA SKIN LESIONS, OVER 4 10/19/19 23 31877-MYVV SKIN LESIONS, OVER 4 10/20/19 24 24221-ZJEE SKIN LESIONS, OVER 4 10/19/19 25 67275-IYUZ SKIN LESIONS, 2 TO 4 05/12/20 17 38922-RROY SKIN LESIONS, 2 TO 4 05/18/20 18 Next Appt Details Provider Name:Humza Restrepo , 10/21/2025 11:00:00 AM, [address] [place] [address], [place], [address], Insurance Providers Payer Name Payer Address Payer Phone Subscriber Number Group Number Insured Name Patient Relationship to Insured Coverage Start Date Coverage End Date [employer] [place] [employer]vantage [facility] [address] [facility] [place], [place] [id number] [id number] Ashley Mendieta Self - patient is the insured 4 Medical (General) History Medical History History ICD Code Arthritis Back,Hip,and Knee pain Cholesterol Cancer Diabetic Gout Measles Mumps Chicken pox Hypertension Neuropathy Osteoporosis Surgical History Surgery Date(Month/Year) tonsillectomy section 1970 laproscopy 1975 neck surgery 2001 back surgery 2007 ,2013 right hip replacement 2013 breast surgery [facility]RA 2014
== END 2024-12-12 11:19 | disposition home or self-care (01) ==
LOC: HO.HKA 10:50
PROVIDERS: PCP Internal Medicine; Visit Provider Internal Medicine Hypertension Specialist
DX: I12.9 Hypertensive chronic kidney disease with stage 1 through stage 4 chronic kidney disease, or unspecified chronic kidney disease (principal); E11.22 Type 2 diabetes mellitus with diabetic chronic kidney disease; N18.30 Chronic kidney disease, stage 3 unspecified; E11.42 Type 2 diabetes mellitus with diabetic polyneuropathy
CPT/HCPCS: 99214

== ENCOUNTER → 2024-12-12 10:49 | Outpatient (BNVA) | payer MEDICARE, SELFPAY | PROVIDERS: PCP Internal Medicine; Visit Provider Internal Medicine Hypertension Specialist | DX: E11.22 Type 2 diabetes mellitus with diabetic chronic kidney disease (principal); I12.9 Hypertensive chronic kidney disease with stage 1 through stage 4 chronic kidney disease, or unspecified chronic kidney disease; N18.30 Chronic kidney disease, stage 3 unspecified; E11.42 Type 2 diabetes mellitus with diabetic polyneuropathy | CPT/HCPCS: 99212 ==

== ENCOUNTER 2025-01-07 09:12 | Outpatient (REF) | payer MEDICARE, SELFPAY ==
--- OUTSIDE RECORDS SUMMARY | 2025-01-07 09:46 | XMS_ITS | Clinical Summary ---
Author Organization [facility] Address [address] [place] [address] Phone Care Team Providers Care Field Marketing Coordinator Name Role Phone Román Mendiola MD Primary Care Provider [phone]- [phone] Allergies No known active allergies Medications Elkridge-3 Fatty Acids (Fish Oil Elkridge-3) 1000 MG capsule Take 2 capsules by [...] patient's age to complete this topic Insurance [facility] Care Teams Field Marketing Coordinator Relationship Specialty Start Date End Date Román Mendiola MD [facility] [place] [address] PCP - General 07/20/20
--- OUTSIDE RECORDS SUMMARY | 2025-01-07 09:46 | XMS_ITS | Patient Health Record ---
Author Organization [facility] Address [address] [place] [address] Care Team Providers Care Retail Loan Officer Name Role Phone Savannah Mendiola MD Primary Care Provider Angel Mora Unavailable [phone] Reason For Referral No Information Medications Medication SIG (Take, Route, Frequency, Duration) Notes Start Date End Date Status Colyte w Flavor Packs 240 GM as directed Orally as directed for 1 day(s) 05/16/2015 Active Lantus SoloStar 100 UNIT/ML Subcutaneous Active Centrum Silver Orally Activ e Gemfibrozil 600 MG 1 tablet Orally Twice a day Active metFORMIN HCl 1000 MG 1 tablet with meal s Orally Twice a day Active oxyCODONE HCl 5 MG 1 tablet Orally as needed very rarely Active Aspir-81 81 MG 1 tablet Orally Once a day Active Advil 200 MG 1 tablet as needed Orally prn Active hydroCHLOROthiazide 12.5 MG 1 capsule Or ally Once a day Active Gabapentin 300 MG 1 capsule Orally twice a day Active Lisinopril 30 MG 1 tablet Orally Once a day Active Problems Problem Type SNOMED Code ICD Code Onset Dates Problem Status W/U Status Risk Notes Problem 766832040 Encounter for screening for malignant neoplasm of colon (Z12.11) Active confirmed Problem Screening for malignant neoplasm of rectum (714585764) Encounter for screening for malignant neoplasm of rectum (Z12.12) Active confirmed Problem 99200505 Preprocedural examination (Z01.818) Active confirmed Problem 391596213 Aspirin long-ter m use (Z79.82) Active confirmed Plan Of Treatment Future Test Test Name Order Date COLONOSCOPY 05/14/2015 Insurance Providers Payer Name Payer Address Payer Phone Subscriber Number Group Number Insured Name Patient Relationship to Insured Coverage Start Date Coverage End Date [facility] [address] [facility] [phone] [id number] RYNE COLEMAN Self - patient is the insured Medical (General) History Medical History History ICD Code Colonoscopy 11/11/2002--hype rplastic polyp, diverticulosis, internal hemorrhoids HTN IDDM Gout Neuropathy in UE's from C-spine disc dis ease Denies [place],CVA,Lung disease,renal disease Surgical History Surgery Date(Month/Year) x 1 1971 cervical spine surgery 2000 Right Hip replacement 2012 laparoscopy 1975 tonsils Back surgery Scheduled for bilateral [facility] biopsies 05/15/15 [place] [facility] [place]
--- OUTSIDE RECORDS SUMMARY | 2025-01-07 09:46 | XMS_ITS | Patient Health Record ---
Author Organization [facility] Address [address] [place] [address] Care Team Providers Care Process Control Specialist Name Role Phone Maury HERNANDEZ, Savannah Sanchez Primary Care Provider Un available Humza Restrepo Unavailable [phone] Allergies Allergen (clinical drug ingredient) Drug/Non Drug [...] Immunizations Vaccine Route Administration Date Status Comme [facility] COVID-19 Pfizer BioNTech Vaccine Unknown 04/12/2022 [...] Problem Acquired hammer toe of right foot ([id number] ) Other hammer toe(s) (acquired), right foot (M20.41) Active confirmed Problem Acquired hammer toe of left foot (4944805582146091 ) Other hammer toe(s) (acquired), left foot (M20.42) Active confirmed Problem Polyneuropathy due to type 2 diabetes mellitus (243935818) Type 2 diabetes mellitus with diabetic polyneuropathy (E11.42) Active confirmed Vital Signs Blood pressure diastolic 75 mm Hg 10/18/2024 Height 5ft5in in 10/18/2024 Blood pressure systolic 130 mm Hg 10/18/2024 Weight 256 lbs 10/18/2024 BMI 42.6 kg/m2 10/18/2024 Procedures Procedure Date Ordered Date Performed Result Body Sit e 45222-SUQJYPS NAIL, 6 OR MORE 10/18/2024 N/A 65597-QNRG SKIN LESIONS, OVER 4 10/18/2024 N/A Encounters Encounter Location Date Provider Diagnosis [facility] [place] [address] [place] [address] 10/18/2024 Humza Restrepo Type 2 diabetes mellitus [...] Treatment Pending Test Test Name Order Date 57029-TKDPWJI NAIL, 6 OR MORE 05/18/2018 11240-QTQCWPF NAIL, 6 OR MORE 06/14/2019 20089-RIOZXOV NAIL, 6 OR MORE 05/12/2017 42275-XBSCZAV NAIL, 6 OR MORE 06/16/2020 19795-DAPDZRM NAIL, 6 OR MORE 06/18/2021 58843-VJGXKBW NAIL, 6 OR MORE 10/18/2022 63739-DAPGQBY NAIL, 6 OR MORE 10/20/2023 14064-QPVDTJX NAIL, 6 OR MORE 10/18/2024 32306-Raawndem Plate 10/18/2022 94498-Pudtyhbh Plate 06/18/2021 83001-Rzwvpmrn Plate 06/16/2020 08220-Gpkzxwuk Plate 06/14/2019 71524-Fxbcstro Plate Each Additional 12/2018 38347-Izkeebxy Plate Each Additional 02/2020 47597-VXGC SKIN LESIONS, OVER 4 06/16/20 20 15078-SWXR SKIN LESIONS, OVER 4 06/14/20 19 62580-EHSP SKIN LESIONS, OVER 4 06/18/20 21 84024-ETHT SKIN LESIONS, OVER 4 10/19/19 23 29484-BJKI SKIN LESIONS, OVER 4 10/20/19 24 23593-LLIR SKIN LESIONS, OVER 4 10/19/19 25 90623-BXVI SKIN LESIONS, 2 TO 4 05/12/20 17 77698-MQIL SKIN LESIONS, 2 TO 4 05/18/20 18 Next Appt Details Provider Name:Humza Restrepo , 10/21/2025 11:00:00 AM, [address] [place] [address], [place], [address], Insurance Providers Payer Name Payer Address Payer Phone Subscriber Number Group Number Insured Name Patient Relationship to Insured Coverage Start Date Coverage End Date [employer] [place] Medicare Advantage [facility] [address] [facility], [place] [address] [id number] Ashley Mendieta Self - patient is the insured 4 Medical (General) History Medical History History ICD Code Arthritis Back,Hip,and Knee pain Cholesterol Cancer Diabetic Gout Measles Mumps Chicken pox Hypertension Neuropathy Osteoporosis Surgical History Surgery Date(Month/Year) tonsillectomy section 1970 laproscopy 1975 neck surgery 2001 back surgery 2007 ,2013 right hip replacement 2013 breast surgery TYRA 2014
[2025-01-07 10:51] LABS: Hemoglobin A1C 183.2627 umol/L; Total Hemoglobin (HGBA1C) 4261.1917 umol/L
[2025-01-07 11:24] LABS: Alanine Aminotransferase 23 U/L (0-31); Anion Gap 13 (12-20); Aspartate Amino Transferase 22 U/L (5-31); Blood Urea Nitrogen 27 mg/dL (9-16); Calcium 8.9 mg/dL (8.4-10.2); Carbon Dioxide 22 mmol/L (22-29); Chloride 111 mmol/L (96-108); Cholesterol 161 mg/dL (<200); Estimated Glomerular Filt Rate 49; HDL Cholesterol 44 mg/dL (>40); Potassium 4.2 mmol/L (3.3-5.1); Sodium 142 mmol/L (135-145); Triglycerides 231 mg/dL (<150)
[2025-01-07 11:26] LABS: Total Protein Urine Random 18 mg/dL (<12)
== END 2025-01-07 09:13 | disposition home or self-care (01) ==
LOC: HO.HMGCLDS 09:12
PROVIDERS: PCP Internal Medicine; Referring Provider Internal Medicine Hypertension Specialist; Visit Provider Internal Medicine
DX: E11.42 Type 2 diabetes mellitus with diabetic polyneuropathy (principal); N18.30 Chronic kidney disease, stage 3 unspecified; I10 Essential (primary) hypertension; E11.29 Type 2 diabetes mellitus with other diabetic kidney complication; E78.2 Mixed hyperlipidemia; N39.46 Mixed incontinence
CPT/HCPCS: 36415; 80048; 80061; 82570; 83036; 84156; 84450; 84460

== ENCOUNTER 2025-01-14 11:38 | Outpatient (AMB) | payer MEDICARE, SELFPAY ==
[2025-01-14 11:55] VITALS: BP 122/62; PULSE 43; RESP 20; TEMP 36.7; O2SAT 92; BMI 44.9
--- NOTE | 2025-01-14 11:55 | A.OFFPC_ITS ---
Vital Signs 01/14/25 11:55 Height 5 ft 5 in Weight 270 lb BMI 44.9 BP 122/62 Blood Pressure Location Lt brachial Position Sitting Respiration 20 Pulse 43 L Pulse Source Pulse Oximeter Temp 98.0 F Temp Source Oral Pulse Oximetry (%) 92 Oxygen Delivery Method Room Air Intake Visit Reasons: 3 months f/up - see comments Intake Note: Pt is here today for her 3mo. f/u Allergies No Known Allergies Allergy (Mild, Verified 01/14/25 12:20) NONE Medication List - Last Reconciled 01/14/25 by Savannah Mendiola MD acetaminophen ER 650 mg PO Q8H PRN allopurinol 300 mg PO DAILY aspirin 81 mg PO DAILY blood sugar diagnostic (FreeStyle Lite Strips) Test blood sugar once a day blood-glucose meter As directed cholecalciferol (vitamin D3) (Vitamin D3) 50 mcg PO DAILY gabapentin 300 mg PO BID hydrochlorothiazide 12.5 mg PO DAILY lancets As directed lisinopril 30 mg PO DAILY metformin 1,000 mg PO BID 90 days metoprolol succinate ER 25 mg PO BEDTIME mirabegron ER (Myrbetriq) 25 mg PO DAILY 30 days multivitamin 1 cap PO DAILY omega 0-xlv-adf-fish oil 1,000 (120-180) mg (Fish Oil) 1 cap PO DAILY pravastatin 20 mg PO DAILY Tobacco use date assessed: 01/14/25 Fall risk assessment: No Falls in past year Last assessed Fall Risk: 01/14/25 Dental Screening Dental Screen Date: 01/14/25 Did you have a dental visit in the last 12 months?: No Did you have a dental problem in the last 6 months where you did not have access to dental care?: No Was dental information given to patient?: Patient declined HPI 3 months f/up - see comments HPI Details 74-year-old lady here today for follow-u p on her diabetes mellitus with chronic kidney disease stage III and polyneuropathy , has mixed dyslipidemia and hypertension, here today for her follow-up. Currently on metformin a 1000 mg 1 tablet twice a day and pravastatin 20 mg at bedtime. Fasting labs showed hemoglobin A1c at 6.1%, with fasting lipids within normal limits except for elevated triglycerides. Patient has been taking her medications but has not really been diet compliant and unable to do any meaningful exercise. Currently followed by Urology for her mixed urinary incontinence, and by Dr. Gregorio for her chronic kidney disease. She has sees podiatry on a regular basis and follows with Dr. Brown for diabetes eye screening. [facility] Medical History Mixed incontinence urge and stress History of breast cancer History of gout Chronic kidney disease Lumbosacral radiculopathy due to degenerative joint disease of spine Thoracic disc herniation Cervical stenosis of spinal canal Osteoarthritis of multiple joints Peripheral venous insufficiency Type 2 diabetes mellitus with polyneuropathy Diabetes mellitus with kidney complication, without long-term current use of insulin Mixed dyslipidemia Osteopenia Surgical History History of right hip replacement H/O laparoscopy H/O section History of tonsillectomy H/O lumpectomy Family History Father Insulin dependent diabetes mellitus Mother HTN (hypertension) Stroke Brother HTN (hypertension) Brother No problems noted. Son No problems noted. Social History Housing: House Alcohol intake: never Patient Tobacco Use Status: Former Tobacco user e-Cigarette/Vaping Use: Never Used Second Hand Smoke Exposure: No Current occupational status: retired Cognitive needs: No Hearing needs: No Vision needs: No Questionnaire PHQ-9 Over the last 2 weeks, how often have you been bothered by any of the following problems? 1. Little interest or pleasure in doing things: not at all 2. Feeling down, depressed, or hopeless: not at all 3. Trouble falling or staying asleep, or sleeping too much: not at all 4. Feeling tired or having little energy: several days 5. Poor appetite or overeating: not at all 6. Feeling bad about yourself - or that you are a failure or have let yourself or your family down: not at all 7. Trouble concentrating on things, such as reading the newspaper or watching television: not at all 8. Moving or speaking so slowly that other people could have noticed. Or the opposite - being so fidgety or restless that you have been moving around a lot more than usual: several days 9. Thoughts that you would be better off or of hurting yourself in some way: not at all Total score: 2 Depression Screening Interpretation: Negative Depression Screening Done: Yes 37982 - PHQ-9 Billing: Yes Source: Developed by Drs. Angel Corrigan, Cathy Bernardo, Oliver Zamora and colleagues, with an educational janes from [employer]. Thrive Questionnaire Date Thrive assessed: 09/02/24 I am a: Patient What is your living situation today?: I choose not to answer this question Within the past 12 months, did the food you bought not last and you didn't have the money to get more?: I choose not to answer this question Within the past 12 months, did you worry whether your food would run out before you got money to buy more?: I choose not to answer this question Do you have trouble paying for medicines?: I choose not to answer this question Do you have trouble getting transportation to medical appointments?: I choose not to answer this question Do you have trouble paying your heating and electricity bill?: I choose not to answer this question Do you have trouble taking care of your child, family member or friend?: I choose not to answer this question Do you have trouble with day-to-day activities such as bathing, preparing meals, shopping, managing finances, etc.?: I choose not to answer this question Are you currently unemployed and looking for a job?: I choose not to answer this question Are you interested in more education?: I choose not to answer this question Please select the resources that you would like help with: None Currently or been in a relationship where the following occur: No concerns reported THRIVE Score: 0 AUDIT C Alcohol Use Questionnaire (AUDIT-C) 1. How often do you have a drink containing alcohol?: Never Total Score: 0 JEREMY-7 AMB Questionnaire JEREMY-7 Date JEREMY - 7 assessed: 09/09/24 Source: Developed by Drs. Angel Corrigan, Oliver Lovell and colleagues, with an educational janes from [employer]. Review of Systems Const Denies daytime sleepiness, Denies fatigue, Denies headache(s) and Denies weakness Eyes Reports no additional complaints ENT Reports no additional complaints and Denies headache(s) Card Reports as per HPI Resp Reports no additional complaints and Denies wheezing GI Reports no additional complaints Reports as per HPI Musc Reports as per HPI Skin/Breast Reports as per HPI Neuro Reports as per HPI, Denies headache(s) and Denies weakness Psych Reports no additional complaints Endo Reports as per HPI and Denies fatigue Destin/Lymph Denies easy bruising Aller/Immun Denies seasonal rhinorrhea and Denies wheezing Physical exam (Primary Care) Vital Signs: Last Vital Signs Temp 98.0 F 01/14/25 11:55 Pulse 43 L 01/14/25 11:55 Resp 20 01/14/25 11:55 BP 122/62 01/14/25 11:55 Pulse Ox 92 01/14/25 11:55 Oxygen Delivery Method Room Air 01/14/25 11:55 BMI result Body Mass Index 44.9 Tobacco/Smoking Status: Tobacco use Status Tobacco use date assessed 01/14/25 01/14/25 12:00 Patient Tobacco Use Status Former Tobacco user 01/14/25 12:00 e-Cigarette/Vaping Use Never Used 01/14/25 12:00 PHQ-9: PHQ-9 Score PHQ-9: Total score 2 01/14/25 12:20 Depression Screening Interpretation: Negative Thrive Assessment: Date of Thrive Assessment Date Thrive assessed 09/02/24 01/14/25 12:00 Currently or been in a relationship where the following occur: No concerns rep orted Const General: comfortable and no acute distress Nutritional Appearance: obese morbidly obese Orientation/consciousness: patient oriented x3 Limitations: ambulation with walker HENMT Ears: external ears normal General nose exam: Normal external nose present Mouth: moist mucous membranes Eyes General: appearance normal, both eyes and all related structures Neck Neck: Yes full ROM, Yes no lymphadenopathy and Yes supple Resp Effort & Inspection: normal respiratory effort and able to speak in complete sentences Auscultation: clear to auscultation bilaterally Cardio Rate: regular rate Rhythm: regular rhythm Heart sounds: S1 normal heart sound present and S2 normal heart sound present GI Inspection: Yes obesity Palpation (GI): Soft to palpation, nontender, no guarding and no masses Auscultation: normal bowel sounds Neuro General: patient oriented x3, Normal light touch and pain sensation and no focal motor deficits Cognition (Neuro): normal cognition Gait exam (Neuro): Assisted gait required Gait assisted method: walker Motor exam (neuro): 11/11 motor strength present throughout Extrem General: Yes no joint enlargement, Yes no clubbing, cyanosis or edema and Yes no calf tenderness Psych Affect: normal affect Results Reviewed Results Reviewed: Name: Ashley Hernandez Age/Sex: 74/F : 1950 Unit#: [id number] Attend Dr: Savannah Mendiola MD Re01/07/25 Status: DEP [facility] Disch: SPEC : [id number] MANOHAR: 01/07/25 STATUS: COMP REQ : [id number] RECD: 01/07/[address]: Savannah Mendiola MD COMP: 01/07/25 ENTERED: 01/07/[address] [facility] [address]: ORDERED: Met Prof Fast, AST, ALT, Lipid Panel Test Result Flag Reference Sodium 142 135-145 mmol/L Potassium 4.2 3.3-5.1 mmol/L CL 111 H 96-108 mmol/L CO2 22 22-29 mmol/L Gap 13 12-20 BUN 27 H 9-16 mg/dL Creat 1.10 0.5-1.4 mg/dL eGFR 49 Chronic Kidney Disease: Estimated GFR < 60 mL/min/1.73m2 Severe Kidney Disease: Estimated GFR < 15 mL/min/1.73m2 FBS 135 H 60-99 mg/dL A fasting glucose of 126 mg/dl or greater on more than one occasion is considered diagnostic of diabetes. CA 8.9 8.4-10.2 mg/dL AST (GOT) 22 5-31 U/L ALT (GPT) 23 0-31 U/L Triglyceride 231 H <150 mg/dL Desirable Triglyceride: less than 150 mg/dL Borderline High Triglyceride 150-199 mg/dL High Triglyceride: 200-499 mg/dL Very High Triglyceride: greater than or equal to 5OO mg/dL Cholesterol 161 <200 mg/dL Desirable Cholesterol: less than 200 mg/dL Borderline High Cholesterol: 200-239 mg/dL High Cholesterol: greater than 239 mg/dL LDL Calculated 71 <100 mg/dL Desirable LDL: less than 100 mg/dL Near Optimal/Above Optimal LDL: 110-129 mg/dL Borderline High LDL: 130-159 mg/dL High LDL: 160-189 mg/dL Very High LDL: greater than or equal to 190 mg/dL HDL 44 >40 mg/dL Desirable HDL: greater than 40 mg/dL Note: This HDL assay may give artificially low results in patients with liver disease. Laboratory Tests 01/07/25 09:16 Estimat Average Glucose 128 Hemoglobin A1c % 6.1 H Coding Level of Care Code Est Pt Level 4 (80811) Diagnoses Mixed dyslipidemia E78.2 Diabetes mellitus with kidney complication, without long-term current use of insulin E11.29 Essential hypertension I10 CKD (chronic kidney disease) stage 3, GFR 30-59 ml/min N18.30 Mixed incontinence urge and stress N39.46 Additional Codes PHQ-9 - 57670 - PHQ-9 Billing: Yes ([id number]) Assessment & Plan Assessment & Plan (1) Mixed dyslipidemia: Code(s): E78.2 - Mixed hyperlipidemia Category: Medical Plan: Recent fasting lipids showed elevated triglycerides. Continued on pravastatin 20 mg daily and advised to increase her dose of Cookson 3 fatty acid supplements to 2 capsules daily. Reinforced importance of following a low-cholesterol diet and avoidance of processed foods and junk food (2) Diabetes mellitus with kidney complication, without long-term current use of insulin: Code(s): E11.29 - Type 2 diabetes mellitus with other diabetic kidney complication Category: Medical Plan: Latest hemoglobin is A1c is at 6.1%, continued on metformin a 1000 mg 1 tablet twice a day, followed by Podiatry and gets yearly diabetes retinopathy screening (3) Essential hypertension: Code(s): I10 - Essential (primary) hypertension Category: Medical Plan: Hypertension stable and controlled on present treatment. Continued on metoprolol succinate ER 25 mg at bedtime and list and lisinopril 30 mg daily together with hydrochlorothiazide 12.5 mg once a day in the morning (4) CKD (chronic kidney disease) stage 3, GFR 30-59 ml/min: Code(s): N18.30 - Chronic kidney disease, stage 3 unspecified Category: Medical Plan: Followed by Nephrology. Reinforced importance of getting diabetes mellitus and hypertension under good control (5) Mixed incontinence urge and stress: Code(s): N39.46 - Mixed incontinence Category: Medical Plan: Followed by Urology currently on mirabegron ER 25 mg daily Orders: Orders Hemoglobin A1c 08/09/25 E11.29 - Type 2 diabetes mellitus with other diabetic kidney complication, E78.2 - Mixed hyperlipidemia, I10 - Essential (primary) hypertension, N18.30 - Chronic kidney disease, stage 3 unspecified, N39.46 - Mixed incontinence, Z87.39 - Personal history of other diseases of the musculoskeletal system and connective tissue Alanine Aminotransferase 08/09/25 E11.29 - Type 2 diabetes mellitus with other diabetic kidney complication, E78.2 - Mixed hyperlipidemia, I10 - Essential (primary) hypertension, N18.30 - Chronic kidney disease, stage 3 unspecified, N39.46 - Mixed incontinence, Z87.39 - Personal history of other diseases of the musculoskeletal system and connective tissue Basic Metabolic Panel Fasting 08/09/25 E11.29 - Type 2 diabetes mellitus with other diabetic kidney complication, E78.2 - Mixed hyperlipidemia, I10 - Esse ntial (primary) hypertension, N18.30 - Chronic kidney disease, stage 3 unspecified, N39.46 - Mixed incontinence, Z87.39 - Personal history of other diseases of the musculoskeletal system and connective tissue Aspartate Amino Transferase 08/09/25 E11.29 - Type 2 diabetes mellitus with other diabetic kidney complication, E78.2 - Mixed hyperlipidemia, I10 - Essential (primary) hypertension, N18.30 - Chronic kidney disease, stage 3 unspecified, N39.46 - Mixed incontinence, Z87.39 - Personal history of other diseases of the musculoskeletal system and connective tissue Lipid Panel 08/09/25 E11.29 - Type 2 diabetes mellitus with other diabetic kidney complication, E78.2 - Mixed hyperlipidemia, I10 - Essential (primary) hypertension, N18.30 - Chronic kidney disease, stage 3 unspecified, N39.46 - Mixed incontinence, Z87.39 - Personal history of other diseases of the musculoskeletal system and connective tissue Uric Acid 08/09/25 E11.29 - Type 2 diabetes mellitus with other diabetic kidney complication, E78.2 - Mixed hyperlipidemia, I10 - Essential (primary) hypertension, N18.30 - Chronic kidney disease, stage 3 unspecified, N39.46 - Mixed incontinence, Z87.39 - Personal history of other diseases of the musculoskeletal system and connective tissue Medications: Refilled allopurinol 300 mg PO DAILY 90 tabs 4RF lisinopril 30 mg PO DAILY 90 tabs 4RF hydrochlorothiazide 12.5 mg PO DAILY 90 caps 4RF I10 - Essential (primary) hypertension metformin 1,000 mg PO BID 180 tabs 4RF 90 days metoprolol succinate ER 25 mg PO BEDTIME 90 caps 4RF
--- OUTSIDE RECORDS SUMMARY | 2025-01-14 12:42 | XMS_ITS | Patient Health Record ---
[facility] Organization [facility] Address [address] [place] [address] Care Team Providers Care Accounts Payable Bookkeeper Name Role Phone Maury HERNANDEZ, Savannah Sanchez Primary Care Provider Un available Humza Restrepo Unavailable [phone] Allergies Allergen (clinical drug ingredient) Drug/Non Drug [...] Immunizations Vaccine Route Administration Date Status Comme [facility] COVID-19 Pfizer BioNTech Vaccine Unknown 04/12/2022 Administered [...] Problem Status W/U Status Risk Notes Problem Other hammer toe(s) (acquired), right foot (M20.41) Active confirmed Problem Acquired hammer toe of left foot (1282048875561157 ) Other hammer toe(s) (acquired), left foot (M20.42) Active confirmed Problem Polyneuropathy due to type 2 diabetes mellitus (556655827) Type 2 diabetes mellitus with diabetic polyneuropathy (E11.42) Active confirmed Vital Signs Blood pressure diastolic 75 mm Hg 10/18/2024 Height 5ft5in in 10/18/2024 Blood pressure systolic 130 mm Hg 10/18/2024 Weight 256 lbs 10/18/2024 BMI 42.6 kg/m2 10/18/2024 Procedures Procedure Date Ordered Date Performed Result Body Sit e 81653-HLTGBCH NAIL, 6 OR MORE 10/18/2024 N/A 84955-MWXY SKIN LESIONS, OVER 4 10/18/2024 N/A Encounters Encounter Location Date Provider Diagnosis [facility] [place] [address] [place] [address] 10/18/2024 Humza Restrepo Type 2 diabetes mellitus [...] Treatment Pending Test Test Name Order Date 74666-GGKEIOL NAIL, 6 OR MORE 05/18/2018 63382-JYYFPMD NAIL, 6 OR MORE 06/14/2019 59230-VHKFCSY NAIL, 6 OR MORE 05/12/2017 91595-VWUKQTX NAIL, 6 OR MORE 06/16/2020 88643-CQLBXWU NAIL, 6 OR MORE 06/18/2021 99623-EYABAWA NAIL, 6 OR MORE 10/18/2022 76814-SLIJWXE NAIL, 6 OR MORE 10/20/2023 14453-WQNTDLC NAIL, 6 OR MORE 10/18/2024 29105-Ixbamypl Plate 10/18/2022 78067-Tssfevgc Plate 06/18/2021 09716-Niucgbza Plate 06/16/2020 81067-Jcjiskbx Plate 06/14/2019 77709-Embytewc Plate Each Additional 12/2018 16813-Wulvdazc Plate Each Additional 02/2020 59297-KBBY SKIN LESIONS, OVER 4 06/16/20 20 27764-YFMH SKIN LESIONS, OVER 4 06/14/20 19 52671-FTAT SKIN LESIONS, OVER 4 06/18/20 21 14533-MLUS SKIN LESIONS, OVER 4 10/19/19 23 02329-BGFM SKIN LESIONS, OVER 4 10/20/19 24 92626-ACPT SKIN LESIONS, OVER 4 10/19/19 25 62017-WDGZ SKIN LESIONS, 2 TO 4 05/12/20 17 38240-EZAL SKIN LESIONS, 2 TO 4 05/18/20 18 Next Appt Details Provider Name:Humza Restrepo , 10/21/2025 11:00:00 AM, [address] [place] [address], [address], Insurance Providers Payer Name Payer Address Payer Phone Subscriber Number Group Number Insured Name Patient Relationship to Insured Coverage Start Date Coverage End Date [employer] [place] [employer] [address] [place] [address] [id number] Ashley Mendieta Self - patient is the insured 4 Medical (General) History Medical History History ICD Code Arthritis Back,Hip,and Knee pain Cholesterol Cancer Diabetic Gout Measles Mumps Chicken pox Hypertension Neuropathy Osteoporosis Surgical History Surgery Date(Month/Year) tonsillectomy section 1970 laproscopy 1974 neck surgery 2000 back surgery 2007 ,2013 right hip replacement 2013 breast surgery TYRA 2014
--- OUTSIDE RECORDS SUMMARY | 2025-01-14 12:42 | XMS_ITS | Clinical Summary ---
Author Organization [facility] Address [address] [place] [address] Phone Care Team Providers Care Electronic Device Monitor Name Role Phone Román Mendiola MD Primary Care Provider [phone]- [phone] Allergies No known active allergies Medications [place]-3 Fatty Acids (Fish Oil [place]-3) 1000 MG capsule Take 2 capsules by [...] Visual Foot Exam 03/16/2021 Influenza Vaccine (#1) 2025 , 05/18/2018, 03/15/2017 Hepatitis B Vaccine Aged Out No longe r eligible based on patient's age to complete this topic Insurance [facility] [place] [facility] [place] Care Teams Electronic Device Monitor Relationship Specialty Start Date End Date Román Mendiola [place] [address] PCP - General 07/20/20
--- OUTSIDE RECORDS SUMMARY | 2025-01-14 12:43 | XMS_ITS | Patient Health Record ---
Author Organization [facility] Address [address] [place] [address] Care Team Providers Care Green End Department Supervisor Name Role Phone Savannah Mendiola MD Primary Care Provider Angel Mora Unavailable [phone] Reason For Referral No Information Medications Medication [...] Problem Status W/U Status Risk Notes Problem [id number] Encounter for screening for malignant neoplasm of colon (Z12.11) Active confirmed Problem Screening for malignant neoplasm of rectum (782294597) Encounter for screening for malignant neoplasm of rectum (Z12.12) Active confirmed Problem 85447102 Preprocedural examination (Z01.818) Active confirmed Problem 067157318 Aspirin long-ter m use (Z79.82) Active confirmed Plan Of Treatment Future Test Test Name Order Date COLONOSCOPY 05/14/2015 Insurance Providers Payer Name Payer Address Payer Phone Subscriber Number Group Number Insured Name Patient Relationship to Insured Coverage Start Date Coverage End Date [facility] [address] [facility] [phone] [id number] RYNE COLEMAN Self - patient is the insured Medical (General) History Medical History History ICD Code Colonoscopy 11/11/2002--hype rplastic polyp, diverticulosis, internal hemorrhoids HTN IDDM Gout Neuropathy in UE's from C-spine disc dis ease Denies CT,CVA,Lung disease,renal disease Surgical History Surgery Date(Month/Year) x 1 1971 cervical spine surgery 2000 Right Hip replacement 2012 laparoscopy 1975 tonsils Back surgery Scheduled for bilateral kris st biopsies 05/15/[address] [facility] for abnormal mammograms
== END 2025-01-14 12:55 | disposition home or self-care (01) ==
LOC: HO.HMCC 11:38
PROVIDERS: PCP Internal Medicine; Visit Provider Internal Medicine
DX: E78.2 Mixed hyperlipidemia (principal); E11.29 Type 2 diabetes mellitus with other diabetic kidney complication; I10 Essential (primary) hypertension; N18.30 Chronic kidney disease, stage 3 unspecified; N39.46 Mixed incontinence

== ENCOUNTER → 2025-01-14 11:38 | Outpatient (BNVA) | payer MEDICARE, SELFPAY | PROVIDERS: PCP Internal Medicine; Visit Provider Internal Medicine | DX: E11.22 Type 2 diabetes mellitus with diabetic chronic kidney disease (principal); E11.29 Type 2 diabetes mellitus with other diabetic kidney complication; E11.42 Type 2 diabetes mellitus with diabetic polyneuropathy; I12.9 Hypertensive chronic kidney disease with stage 1 through stage 4 chronic kidney disease, or unspecified chronic kidney disease; N18.30 Chronic kidney disease, stage 3 unspecified; E78.2 Mixed hyperlipidemia; N39.46 Mixed incontinence | CPT/HCPCS: 96127; 99212 ==

== ENCOUNTER 2025-02-13 11:14 | Outpatient (AMB) | payer MEDICARE, SELFPAY ==
--- NOTE | 2025-02-13 11:17 | MHC.OFFVIS ---
Intake Visit Reasons: / US Intake Note: Patient is present for / Urology Medication:ALLOPURINOL,MIRABEGRON Antibiotic Allergy:NONE Blood Thinner:ASPIRIN Armored Machine Operator Required: No Allergies No Known Allergies Allergy (Mild, Verified 02/13/25 12:00) NONE Medication List - Last Reconciled 02/13/25 by CINDY Frankel acetaminophen ER 650 mg PO Q8H PRN allopurinol 300 mg PO DAILY aspirin 81 mg PO DAILY blood sugar diagnostic (FreeStyle Lite Strips) Test blood sugar once a day blood-glucose meter As directed cholecalciferol (vitamin D3) (Vitamin D3) 50 mcg PO DAILY gabapentin 300 mg PO BID hydrochlorothiazide 12.5 mg PO DAILY lancets As directed lisinopril 30 mg PO DAILY metformin 1,000 mg PO BID 90 days metoprolol succinate ER 25 mg PO BEDTIME mirabegron ER (Myrbetriq) 50 mg PO DAILY 90 days multivitamin 1 cap PO DAILY omega 8-ebe-luo-fish oil 1,000 (120-180) mg (Fish Oil) 1 cap PO DAILY pravastatin 20 mg PO DAILY HPI Comments Details: Ashley is a 74-year-old female patient of Dr. Mendiola was accompanied by her at today's office visit. 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 She presents to the office today for follow-up. Of note, patient was seen approximately 3 months ago as a new patient for mixed urinary incontinence at which time a retroperitoneal ultrasound was ordered for further assessment evaluation in the patient was started on 25 mg of Myrbetriq. She was unable to have imaging performed as she did not feel she was able to perform bladder prep. She does report somewhat improvement in lower urinary tract symptoms she had been experiencing however she does continue with stress/urge incontinence. She feels symptoms have lessened however they are still present. We did discussed further treatment options and risks and benefits of these treatment options. She had previously trialed oxybutynin however did not find this helpful in experience dry mouth. We discussed in office cystoscopy and or urodynamics for further assessment evaluation. We also discussed attempting to obtain retroperitoneal ultrasound for further assessment evaluation. All questions were answered. She denies hematuria, dysuria, foul-smelling urine, flank pain, fever, and or chills. She discusses having followed up with nephrology as planned She otherwise offers no other issues or concerns at this time. In review of patient's chart it appears last A1c 01/31 6.1 PFSH Medical History Mixed incontinence urge and stress History of breast cancer History of gout Chronic kidney disease Lumbosacral radiculopathy due to degenerative joint disease of spine Thoracic disc herniation Cervical stenosis of spinal canal Osteoarthritis of multiple joints Peripheral venous insufficiency Type 2 diabetes mellitus with polyneuropathy Diabetes mellitus with kidney complication, without long-term current use of insulin Mixed dyslipidemia Osteopenia Surgical History History of right hip replacement H/O laparoscopy H/O section History of tonsillectomy H/O lumpectomy Family History Father Insulin dependent diabetes mellitus Mother HTN (hypertension) Stroke Brother HTN (hypertension) Brother No problems noted. Son No problems noted. Social History Housing: House Alcohol intake: never Patient Tobacco Use Status: Former Tobacco user e-Cigarette/Vaping Use: Never Used Second Hand Smoke Exposure: No Current occupational status: retired Cognitive needs: No Hearing needs: No Vision needs: No Review of Systems Eyes Reports no additional complaints ENT Reports no additional complaints Card Reports as per HPI Resp Reports no additional complaints GI Reports no additional complaints Reports as per HPI Musc Reports as per HPI Skin/Breast Reports as per HPI Neuro Reports as per HPI Psych Reports no additional complaints Endo Reports as per HPI Physical Exam Const General: cooperative, comfortable, no acute distress, well developed, alert and awake Nutritional Appearance: overweight Orientation/consciousness: patient oriented x3 Limitations: wheelchair HEENT Head: Yes normal to inspection, Yes normocephalic and Yes atraumatic Ears: hearing grossly normal bilaterally Eyes General: appearance normal, both eyes and all related structures Neck Neck: Yes normal visual inspection and Yes trachea midline Chest Chest palpation & inspection: normal inspection of the chest Resp Effort & Inspection: normal respiratory effort and able to speak in complete sentences Cardio Rate: regular rate GI Inspection: Yes normal to inspection General: Yes no CVA tenderness Back/Spine/Pelvis Back: no CVA tenderness Skin General skin exam: no rashes or lesions noted Neuro General: patient oriented x3 Extrem General: Yes normal to inspection Psych Appearance: grossly normal and well kempt Mental Status: mental status grossly normal Speech and movement: Normal speech and movement present and Clear speech present Affect: normal affect Attitude: cooperative Thought process: Normal thought process present Thought content: Normal thought content present Insight: Fair insight present (Psych) Judgement: Fair judgement present (Psych) Assessment & Plan Assessment & Plan (1) Mixed incontinence urge and stress: Code(s): N39.46 - Mixed incontinence Category: Medical Plan Will increase Myrbetriq to 50 mg daily; refill provided for 90 day supply as this is cheaper per patient request. We did discuss the importance of timed/scheduled voiding given decreased mobility. We also discussed further treatment options and risks and benefits of these treatment options. All questions were answered. Will attempt to obtain retroperitoneal ultrasound as planned. Follow-up in 3 months with [facility]; or sooner with any issues, concerns, and or questions. Orders: Orders US retroperitoneal comp Today N39.46 - Mixed incontinence Medications: New mirabegron ER (Myrbetriq) This is an increase in dose Patient prefers 90 day supply as this is cheaper by her insurance 50 mg PO DAILY 90 tabs 1RF 90 days Discontinued mirabegron ER (Myrbetriq) Discontinued Reason: Doctor's Order 25 mg PO DAILY 30 days 30 tabs 3RF N30.10 - Interstitial cystitis (chronic) without hematuria, N32.81 - Overactive bladder, R35.1 - Nocturia, R39.15 - Urgency of urination Patient Instructions: The patient had an opportunity to ask questions regarding the treatment plan. All questions were answered. Physical exam, labs, and imaging were discussed and reviewed in detail. As well as risks, benefits, and discussion of treatment choices. No major barriers to understanding were identified. The patient expressed understanding and agreement with the above treatment plan. The patient was made aware they should contact our office by phone for worsening of their current condition, the appearance of new symptoms, or with any questions or concerns. Compliance is encouraged with any medications and follow up testing that is ordered. It is a privilege to be allowed the opportunity to participate in? your urological care.? Again, if you have any questions or concerns If you have any questions or concerns please do not hesitate to contact me. The office is [phone]. This note is constructed using voice recognition software. While every effort has been made to ensure accuracy c python developer errors may have been included. Yours sincerely, CINDY Frankel Coding Level of Care Code Est Pt Level 3 (49825) Complex EM visit Add On G2211 Diagnoses Mixed incontinence urge and stress N39.46
--- OUTSIDE RECORDS SUMMARY | 2025-02-13 11:54 | XMS_ITS | Patient Health Record ---
Author Organization [facility] Address [address] [place] [address] Care Team Providers Care Lens Finisher Name Role Phone Savannah Mendiola MD Primary Care Provider Angel Mora Unavailable [phone] Reason For Referral No Information Medications Medication [...] Problem Status W/U Status Risk Notes Problem 147418263 Encounter for screening for malignant neoplasm of colon (Z12.11) Active confirmed Problem Screening for malignant neoplasm of rectum (488330765) Encounter for screening for malignant neoplasm of rectum (Z12.12) Active confirmed Problem 59780233 Preprocedural examination (Z01.818) Active confirmed Problem 871497812 Aspirin long-ter m use (Z79.82) Active confirmed Plan Of Treatment Future Test Test Name Order Date COLONOSCOPY 05/14/2015 Insurance Providers Payer Name Payer Address Payer Phone Subscriber Number Group Number Insured Name Patient Relationship to Insured Coverage Start Date Coverage End Date [facility] [address] [facility] [phone] [id number] RYNE COLEMAN Self - patient is the insured Medical (General) History Medical History History ICD Code Colonoscopy 11/11/2002--hype rplastic polyp, diverticulosis, internal hemorrhoids HTN IDDM Gout Neuropathy in UE's from C-spine disc dis ease Denies AR,CVA,Lung disease,renal disease Surgical History Surgery Date(Month/Year) x 1 1971 cervical spine surgery 2000 Right Hip replacement 2012 laparoscopy 1975 tonsils Back surgery Scheduled for bilateral k[facility] biopsies 05/15/15 at [facility] for abnormal mammograms
--- OUTSIDE RECORDS SUMMARY | 2025-02-13 11:54 | XMS_ITS | Clinical Summary ---
Author Organization [facility] Address [address] [place] [address] Phone Care Team Providers Care Real Estate Assistant Name Role Phone Román Mendiola MD Primary Care Provider [phone]- [phone] Allergies No known active allergies Medications [place]-3 Fatty Acids (Fish Oil [place]-3) 1000 MG capsule Take 2 capsules by [...] patient's age to complete this topic Insurance [facility] Care Teams Real Estate Assistant Relationship Specialty Start Date End Date Román Mendiola MD [place] [address] PCP - General 07/20/20
--- OUTSIDE RECORDS SUMMARY | 2025-02-13 11:54 | XMS_ITS | Patient Health Record ---
Author Organization [facility] Address [address] [place] [address] Care Team Providers Care Quill Cleaning Machine Operator Name Role Phone Maury HERNANDEZ, Savannah Sanchez Primary Care Provider Un available Humza Restrepo Unavailable [phone] Allergies Allergen (clinical drug ingredient) Drug/Non Drug [...] Vaccine Route Administration Date Status Comme nts Influenza Unknown 03/15/2017 Administered Influenza Unknown 05/18/2018 Administered Influenza Unknown 04/12/2022 Administered Pneumococcal Unknown 05/13/2016 Administered COVID-19 Pfizer BioNTech Vaccine Unknown 04/12/2022 Administered 1st 10/14/20 2nd 11/04/20 3rd 05/15/21 Social History Tobacco Use: Social History Observation [...] Problem Acquired hammer toe of right foot (7293343319511905 ) Other hammer toe(s) (acquired), right foot (M20.41) Active confirmed Problem Acquired hammer toe of left foot (2508930598622832 ) Other hammer toe(s) (acquired), left foot (M20.42) Active confirmed Problem Polyneuropathy due to type 2 diabetes mellitus (147275337) Type 2 diabetes mellitus with diabetic polyneuropathy (E11.42) Active confirmed Vital Signs Blood pressure diastolic 75 mm Hg 10/18/2024 Height 5ft5in in 10/18/2024 Blood pressure systolic 130 mm Hg 10/18/2024 Weight 256 lbs 10/18/2024 BMI 42.6 kg/m2 10/18/2024 Procedures Procedure Date Ordered Date Performed Result Body Sit e 16523-TQIWUCS NAIL, 6 OR MORE 10/18/2024 N/A 46893-DAHV SKIN LESIONS, OVER 4 10/18/2024 N/A Encounters Encounter Location Date Provider Diagnosis [facility] [place] [address] [place] [address] 10/18/2024 Humza Restrepo Type 2 diabetes mellitus [...] Treatment Pending Test Test Name Order Date 83759-OACLKCS NAIL, 6 OR MORE 05/18/2018 61508-DMEXPMA NAIL, 6 OR MORE 06/14/2019 71790-QVKNYWX NAIL, 6 OR MORE 05/12/2017 71020-NXBZVLA NAIL, 6 OR MORE 06/16/2020 74015-SQVBJMV NAIL, 6 OR MORE 06/18/2021 49582-NKSQTPD NAIL, 6 OR MORE 10/18/2022 71297-DTBWGCO NAIL, 6 OR MORE 10/20/2023 72151-TBZTRXS NAIL, 6 OR MORE 10/18/2024 39723-Vqidirxr Plate 10/18/2022 02786-Iyztkdmy Plate 06/18/2021 32775-Xmqdyhsw Plate 06/16/2020 75286-Xzlwgtrn Plate 06/14/2019 26421-Koflnlvd Plate Each Additional 12/2018 53278-Jcdixhee Plate Each Additional 02/2020 87816-IFZQ SKIN LESIONS, OVER 4 06/16/20 20 00584-QOED SKIN LESIONS, OVER 4 06/14/20 19 18084-LQRB SKIN LESIONS, OVER 4 06/18/20 21 32163-OFRJ SKIN LESIONS, OVER 4 10/19/19 23 99863-UGQD SKIN LESIONS, OVER 4 10/20/19 24 38786-KWPH SKIN LESIONS, OVER 4 10/19/19 25 15916-GYMJ SKIN LESIONS, 2 TO 4 05/12/20 17 18806-CQBB SKIN LESIONS, 2 TO 4 05/18/20 18 Next Appt Details Provider Name:Humza Restrepo , 10/21/2025 11:00:00 AM, [address] [place] [address], [place], [address], Insurance Providers Payer Name Payer Address Payer Phone Subscriber Number Group Number Insured Name Patient Relationship to Insured Coverage Start Date Coverage End Date [employer] [place] [employer] [address] [facility] [address] [facility] [place] [place] [address] [id number] Ashley Mendieta Self - patient is the insured 4 Medical (General) History Medical History History ICD Code Arthritis Back,Hip,and Knee pain Cholesterol Cancer Diabetic Gout Measles Mumps Chicken pox Hypertension Neuropathy Osteoporosis Surgical History Surgery Date(Month/Year) tonsillectomy section 1970 laproscopy 1975 neck surgery 2001 back surgery 2007 ,2013 right hip replacement 2013 breast surgery TYRA 2014
== END 2025-02-13 11:58 | disposition home or self-care (01) ==
LOC: HO.HUSH 11:14
PROVIDERS: PCP Internal Medicine; Visit Provider Nurse Practitioner Family
DX: N39.46 Mixed incontinence (principal)
CPT/HCPCS: 99213; G2211

== ENCOUNTER → 2025-02-13 11:14 | Outpatient (BNVA) | payer MEDICARE, SELFPAY | PROVIDERS: PCP Internal Medicine; Visit Provider Nurse Practitioner Family | DX: N39.46 Mixed incontinence (principal) | CPT/HCPCS: 99212 ==

== ENCOUNTER 2025-05-07 11:17 | Outpatient (REF) | payer MEDICARE, SELFPAY ==
--- NOTE | ~2025-05-07 | US_ITS ---
CLINICAL HISTORY: N39.46 - Mixed incontinence --- Additional Notes or Special Instructions: Patient will try her best to do bladder prepped prior to imaging per US Renal Comparison: None provided Findings: Right kidney normal size and echotexture, 10.9 x 5.5 x 8 cm length. Left kidney normal size and echotexture, 11 x 5.9 x 7.8 cm length. No collecting system dilatation of either kidney. Normal color Doppler. Small bilateral cortical renal cysts are noted, the largest on the right in the lower polar region measuring nearly 2.4 cm and the largest on the left in the upper polar region measuring nearly 14 mm. No gross complex features are seen. Urinary bladder is unremarkable. Prevoid volume 99 mL. Postvoid volume 11 mL. Bilateral ureteral jets are not visualized. IMPRESSION: Small bilateral cortical renal cysts. Otherwise unremarkable sonographic evaluation of the bilateral kidneys and bladder. No signs of obstructive uropathy. This document has been electronically signed by: Sylvester Rivera MD on 05/08/2025 06:36:08
--- OUTSIDE RECORDS SUMMARY | 2025-05-07 14:23 | XMS_ITS | Patient Health Record ---
Author Organization [facility] Address [address] [place] [address] Care Team Providers Care Salvage Diver Name Role Phone Maury HERNANDEZ, Savannah Sanchez Primary Care Provider Un available Humza Restrepo Unavailable [phone] Allergies Allergen (clinical drug ingredient) Drug/Non Drug Allergy documented on EMR Reaction Allergy Type Onset Date Status Adhesive Unknown Allergy Active Results Component Value Reference Range Notes HEMOGLOBIN A1C (GLYCOHEMOGLO BIN) Reviewed date:10/18/2024 10:53:44 AM Interpretation: Performing Lab: Notes/Report: HEMOGLOBIN A1C % (HH) 6.0 HEMOGLOBIN A1C (GLYCOHEMOGLO BIN) Reviewed date:03/13/2025 12:20:49 PM Interpretation: Performing Lab: Notes/Report: HEMOGLOBIN A1C % [...] 2.5 MG Orally Once a day Not-Taking -81 Active Lantus SoloStar 10 units QD Not-Taking [...] Problem Acquired hammer toe of right foot (7222285682825322 ) Other hammer toe(s) (acquired), right foot (M20.41) Active confirmed Problem Acquired hammer toe of left foot (0155975300263881 ) Other hammer toe(s) (acquired), left foot (M20.42) Active confirmed Problem Polyneuropathy due to type 2 diabetes mellitus (077960067) Type 2 diabetes mellitus with diabetic polyneuropathy (E11.42) Active confirmed Vital Signs Blood pressure diastolic 75 mm Hg 10/18/2024 Height 5ft5in in 10/18/2024 Blood pressure systolic 130 mm Hg 10/18/2024 Weight 256 lbs 10/18/2024 BMI 42.6 kg/m2 10/18/2024 Procedures Procedure Date Ordered Date Performed Result Body Sit e 93251-YIOVQOO NAIL, 6 OR MORE 10/18/2024 N/A 49805-SJAU SKIN LESIONS, OVER 4 10/18/2024 N/A Encounters Encounter Location Date Provider Diagnosis [facility] [place] [address] [place] [address] 10/18/2024 Humza Restrepo Type 2 diabetes mellitus [...] Treatment Pending Test Test Name Order Date 92736-FWVEYSC NAIL, 6 OR MORE 05/18/2018 43457-SBXGVSJ NAIL, 6 OR MORE 06/14/2019 37908-ONDQXEM NAIL, 6 OR MORE 05/12/2017 17471-LPAFFMW NAIL, 6 OR MORE 06/16/2020 96871-TYFPQVH NAIL, 6 OR MORE 06/18/2021 25158-LJOWNZY NAIL, 6 OR MORE 10/18/2022 84689-GWYUORN NAIL, 6 OR MORE 10/20/2023 84653-LPFLFMQ NAIL, 6 OR MORE 10/18/2024 90949-Nswrffkw Plate 10/18/2022 09381-Qmhnatet Plate 06/18/2021 11971-Vgpdqltz Plate 06/16/2020 10810-Rckktnpo Plate 06/14/2019 07435-Kthxfhsx Plate Each Additional 12/2018 30015-Gomrclhd Plate Each Additional 02/2020 35599-GPIX SKIN LESIONS, OVER 4 06/16/20 20 67629-HPOE SKIN LESIONS, OVER 4 06/14/20 19 76507-UCHB SKIN LESIONS, OVER 4 06/18/20 21 19686-MTXD SKIN LESIONS, OVER 4 10/19/19 23 50233-GMDP SKIN LESIONS, OVER 4 10/20/19 24 65673-VVEU SKIN LESIONS, OVER 4 10/19/19 25 68875-KOET SKIN LESIONS, 2 TO 4 05/12/20 17 53318-QIFE SKIN LESIONS, 2 TO 4 05/18/20 18 Next Appt Details Provider Name:Humza Restrepo , 10/21/2025 11:00:00 AM, [address] [facility], [place], [address], Insurance Providers Payer Name Payer Address Payer Phone Subscriber Number Group Number Insured Name Patient Relationship to Insured Coverage Start Date Coverage End Date [employer] [place] [employer] [facility] [address] [place] [address] [id number] Ashley Mendieta Self - patient is the insured 4 Medical (General) History Medical History History ICD Code Arthritis Back,Hip,and Knee pain Cholesterol Cancer Diabetic Gout Measles Mumps Chicken pox Hypertension Neuropathy Osteoporosis Surgical History Surgery Date(Month/Year) tonsillectomy section 1970 laproscopy 1975 neck surgery 2000 back surgery 2007 ,2013 right hip replacement 2013 breast surgery TYRA 2014
--- OUTSIDE RECORDS SUMMARY | 2025-05-07 14:23 | XMS_ITS | Patient Health Record ---
Author Organization [facility] Address [address] [place] [address] Care Team Providers Care Mold Loft Worker Name Role Phone Savannah Mendiola MD Primary Care Provider Angel Mora Unavailable [phone] Reason For Referral No Information Medications Medication SIG (Take, Route, Frequency, Duration) Notes Start Date End Date Status Colyte w Flavor Packs 240 GM as directed Orally as directed; Duration: 1 day(s) 05/16/2015 Active Lantus SoloStar 100 [...] Problem Status W/U Status Risk Notes Problem Screening for malignant neoplasm of colon (087599944) Encounter for screening for malignant neoplasm of colon (Z12.11) Active confirmed Problem Screening for malignant neoplasm of rectum (961679361) Encounter for screening for malignant neoplasm of rectum (Z12.12) Active confirmed Problem Preprocedural examination (667566977544546) Preprocedural examination (Z01.818) Active confirmed Problem Long-term current use of aspirin (840608687815960) Aspirin long-term use (Z79.82) Active confirmed Plan Of Treatment Future Test Test Name Order Date COLONOSCOPY 05/14/2015 Insurance Providers Payer Name Payer Address Payer Phone Subscriber Number Group Number Insured Name Patient Relationship to Insured Coverage Start Date Coverage End Date [facility] [address] [place] [phone] [id number] RYNE COLEMAN Self - patient is the insured Medical (General) History Medical History History ICD Code Colonoscopy 11/11/2002--hype rplastic polyp, diverticulosis, internal hemorrhoids HTN IDDM Gout Neuropathy in UE's from C-spine disc dis ease Denies LA,CVA,Lung disease,renal disease Surgical History Surgery Date(Month/Year) x 1 1971 cervical spine surgery 2000 Right Hip replacement 2012 laparoscopy 1975 tonsils Back surgery Scheduled for bilateral kris [facility] biopsies 05/15/15 at [facility] for abnormal mammograms
== END 2025-05-07 11:18 | disposition home or self-care (01) ==
LOC: HO.HMGCX 11:17
PROVIDERS: PCP Internal Medicine; Visit Provider Nurse Practitioner Family
DX: N39.46 Mixed incontinence (principal)
CPT/HCPCS: 76770

== ENCOUNTER → 2025-05-07 11:19 | Outpatient (BNV) | payer MEDICARE, SELFPAY | PROVIDERS: PCP Internal Medicine; Visit Provider Radiology Diagnostic Radiology | DX: N28.1 Cyst of kidney, acquired (principal) | CPT/HCPCS: 76770 ==

== ENCOUNTER 2025-05-20 11:39 | Outpatient (AMB) | payer MEDICARE, SELFPAY ==
--- NOTE | 2025-05-20 11:45 | A.OFFVIS_ITS ---
Intake Visit Reasons: /US Intake Note: Patient is present for / Urology Medication:ALLOPURINOL,MYRBETRIQ Antibiotic Allergy:NONE Blood Thinner:ASPIRIN Diffusion Operator Required: No Allergies No Known Allergies Allergy (Mild, Verified 05/20/25 11:46) NONE HPI Comments Details: Ashley is a 75-year-old female patient of Dr. Mendiola was accompanied by her at today's office visit. 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 She presents to the office today for follow-up of her lower urinary tract symptoms. In discussion with the patient today she reports to be doing and feeling well. She reports feeling she is happy with her current voiding parameters on 50 mg of Myrbetriq. She does continue to have episodes of urge incontinence however feels this is related to her delay in utilizing the bathroom. She reports at times she gets the urge to go however will delay bathroom use. We did discussed importance of utilizing the bathroom as she also has decreased mobility. Most recent retroperitoneal ultrasound results reviewed with the patient today. 05/03 bilateral kidneys are normal in size and echotexture. No collecting system dilatation of either kidney. Normal color Doppler. Small bilateral cortical renal cysts are noted, the largest on the right in the lower polar region measuring 2.4 cm. No gross complex features are seen. The urinary bladder is unremarkable. Postvoid bladder volume 10 mL. No signs of obstructive uropathy per radiology report. In office urinalysis results reviewed with the patient today. She has previously trialed oxybutynin however did not find this helpful. We did discussed further treatment options of her lower urinary tract symptoms and risks and benefits of these treatment options. However, patient feels she is happy with current management at this time. We discussed in office cystoscopy and or urodynamics for further assessment evaluation. All questions were answered. She denies hematuria, dysuria, foul-smelling urine, flank pain, fever, and or chills. She discusses having followed up with nephrology as planned She otherwise offers no other issues or concerns at this time. In review of patient's chart it appears last A1c 01/31 6.1. [facility] Medical History Mixed incontinence urge and stress History of breast cancer History of gout Chronic kidney disease Lumbosacral radiculopathy due to degenerative joint disease of spine Thoracic disc herniation Cervical stenosis of spinal canal Osteoarthritis of multiple joints Peripheral venous insufficiency Type 2 diabetes mellitus with polyneuropathy Diabetes mellitus with kidney complication, without long-term current use of insulin Mixed dyslipidemia Osteopenia Surgical History History of right hip replacement H/O laparoscopy H/O section History of tonsillectomy H/O lumpectomy Family History Father Insulin dependent diabetes mellitus Mother HTN (hypertension) Stroke Brother HTN (hypertension) Brother No problems noted. Son No problems noted. Social History Housing: House Alcohol intake: never Patient Tobacco Use Status: Former Tobacco user e-Cigarette/Vaping Use: Never Used Second Hand Smoke Exposure: No Current occupational status: retired Cognitive needs: No Hearing needs: No Vision needs: No Review of Systems Eyes Reports no additional complaints ENT Reports no additional complaints Card Reports as per HPI Resp Reports no additional complaints GI Reports no additional complaints Reports as per HPI Musc Reports as per HPI Skin/Breast Reports as per HPI Neuro Reports as per HPI Psych Reports no additional complaints Endo Reports as per HPI Physical Exam Const General: cooperative, comfortable, no acute distress, well developed, alert and awake Nutritional Appearance: overweight Orientation/consciousness: patient oriented x3 Limitations: wheelchair HEENT Head: Yes normal to inspection, Yes normocephalic and Yes atraumatic Ears: hearing grossly normal bilaterally Eyes General: appearance normal, both eyes and all related structures Neck Neck: Yes normal visual inspection and Yes trachea midline Chest Chest palpation & inspection: normal inspection of the chest Resp Effort & Inspection: normal respiratory effort and able to speak in complete sentences Cardio Rate: regular rate GI Inspection: Yes normal to inspection General: Yes no CVA tenderness Back/Spine/Pelvis Back: no CVA tenderness Skin General skin exam: no rashes or lesions noted Neuro General: patient oriented x3 Extrem General: Yes normal to inspection Psych Appearance: grossly normal and well kempt Mental Status: mental status grossly normal Speech and movement: Normal speech and movement present and Clear speech present Affect: normal affect Attitude: cooperative Thought process: Normal thought process present Thought content: Normal thought content present Insight: Fair insight present (Psych) Judgement: Fair judgement present (Psych) Results Reviewed Results Reviewed: Date of Service: 05/07/25 Procedure(s): US retroperitoneal comp Findings: Right kidney normal size and echotexture, 10.9 x 5.5 x 8 cm length. Left kidney normal size and echotexture, 11 x 5.9 x 7.8 cm length. No collecting system dilatation of either kidney. Normal color Doppler. Small bilateral cortical renal cysts are noted, the largest on the right in the lower polar region measuring nearly 2.4 cm and the largest on the left in the upper polar region measuring nearly 14 mm. No gross complex features are seen. Urinary bladder is unremarkable. Prevoid volume 99 mL. Postvoid volume 11 mL. Bilateral ureteral jets are not visualized. IMPRESSION: Small bilateral cortical renal cysts. Otherwise unremarkable sonographic evaluation of the bilateral kidneys and bladder. No signs of obstructive uropathy. Assessment & Plan Assessment & Plan (1) Mixed incontinence urge and stress: Code(s): N39.46 - Mixed incontinence Category: Medical Plan In office urinalysis results reviewed the patient today; as noted above. Most recent retroperitoneal ultrasound results reviewed with the patient today; as noted above. All questions were answered. Will continue with 50 mg of Myrbetriq daily as discussed and prescribed She currently denies any bothersome urinary issues or concerns. She reports be happy with current voiding parameters. Will continue with surveillance monitoring. We discussed importance of healthy bathroom behaviors We did discussed further treatment options and risks and benefits of these treatment options. Follow-up in 1 year with [facility]; or sooner with any issues, concerns, and or questions. Patient Instructions: The patient had an opportunity to ask questions regarding the treatment plan. All questions were answered. Physical exam, labs, and imaging were discussed and reviewed in detail. As well as risks, benefits, and discussion of treatment oliveira margarita. No major barriers to understanding were identified. The patient expressed understanding and agreement with the above treatment plan. The patient was made aware they should contact our office by phone for worsening of their current condition, the appearance of new symptoms, or with any questions or concerns. Compliance is encouraged with any medications and follow up testing that is ordered. It is a privilege to be allowed the opportunity to participate in? your urological care.? Again, if you have any questions or concerns If you have any questions or concerns please do not hesitate to contact me. The office is [phone]. This note is constructed using voice recognition software. While every effort has been made to ensure accuracy scan coordinator errors may have been included. Yours sincerely, CINDY Frankel Coding Level of Care Code Est Pt Level 3 (29045) Complex EM visit Add On G2211 Diagnoses Mixed incontinence urge and stress N39.46
--- OUTSIDE RECORDS SUMMARY | 2025-05-20 13:42 | XMS_ITS | Patient Health Record ---
Author Organization [facility] Address [address] [place] [address] Care Team Providers Care Photo Lab Technician Name Role Phone Savannah Mendiola MD Primary Care Provider Angel Mora Unavailable [phone] Reason For Referral No Information Medications Medication [...] Problem Screening for malignant neoplasm of colon (220884532) Encounter for screening for malignant neoplasm of colon (Z12.11) Active confirmed Problem Screening for malignant neoplasm of rectum (847342983) Encounter for screening for malignant neoplasm of rectum (Z12.12) Active confirmed Problem Preprocedural examination (933791888279544) Preprocedural examination (Z01.818) Active confirmed Problem Long-term current use of aspirin (809981200954367) Aspirin long-term use (Z79.82) Active confirmed Plan Of Treatment Future Test Test Name Order Date COLONOSCOPY 05/14/2015 Insurance Providers Payer Name Payer Address Payer Phone Subscriber Number Group Number Insured Name Patient Relationship to Insured Coverage Start Date Coverage End Date [facility] [address] [place] [phone] [id number] RYNE COLEMAN Self - patient is the insured Medical (General) History Medical History History ICD Code Colonoscopy 11/11/2002--hype rplastic polyp, diverticulosis, internal hemorrhoids HTN IDDM Gout Neuropathy in UE's from C-spine disc dis ease Denies ID,CVA,Lung disease,renal disease Surgical History Surgery Date(Month/Year) x 1 1971 cervical spine surgery 2000 Right Hip replacement 2012 laparoscopy 1975 tonsils Back surgery Scheduled for bilateral kris st biopsies 05/15/15 at [facility] [place] abnormal mammograms
--- OUTSIDE RECORDS SUMMARY | 2025-05-20 13:42 | XMS_ITS | Patient Health Record ---
Author Organization [facility] Address [address] [place] [address] Care Team Providers Care Computer Technical Support Specialist Name Role Phone Maury HERNANDEZ, Savannah Sanchez Primary Care Provider Un available Humza Restrepo Unavailable [phone] Allergies Allergen (clinical drug ingredient) Drug/Non Drug [...] Problem Acquired hammer toe of right foot (7659592245021236 ) Other hammer toe(s) (acquired), right foot (M20.41) Active confirmed Problem Acquired hammer toe of left foot (2227976842960156 ) Other hammer toe(s) (acquired), left foot (M20.42) Active confirmed Problem Polyneuropathy due to type 2 diabetes mellitus (234152026) Type 2 diabetes mellitus with diabetic polyneuropathy (E11.42) Active confirmed Vital Signs Blood pressure diastolic 75 mm Hg 10/18/2024 Height 5ft5in in 10/18/2024 Blood pressure systolic 130 mm Hg 10/18/2024 Weight 256 lbs 10/18/2024 BMI 42.6 kg/m2 10/18/2024 Procedures Procedure Date Ordered Date Performed Result Body Sit e 93692-CJATPAS NAIL, 6 OR MORE 10/18/2024 N/A 53704-APDS SKIN LESIONS, OVER 4 10/18/2024 N/A Encounters Encounter Location Date Provider Diagnosis [facility] [address] [place] [address] 10/18/2024 Humza Restrepo Type 2 diabetes mellitus [...] Treatment Pending Test Test Name Order Date 99138-DAQEUXW NAIL, 6 OR MORE 05/18/2018 06014-SKYPZBM NAIL, 6 OR MORE 06/14/2019 31210-UXILPQH NAIL, 6 OR MORE 05/12/2017 82532-AFRPSCF NAIL, 6 OR MORE 06/16/2020 83698-MXIYMSY NAIL, 6 OR MORE 06/18/2021 30733-SZYRQQA NAIL, 6 OR MORE 10/18/2022 81297-IOCHACE NAIL, 6 OR MORE 10/20/2023 30600-VGHRRZG NAIL, 6 OR MORE 10/18/2024 61820-Qhmienfi Plate 10/18/2022 81751-Jiowddoo Plate 06/18/2021 09058-Vnfrrprj Plate 06/16/2020 36626-Yzrhlttq Plate 06/14/2019 91464-Jvmqpymc Plate Each Additional 12/2018 77112-Nogedioc Plate Each Additional 02/2020 38351-KYQI SKIN LESIONS, OVER 4 06/16/20 20 98522-YURJ SKIN LESIONS, OVER 4 06/14/20 19 66344-UGBD SKIN LESIONS, OVER 4 06/18/20 21 95509-BVPJ SKIN LESIONS, OVER 4 10/19/19 23 66582-KVMU SKIN LESIONS, OVER 4 10/20/19 24 40069-SACA SKIN LESIONS, OVER 4 10/19/19 25 11616-IPDS SKIN LESIONS, 2 TO 4 05/12/20 17 12770-DKIF SKIN LESIONS, 2 TO 4 05/18/20 18 Next Appt Details Provider Name:Humza Restrepo , 10/21/2025 11:00:00 AM, [address] [facility], [place], [address], Insurance Providers Payer Name Payer Address Payer Phone Subscriber Number Group Number Insured Name Patient Relationship to Insured Coverage Start Date Coverage End Date [employer] [place] [employer] [facility] [address] [place] [address] [id number] Ashley Mendieta Self - patient is the insured 4 Medical (General) History Medical History History ICD Code Arthritis Back,Hip,and Knee pain Cholesterol Cancer Diabetic Gout Measles Mumps Chicken pox Hypertension Neuropathy Osteoporosis Surgical History Surgery Date(Month/Year) tonsillectomy section 1970 laproscopy 1975 neck surgery 2000 back surgery 2007 ,2013 right hip replacement 2013 breast surgery TYRA 2014
== END 2025-05-20 12:57 | disposition home or self-care (01) ==
LOC: HO.HUSH 11:40
PROVIDERS: PCP Internal Medicine; Visit Provider Nurse Practitioner Family
DX: N39.46 Mixed incontinence (principal)
CPT/HCPCS: 99213; G2211

== ENCOUNTER → 2025-05-20 11:39 | Outpatient (BNVA) | payer MEDICARE, SELFPAY | PROVIDERS: PCP Internal Medicine; Visit Provider Nurse Practitioner Family | DX: N39.46 Mixed incontinence (principal) | CPT/HCPCS: 99212 ==